=== PATIENT | female | born 1940 | race Caucasian/White ===

== ENCOUNTER → 2016-08-02 | Outpatient (CLI) | payer OTHER ==
[~2016-08-02] MED LIST: ASPI81TA28 PO; ATOR-22 PO; LISI-729 PO; METO-452 PO
--- NOTE | 2016-08-02 12:53 | DIAGNOSTIC IMAGING REPORT ---
CT OF THE CHEST WITHOUT IV CONTRAST CLINICAL HISTORY: Pulmonary nodule. COMPARISON STUDY: Chest CT December 24, 2014 and July 28, 2015. CT DOSE: 270.72 mGy.cm TECHNIQUE: Axial images of the chest were obtained without IV contrast. Images were reviewed in the axial, sagittal, and coronal planes. IV contrast was not administered for this examination. FINDINGS: No enlarged axillary, mediastinal or hilar lymph nodes are present. There are median sternotomy wires and findings consistent with bypass grafting. There is moderate cardiomegaly. Central airways are patent. There is no consolidation to suggest pneumonia. Lungs are suboptimally assessed due to respiratory motion. A 4 mm right upper lobe nodule shown image 58 of 296 is unchanged. A 5 mm right lower lobe nodule shown image 115 is unchanged. These are stable since exam December 24, 2014. The 6 mm right middle lobe nodule shown on exam of May 05, 2015 is no longer visualized. There are new new no new nodules. The bony thorax and upper abdomen are unremarkable with exception of small gallstones within the gallbladder. IMPRESSION: 1. No change in several small pulmonary nodules since initial exam of December 24, 2014. These are likely benign. A follow-up chest CT in one year to ensure stability is recommended. 2. No acute intrathoracic findings. 3. Moderate cardiomegaly. Electronically signed by: Juan Rubio M.D. 08/02/2016 12:51 PM Dictated Date/Time: 08/02/2016 12:43 PM
== END | disposition home or self-care (01) ==
LOC: C.CTS 12:14
PROVIDERS: ATTEND Internal Medicine
DX: R91.1 Solitary pulmonary nodule (principal); I51.7 Cardiomegaly

== ENCOUNTER → 2017-06-06 | Outpatient (CLI) | payer OTHER ==
[2017-06-06 17:48] LABS: HEMATOCRIT 39.1 % (37-47); HEMOGLOBIN 12.8 g/dL (12.0-16.0); MEAN CELL VOLUME 88.7 fL (80-100); MEAN CORPUSCULAR HGB CONC 32.7 g/dl (32-36); MEAN PLATELET VOLUME 10.3 fL (7.4-10.4); PLATELET COUNT 206 K/uL (130-400); RED CELL DISTRIBUTION WIDTH CV 13.6 % (11.5-14.5); WHITE BLOOD COUNT 6.76 K/uL (4.8-10.8)
[2017-06-06 18:03] LABS: ALBUMIN 3.7 gm/dl (3.4-5.0); ALT/SGPT 15 U/L (12-78); AST/SGOT 14 U/L (15-37); BLOOD UREA NITROGEN 23 mg/dl (7-18); CALCIUM 9.5 mg/dl (8.5-10.1); CARBON DIOXIDE 29 mmol/L (21-32); CHOLESTEROL 248 mg/dl (0-200); CREATININE 1.14 mg/dl (0.60-1.20); GLUCOSE 91 mg/dl (70-99); POTASSIUM 4.6 mmol/L (3.5-5.1); SODIUM 140 mmol/L (136-145)
[2017-06-06 18:06] LABS: ALKALINE PHOSPHATASE 89 U/L (45-117); LDL CHOLESTEROL CALCULATED 188 mg/dl; TOTAL PROTEIN 7.3 gm/dl (6.4-8.2)
== END | disposition home or self-care (01) ==
LOC: C.LABBFT 13:44
PROVIDERS: ATTEND Nurse Practitioner
DX: E78.5 Hyperlipidemia, unspecified (principal)

== ENCOUNTER → 2017-08-07 | Outpatient (CLI) | payer OTHER ==
--- NOTE | 2017-08-07 10:16 | DIAGNOSTIC IMAGING REPORT ---
(CHEST) THORAX WITHOUT CLINICAL HISTORY: R91.1 Pulmonary nodule, COMPARISON STUDY: August 02, 2016 , December [address] CT DOSE: 225.70 mGy.cm TECHNIQUE: CT of the thorax was performed from the thoracic inlet to the lung bases. Images are reviewed in the axial, sagittal, and coronal planes. IV contrast was not administered for this examination. A dose lowering technique was utilized adhering to the principles of ALARA. FINDINGS: Thyroid: Imaged portions of the thyroid gland are normal in appearance. Thoracic aorta: The thoracic aorta is normal in course and caliber, noting standard 3 vessel arch anatomy. Heart: The heart is is mildly enlarged with coronary artery calcifications. Lungs and pleural spaces: There is mild to moderate respiratory motion artifact. There are no pleural effusions. There is a stable 4 mm right apical pulmonary nodule. There is a stable 5 mm pulmonary nodule within the superior segment of the right lower lobe. There is a new/enlarging 4 mm solid right lower lobe pulmonary nodule as visualized in image #127/276. 6-12 month follow-up is recommended. Mediastinum: R paratracheal lymph nodes at the upper limits of normal in size. Joycelyn: There is no evidence of pathologic hilar adenopathy given the limitations of a noncontrast study Axilla: There is no evidence of pathologic axillary lymphadenopathy Upper abdomen: Cholelithiasis Skeletal structures: There are no lytic or blastic osseous lesions. IMPRESSION: 1. Examination compromised due to respiratory motion artifact 2. New/enlarging 4 mm solid right lower lobe pulmonary nodule. 6-12 month follow-up is recommended 3. The previously identified 4 mm right apical pulmonary nodule and 5 mm superior segment right lower lobe pulmonary nodule remains stable 4. Cholelithiasis Electronically signed by: Alex Stein M.D. 08/07/2017 10:15 AM Dictated Date/Time: 08/07/2017 10:05 AM
== END | disposition home or self-care (01) ==
LOC: C.CTS 09:44
PROVIDERS: ATTEND Nurse Practitioner
DX: R91.1 Solitary pulmonary nodule (principal); R91.8 Other nonspecific abnormal finding of lung field; K80.20 Calculus of gallbladder without cholecystitis without obstruction

== ENCOUNTER → 2017-12-05 | Outpatient (CLI) | payer OTHER | END | disposition home or self-care (01) | LOC: C.LABBFT 14:57 | PROVIDERS: ATTEND Internal Medicine | DX: E78.5 Hyperlipidemia, unspecified (principal) ==

== ENCOUNTER 2020-04-10 10:44 | Inpatient (IN) ==
--- NOTE | 2020-04-10 11:20 | Emergency Department Note ---
Impression & Plan COVID-19, Multifocal pneumonia ED Provider Note NAME: MICHELLE MARTIN AGE: 80 SEX: F : 1940 ARRIVES VIA: Walk-In INFORMANT: Patient, ED PROVIDER(S): Stewart Evans MD Chief Complaint: Weakness, fatigue, Cough HPI: Patient does present with weakness fatigue vomiting with associated fever and productive cough. Patient states that this been ongoing for just over the last week. Patient did try to take prednisone this morning but this did not improve her symptoms. The patient denies any fevers. The patient has had the increasing fatigue and has had poor p.o. intake. The patient denies any lower extremity swelling. The patient is a former smoker but no active smoking. The patient does not wear oxygen at baseline. Patient states that her symptoms of gotten progressively worse over this last 7 days or so. The patient denies loss of taste or smell and no known Covid contacts she denies any recent travel or recent surgeries or procedures. ROS: See HPI for pertinent positives and negatives. A total of 10 systems were reviewed and otherwise negative. Past medical history: See below Surgical history: See below Social history: See below Physical Exam: GENERAL: Tired in appearance, wearing a mask and glasses. EYE EXAM: Normal conjunctiva. PERRL, no anisocoria and EOM's grossly intact w/o pain. NECK: Supple, no nuchal rigidity, no adenopathy, non-tender. No signs of meningismus. LUNGS: Clear to auscultation. Normal chest wall mechanics. HEART: NSR, no MRG. ABDOMEN: Abdomen soft, non-tender, normo-active bowel sounds, no masses, no rebound or guarding. BACK: No CVA TTP. SKIN: No rashes and no bruising. UPPER EXTREMITIES: Upper extremities are grossly normal. LOWER EXTREMITIES: Grossly normal, no edema. Negative Homans' sign bilaterally. NEURO EXAM: A&O x3, cranial nerves II-XII grossly intact, normal speech, moves all 4 extremities on command w/o issue. Differential diagnoses: Infection, dehydration, metabolic abnormality, hypo/hyperglycemia, electrolyte disturbance, anemia, hypoxia, cardiac sources, intracerebral event, toxicologic, neurologic, as well as other pathologies. Course: Patient was seen and evaluated the bedside. Full history physical exam was performed. EKG: Indication: Weakness Normal sinus rhythm, rate 91, normal intervals, left axis deviation, no acute inversions inferiorly. No significant change from comparison EKG February 03, 2018. Imaging Studies: Radiology results as stated below per my review in the radiologist's interpretation: XR chest 1V portable CLINICAL HISTORY: weakness COMPARISON STUDY: Chest CT February 09, 2018. Chest radiograph February 02, 2015. FINDINGS: Note is made of median sternotomy wires and mediastinal surgical clips. There is no pneumothorax. There is slight blunting of the left costophrenic angle. This is likely chronic. No definite pleural effusion. Note is made of moderate cardiomegaly. There is no evidence for pulmonary edema. Mild to moderate multifocal bilateral airspace opacities are noted. IMPRESSION: Mild to moderate multifocal bilateral airspace opacities suggestive of an infectious process. Radiographic follow-up is recommended. ACT 112: Negative or not required by law. Electronically signed by: Juan Rubio M.D. 04/10/2020 12:59 PM Dictated: 04/10/20 1257Transcribed: 04/10/20 1257 Cardiac monitoring: An order was placed for continuous cardiac monitoring. The monitor shows a rate of 74 with sinus rhythm. MDM: Patient was seen due to concern for increasing weakness fatigue vomiting cough. Blood was obtained along with an EKG troponin chest x-ray. Patient's chest x- ray did show concern for multifocal pneumonia. The patient did have a brief episode of hypoxia. The patient is Covid positive. Patient did have improvement in her symptoms but given the patient has had increasing weakness fatigue poor p.o. intake is Covid positive and intermittent hypoxia believe the patient would benefit from inpatient treatment. I did speak with the hospitalist Dr. Ruby, and the patient was admitted to the medicine service. 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, saphenous growing graft to OM2, saphenous vein graft to RCA-January 2015, [facility] Family History Brother Aortic aneurysm Hypertension Father Coronary heart disease Sister Hypertension Mother Diabetes Denies family history of Breast cancer Colorectal cancer Social History Smoking Status: Never smoker Tobacco Type: Cigarettes Cigarettes Per Day: 20; Number of Years Since Quit: 45; Second Hand Exposure: No; Hx Alcohol Use: No Hx Substance Use: No Preferred Language: Japanese Communication Ability: Effective Visual Impairment: No Limitations Hearing Ability: Normal Beliefs That Will Affect Care: None marital status: Current Living Situation: Spouse current occupational status: retired current occupation: Housework/cleaning How many Children do You have: 6 Feels Safe at Home: Yes Childhood Exposure to Second-Hand Smoke: No caffeine: No during the past year weight has: remained stable Dental Care, Regularly: No Physical Activity Frequency: Does not Exercise Seatbelt Use: always Sunscreen Use: No Allergies Allergies Allergy/AdvReac Type Severity Reaction Status Date / Time No Known Allergies Allergy Verified 11/12/19 14:09 Home Meds Home Medications Medication Instructions Recorded Confirmed aspirin 81 mg chewable tablet 81 mg PO DAILY tab 10/22/18 04/10/20 labetalol 200 mg PO DAILY 04/10/20 04/10/20 Previous Rx's Medication Instructions Recorded albuterol sulfate 90 mcg/actuation 2 puffs INH Q6H PRN #8.5 gm 06/12/19 aerosol inhaler rosuvastatin 10 mg tablet 10 mg PO DAILY #90 tab 08/16/19 clopidogrel 75 mg tablet 75 mg PO DAILY #90 tab 04/10/20 Results & Data (ED) Vital Signs Vital Signs - 24 hr 04/10/20 10:54 04/10/20 11:09 04/10/20 11:49 Temperature 37.5 C Temperature Source Oral Pulse Rate 96 H Pulse Rate [Finger] Pulse Rate from SpO2 Sensor Respiratory Rate 20 Respiratory Effort / Characteristics Short of Breath Respiratory Depth Normal Respiratory Pattern Regular Blood Pressure 169/73 H Blood Pressure [Right Arm] Blood Pressure Mean 105 Blood Pressure Mean [Right Arm] Blood Pressure Position Sitting Pulse Oximetry 89 L 92 92 Oxygen Delivery Method Room Air Room Air Room Air Sepsis Recent Fever Within 48 Hours No Sepsis New/Unexplained Change in Mental Status N/A Sepsis Action Taken by Nursing No Action Required 04/10/20 12:30 04/10/20 12:58 04/10/20 13:00 Temperature Temperature Source Pulse Rate 91 H 85 82 Pulse Rate [Finger] Pulse Rate from SpO2 Sensor 56 L 71 81 Respiratory Rate 25 H 25 H 18 Respiratory Effort / Characteristics Respiratory Depth Respiratory Pattern Blood Pressure 143/70 H 145/87 H Blood Pressure [Right Arm] Blood Pressure Mean 94 99 Blood Pressure Mean [Right Arm] Blood Pressure Position Pulse Oximetry 93 93 94 Oxygen Delivery Method Sepsis Recent Fever Within 48 Hours Sepsis New/Unexplained Change in Mental Status Sepsis Action Taken by Nursing 04/10/20 13:01 04/10/20 13:30 04/10/20 13:32 Temperature Temperature Source Pulse Rate 89 96 H Pulse Rate [Finger] 80 Pulse Rate from SpO2 Sensor 73 73 Respiratory Rate 23 24 25 H Respiratory Effort / Characteristics Respiratory Depth Respiratory Pattern Blood Pressure 136/73 Blood Pressure [Right Arm] 136/73 Blood Pressure Mean 78 Blood Pressure Mean [Right Arm] 94 Blood Pressure Position Pulse Oximetry 94 94 93 Oxygen Delivery Method Room Air Sepsis Recent Fever Within 48 Hours Sepsis New/Unexplained Change in Mental Status Sepsis Action Taken by Nursing 04/10/20 14:00 04/10/20 14:01 04/10/20 14:30 Temperature Temperature Source Pulse Rate 83 79 75 Pulse Rate [Finger] Pulse Rate from SpO2 Sensor 73 78 75 Respiratory Rate 7 L 10 L 31 H Respiratory Effort / Characteristics Respiratory Depth Respiratory Pattern Blood Pressure 130/74 156/89 H Blood Pressure [Right Arm] Blood Pressure Mean 96 104 Blood Pressure Mean [Right Arm] Blood Pressure Position Pulse Oximetry 92 92 92 Oxygen Delivery Method Sepsis Recent Fever Within 48 Hours Sepsis New/Unexplained Change in Mental Status Sepsis Action Taken by Nursing 04/10/20 14:31 04/10/20 15:00 04/10/20 15:01 Temperature Temperature Source Pulse Rate 75 75 74 Pulse Rate [Finger] Pulse Rate from SpO2 Sensor 75 75 73 Respiratory Rate 29 H 5 L 25 H Respiratory Effort / Characteristics Respiratory Depth Respiratory Pattern Blood Pressure 136/82 Blood Pressure [Right Arm] Blood Pressure Mean 104 Blood Pressure Mean [Right Arm] Blood Pressure Position Pulse Oximetry 93 92 93 Oxygen Delivery Method Sepsis Recent Fever Within 48 Hours Sepsis New/Unexplained Change in Mental Status Sepsis Action Taken by [facility] Medications Current Medication List: was personally reviewed by me Laboratory Data Attestation: I reviewed the patient's lab results. Result diagrams: 04/10/20 11:13 04/10/20 11:13 Lab Results 12/04/10/20 04/10/20 Range/Units 11:13 11:13 11:13 WBC 5.80 (4.8-10.8) K/uL RBC 5.11 (4.2-5.4) M/uL Hgb 15.0 (12.0-16.0) g/dL Hct 44.3 (37-47) % MCV 86.7 (80-100) fL MCH 29.4 (25-34) pg MCHC 33.9 (32-36) g/dL RDW Std Deviation 44.2 (36.4-46.3) fL RDW Coeff of Lea 13.9 (11.5-14.5) % Plt Count 164 (130-400) K/uL MPV 10.7 H (7.4-10.4) fL Immature Gran % (Auto) 0.5 % Neut % (Auto) 62.7 % Lymph % (Auto) 22.6 % Richardson % (Auto) 14.0 % Eos % (Auto) 0.0 % Baso % (Auto) 0.2 % Neut # (Auto) 3.64 (1.4-6.5) K/uL Lymph # (Auto) 1.31 (1.2-3.4) K/uL Richardson # (Auto) 0.81 H (0.11-0.59) K/uL Eos # (Auto) 0.00 (0-0.5) K/uL Baso # (Auto) 0.01 (0-0.2) K/uL Immature Gran # (Auto) 0.03 H (0.00-0.02) K/uL PT 11.4 (9.0-12.0) Seconds INR 1.1 (0.9-1.1) D-Dimer (0-500) ug/L FEU Sodium 138 (136-145) mmol/L Potassium 3.9 (3.5-5.1) mmol/L Chloride 104 (98-107) mmol/L Carbon Dioxide 27 (21-32) mmol/L Anion Gap 7.0 (3-11) BUN 34 H (7-18) mg/dl Creatinine 1.58 H (0.6-1.2) mg/dl Est Cr Clr Drug Dosing 27.9 ml/min Est GFR ( Amer) 35.7 Est GFR (Non-Af Amer) 30.8 BUN/Creatinine Ratio 21.3 H (10-20) Glucose 108 H (70-99) mg/dl Calcium 8.7 (8.5-10.1) mg/dl Magnesium 2.3 (1.8-2.4) mg/dl Ferritin (8-388) ng/ml Total Bilirubin 1.2 H (0.2-1) mg/dl AST 21 (15-37) U/L ALT 19 (12-78) U/L Alkaline Phosphatase 64 (45-117) U/L Total Creatine Kinase (26-192) U/L Troponin I 0.024 (0-0.045) ng/ml C-Reactive Protein (0-0.29) mg/dl Total Protein 7.4 (6.4-8.2) gm/dl Albumin 3.5 (3.4-5.0) gm/dl Globulin 3.9 (2.5-4.0) gm/dl Albumin/Globulin Ratio 0.9 (0.9-2) Procalcitonin (0-0.5) ng/ml TSH 1.770 (0.300-4.500) uIu/ml COVID-19 Eval Order SARS-CoV-2, RNA, NAAT (NEGATIVE) 04/10/20 04/10/20 04/10/20 Range/Units 11:13 11:13 11:13 WBC (4.8-10.8) K/uL RBC (4.2-5.4) M/uL Hgb (12.0-16.0) g/dL Hct (37-47) % MCV (80-100) fL MCH (25-34) pg MCHC (32-36) g/dL RDW Std Deviation (36.4-46.3) fL RDW Coeff of Lea (11.5-14.5) % Plt Count (130-400) K/uL MPV (7.4-10.4) fL Immature Gran % (Auto) % Neut % (Auto) % Lymph % (Auto) % Richardson % (Auto) % Eos % (Auto) % Baso % (Auto) % Neut # (Auto) (1.4-6.5) K/uL Lymph # (Auto) (1.2-3.4) K/uL Richardson # (Auto) (0.11-0.59) K/uL Eos # (Auto) (0-0.5) K/uL Baso # (Auto) (0-0.2) K/uL Immature Gran # (Auto) (0.00-0.02) K/uL PT (9.0-12.0) Seconds INR (0.9-1.1) D-Dimer 5150 H* (0-500) ug/L FEU Sodium (136-145) mmol/L Potassium (3.5-5.1) mmol/L Chloride (98-107) mmol/L Carbon Dioxide (21-32) mmol/L Anion Gap (3-11) BUN (7-18) mg/dl Creatinine (0.6-1.2) mg/dl Est Cr Clr Drug Dosing ml/min Est GFR ( Amer) Est GFR (Non-Af Amer) BUN/Creatinine Ratio (10-20) Glucose (70-99) mg/dl Calcium (8.5-10.1) mg/dl Magnesium (1.8-2.4) mg/dl Ferritin 510.2 H (8-388) ng/ml Total Bilirubin (0.2-1) mg/dl AST (15-37) U/L ALT (12-78) U/L Alkaline Phosphatase (45-117) U/L Total Creatine Kinase 58 (26-192) U/L Troponin I (0-0.045) ng/ml C-Reactive Protein 3.59 H (0-0.29) mg/dl Total Protein (6.4-8.2) gm/dl Albumin (3.4-5.0) gm/dl Globulin (2.5-4.0) gm/dl Albumin/Globulin Ratio (0.9-2) Procalcitonin 0.08 (0-0.5) ng/ml TSH (0.300-4.500) uIu/ml COVID-19 Eval Order SARS-CoV-2, RNA, NAAT (NEGATIVE) 04/10/20 04/10/20 Range/Units 12:15 12:15 WBC (4.8-10.8) K/uL RBC (4.2-5.4) M/uL Hgb (12.0-16.0) g/dL Hct (37-47) % MCV (80-100) fL MCH (25-34) pg MCHC (32-36) g/dL RDW Std Deviation (36.4-46.3) fL RDW Coeff of Lea (11.5-14.5) % Plt Count (130-400) K/uL MPV (7.4-10.4) fL Immature Gran % (Auto) % Neut % (Auto) % Lymph % (Auto) % Richardson % (Auto) % Eos % (Auto) % Baso % (Auto) % Neut # (Auto) (1.4-6.5) K/uL Lymph # (Auto) (1.2-3.4) K/uL Richardson # (Auto) (0.11-0.59) K/uL Eos # (Auto) (0-0.5) K/uL Baso # (Auto) (0-0.2) K/uL Immature Gran # (Auto) (0.00-0.02) K/uL PT (9.0-12.0) Seconds INR (0.9-1.1) D-Dimer (0-500) ug/L FEU Sodium (136-145) mmol/L Potassium (3.5-5.1) mmol/L Chloride (98-107) mmol/L Carbon Dioxide (21-32) mmol/L Anion Gap (3-11) BUN (7-18) mg/dl Creatinine (0.6-1.2) mg/dl Est Cr Clr Drug Dosing ml/min Est GFR ( Amer) Est GFR (Non-Af Amer) BUN/Creatinine Ratio (10-20) Glucose (70-99) mg/dl Calcium (8.5-10.1) mg/dl Magnesium (1.8-2.4) mg/dl Ferritin (8-388) ng/ml Total Bilirubin (0.2-1) mg/dl AST (15-37) U/L ALT (12-78) U/L Alkaline Phosphatase (45-117) U/L Total Creatine Kinase (26-192) U/L Troponin I (0-0.045) ng/ml C-Reactive Protein (0-0.29) mg/dl Total Protein (6.4-8.2) gm/dl Albumin (3.4-5.0) gm/dl Globulin (2.5-4.0) gm/dl Albumin/Globulin Ratio (0.9-2) Procalcitonin (0-0.5) ng/ml TSH (0.300-4.500) uIu/ml COVID-19 Eval Order Covid19 [facility] SARS-CoV-2, RNA, NAAT POSITIVE A* (NEGATIVE) Administered Medications Discontinued Medications Acetaminophen (Acetaminophen 325 Mg Tab) 650 mg PO NOW STA Stop: 04/10/20 11:47 Last Admin: 04/10/20 11:54 Dose: 650 mg Documented by: [id number] Benzonatate (Benzonatate 100 Mg Capsule) 100 mg PO NOW ONE Stop: 04/10/20 11:47 Last Admin: 04/10/20 11:54 Dose: 100 mg Documented by: [id number] Dexamethasone (Dexamethasone Sod Inj 10 Mg/Ml Vial) 10 mg IV NOW ONE Stop: 04/10/20 13:04 Last Admin: 04/10/20 13:32 Dose: 10 mg Documented by: [id number] Sodium Chloride (Nss 1000ml) 1,000 mls @ 999 mls/hr IV .[id number] [id number] Stop: 04/10/20 13:00 Last Infusion: 04/10/20 13:30 Dose: 0 mls/hr Documented by: [id number] Admin: 04/10/20 11:54 Dose: 999 mls/hr Documented by: [id number] Ondansetron HCl (Ondansetron Inj 2 Mg/Ml 2 Ml Vial) 4 mg IV NOW STA Stop: 04/10/20 11:47 Last Admin: 04/10/20 11:54 Dose: 4 mg Documented by: [id number] Discharge Plan Visit Data Chief Complaint: Weakness Stated Complaint: fatigue, dehydrated, weakness ED Provider: Stewart Evans Discharge Problem: COVID-19, Multifocal pneumonia Forms Stand Alone Forms: My [facility] [place] Prescriptions Prescriptions: No Action rosuvastatin 10 mg tablet 10 mg PO DAILY Qty: 90 RF: 2 clopidogrel 75 mg tablet 75 mg PO DAILY Qty: 90 RF: 1 albuterol sulfate [Ventolin HFA] 90 mcg/actuation HFA aerosol inhaler 2 puffs INH Q6H PRN (Reason: shortness of breath or wheezing) Qty: 8.5 RF: 1 aspirin 81 mg tablet,chewable 81 mg PO DAILY RF: 0 labetalol 200 mg tablet 200 mg PO DAILY RF: 0
[2020-04-10] MEDS ORDERED: ONDANSETRON INJ 2 MG/ML 2 ML VIAL IV STA (11:46)
[2020-04-10] MEDS ORDERED: ACETAMINOPHEN 325 MG TAB PO STA (11:46)
[2020-04-10] MEDS ORDERED: BENZONATATE 100 MG CAPSULE PO ONE (11:46)
[2020-04-10 11:55] LABS: Basophils # (auto) 0.01 K/uL (0-0.2); Basophils % (auto) 0.2 %; Hematocrit (blood only) 44.3 % (37-47); Immature Granulocytes # (auto) 0.03 K/uL (0.00-0.02); Immature Granulocytes % (auto) 0.5 %; Lymphocytes # (auto) 1.31 K/uL (1.2-3.4); Lymphocytes % (auto) 22.6 %; Mean Corpuscular Hemoglobin 29.4 pg (25-34); Mean Corpuscular Hgb Conc 33.9 g/dL (32-36); Mean Corpuscular Volume 86.7 fL (80-100); Mean Platelet Volume 10.7 fL (7.4-10.4); Monocytes # (auto) 0.81 K/uL (0.11-0.59); Neutrophils # (auto) 3.64 K/uL (1.4-6.5); Neutrophils % (auto) 62.7 %; Platelet Count 164 K/uL (130-400); RDW Coefficient of Variation 13.9 % (11.5-14.5); RDW Standard Deviation 44.2 fL (36.4-46.3); Red Blood Count 5.11 M/uL (4.2-5.4)
[2020-04-10] MEDS ORDERED: SODIUM CHLORIDE 0.9% 1000ML 1,000 ML IV SCH ×2 (12:00→19:45)
[2020-04-10 12:02] LABS: Albumin Level 3.5 gm/dl (3.4-5.0); BUN Creatinine Ratio 21.3 (10-20); Calcium 8.7 mg/dl (8.5-10.1); Creatinine Clr Calc Pharmacy 27.9 ml/min; Est GFR (African American) 35.7; Est GFR (Non-African American) 30.8; Magnesium 2.3 mg/dl (1.8-2.4); Potassium 3.9 mmol/L (3.5-5.1)
[2020-04-10 12:03] LABS: INR 1.1 (0.9-1.1); Prothrombin Time 11.4 Seconds (9.0-12.0)
[2020-04-10 12:13] LABS: Albumin Globulin Ratio 0.9 (0.9-2); Bilirubin,Total 1.2 mg/dl (0.2-1); Globulin 3.9 gm/dl (2.5-4.0); Thyroid Stimulating Hormone 1.77 uIu/ml (0.300-4.500); Total Protein 7.4 gm/dl (6.4-8.2); Troponin I 0.024 ng/ml (0-0.045)
--- NOTE | 2020-04-10 13:00 | XRay Report ---
XR chest 1V portable CLINICAL HISTORY: weakness COMPARISON STUDY: Chest CT February 09, 2018. Chest radiograph February 02, 2015. FINDINGS: Note is made of median sternotomy wires and mediastinal surgical clips. There is no pneumot horax. There is slight blunting of the left costophrenic angle. This is likely chronic. No definite p leural effusion. Note is made of moderate cardiomegaly. There is no evidence for pulmonary edema. Mil d to moderate multifocal bilateral airspace opacities are noted. IMPRESSION: Mild to moderate multifocal bilateral airspace opacities suggestive of an infectious pro cess. Radiographic follow-up is recommended. ACT 112: Negative or not required by law. Electronically signed by: Juan Rubio M.D. 04/10/2020 12:59 PM
[2020-04-10] MEDS ORDERED: DEXAMETHASONE SOD INJ 10 MG/ML VIAL IV ONE (13:03)
--- NOTE | 2020-04-10 14:16 | History & Physical Report ---
Date of Service April 10, 2020 Assessment & Plan (1) COVID-19: 1-2 weeks of symptoms, unclear exact starting date. Start dexamethasone 10 day course. Isolation precautions: Airborne and droplet (2) Hypoxia: Without respiratory failure. No tachycardia despite not taking her labetalol to suggest pulmonary embolism. Aim O2 sats > 90%. (3) Elevated serum creatinine: Rise not significant enough to diagnose acute renal failure however suspect a degree of dehydration. Encourage p.o. intake NSS 1L @ 80ml/hr overnight with repeat BMP in AM (4) Pulmonary emphysema: Unclear diagnosis of this. No recent PFTs in [facility]. Patient reports not using inhaler prescribed in May. No wheezing on exam to suggest COPD exacerbation. (5) Prediabetes: HbA1c 6.1 in May. Repeat with a.m. labs. BSG ACHS with novolog for correction only while on steroids. (6) Arteriosclerosis of coronary artery: Continue aspirin, clopidogrel, labetalol (pending BP stability), rosuvastatin. (7) Hyperlipidemia: Continue rosuvastatin 10 mg p.o. daily (8) Hypertension: We will restart her usual labetalol as long as blood pressures remained stable. She is any taking this once a day at home however last prescribed 3 times a day. We will start with twice daily dosing here. (9) DVT prophylaxis: As patient takes both aspirin and plavix will treat with heparin 5000 units SQ twice daily. Elevated d-dimer - consider short term outpatient anticoagulation if discharged. Admission and Anticipated Discharge Date Admission Date: 04/10/2020 Anticipated date of discharge: 04/11/20 History of Present Illness Chief Complaint: Fatigue, cough, poor appetite. Primary Care Provider: Alexander Salguero MD Ely Redd is a 80 year old female who presents to the ER with 1-2 weeks of symptoms, poor appetite, nausea, productive cough (thick, tasted terrible), short of breath. Main reason she came in to the ER today was being unable to take her p.o. medication and complete lack of appetite with associated poor oral intake. Lives with her who is doing well. Last took her medications a week ago. No loss of taste or smell, diarrhea, headache, myalgias, abdominal or chest pain. In the ER chest x-ray was concerning for mild to moderate multifocal bilateral airspace opacities. Subsequent SARS-CoV-2 PCR positive. Procalcitonin negative. She was referred to medicine for admission and ongoing management of COVID-19 and hypoxia. Allergies Allergy/AdvReac Type Severity Reaction Status Date / Time No Known Allergies Allergy Verified 11/12/19 14:09 Home Medications Medication Instructions Recorded Confirmed Type aspirin 81 mg chewable tablet 81 mg PO DAILY tab 10/22/18 04/10/20 History albuterol sulfate 90 mcg/actuation 2 puffs INH Q6H PRN #8.5 gm 06/12/19 04/10/20 Rx aerosol inhaler rosuvastatin 10 mg tablet 10 mg PO DAILY #90 tab 08/16/19 04/10/20 Rx clopidogrel 75 mg tablet 75 mg PO DAILY #90 tab 04/10/20 04/10/20 Rx labetalol 200 mg PO DAILY 04/10/20 04/10/20 History 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, saphenous growing graft to OM2, saphenous vein graft to RCA-January 2015, [facility] Family History Brother Aortic aneurysm Hypertension Father Coronary heart disease Sister Hypertension Mother Diabetes Denies family history of Breast cancer Colorectal cancer Social History Smoking Status: Never smoker Tobacco Type: Cigarettes Cigarettes Per Day: 20; Number of Years Since Quit: 45; Second Hand Exposure: No; Do You Dip or Chew Tobacco: No; Hx Alcohol Use: Yes Hx Substance Use: No Preferred Language: Luxembourgish Communication Ability: Effective Visual Impairment: No Limitations Hearing Ability: Normal Warehouse Hand Required: No Beliefs That Will Affect Care: None marital status: Current Living Situation: Spouse current occupational status: retired current occupation: Housework/cleaning How many Children do You have: 6 Other Information That Helps Us Care for You: No Feels Safe at Home: Yes Safety Concerns: Feels Safe At This Time Childhood Exposure to Second-Hand Smoke: No caffeine: No during the past year weight has: remained stable Dental Care, Regularly: No Physical Activity Frequency: Does not Exercise Seatbelt Use: always Sunscreen Use: No Assistive Devices: Walker Review of Systems Review of Systems: All systems reviewed & are unremarkable except as noted in HPI & below Physical Exam Constitutional: well developed and + frail appearing; + not well nourished and no acute distress Eyes: + anicteric sclerae; normal pupil size ENMT: external ear and nose normal, oropharynx normal Respiratory: normal respiratory effort, lungs clear to auscultation Auscultation: no wheezes Cardiovascular: RRR, no murmur, no edema Gastrointestinal (Abdomen): normal bowel sounds, soft, nontender, no hepatosplenomegaly Musculoskeletal: no cyanosis or clubbing, extremities motor strength 5/5 Skin: no rashes, warm and dry Neurologic: moves all extremities and awake; no focal motor deficits and not confused Psychiatric: A+Ox3, euthymic affect Results & Data Results & Data ([facility]) Vital Signs (Past 12 Hours) Vital Signs Temp Pulse Pulse Resp BP BP Pulse Ox 04/10/20 13:32 80 25 H 136/73 93 04/10/20 11:49 92 04/10/20 11:09 92 04/10/20 10:54 37.5 C 96 H 20 169/73 H 89 L Diagnostic Findings XR chest 1V portable IMPRESSION: Mild to moderate multifocal bilateral airspace opacities suggestive of an infectious process. Radiographic follow-up is recommended. Medications Administered ER medications given: Dexamethasone 10 mg IV Tessalon Perles 100 mg p.o. Acetaminophen 650 mg p.o. Ondansetron 4 mg IV Acetaminophen 650 mg p.o. NSS 1 L bolus ECG Indication: SOB/dyspnea Rate (beats per minute): 91 Rhythm: normal sinus Findings: + T-wave inversion (Inferior) Comparison ECG Date: from (February 03, 2015) Change: no significant change Code Status & VTE Plan Code Status DNR/DNI as per patient wishes VTE Prophylaxis Plan VTE Prophylaxis will be ordered: Yes PG Care Time/CCT Total # of Minutes Spent Total Time Spent with Patient: Total time spent is greater than 50% in coordination of care (as documented) at patient's floor/unit and/or counseling patient: Coding Level of Care Code 02792 OBS Care - Level 3 Diagnoses COVID-19 U07.1 Hypoxia R09.02 Elevated serum creatinine R79.89 Pulmonary emphysema J43.9 Prediabetes R73.03 Arteriosclerosis of coronary artery I25.10 Hyperlipidemia E78.5 Hypertension I10 DVT prophylaxis Z29.9
[2020-04-10 14:59] LABS: C Reactive Protein 3.59 mg/dl (0-0.29); Ferritin 510.2 ng/ml (8-388)
[2020-04-10 15:16] LABS: D Dimer 5150 ug/L FEU (0-500)
[2020-04-10] MEDS ORDERED: ONDANSETRON INJ 2 MG/ML 2 ML VIAL IV PRN (18:57)
[2020-04-10] MEDS ORDERED: CARBOHYDRATES FOR HYPOGLYCEMIA PO PRN (18:57)
[2020-04-10] MEDS ORDERED: POLYETHYLENE (MIRALAX) 17 GM PACK PO PRN (18:57)
[2020-04-10] MEDS ORDERED: DEXTROSE 50% 50 ML SYRINGE IV PRN (18:57)
[2020-04-10] MEDS ORDERED: GLUCAGON FOR INJ 1 MG VIAL SQ PRN (18:57)
[2020-04-10] MEDS ORDERED: GLUCOSE 40% GEL 15 GM TUBE PO PRN (18:57)
[2020-04-10] MEDS ORDERED: ACETAMINOPHEN 325 MG TAB PO PRN (18:57)
[2020-04-10] MEDS ORDERED: GLUCOSE 10 TABS/TUBE PO PRN (18:57)
[2020-04-10] MEDS ORDERED: ALUMINUM/MAGNESIUM SUSP 30 ML UDC PO PRN (18:57)
[2020-04-10] MEDS: LABETALOL HCL 200 MG TAB PO SCH (21:47)
[2020-04-10] MEDS: ROSUVASTATIN CALCIUM 10 MG TAB PO SCH (21:47)
[2020-04-10] MEDS: CLOPIDOGREL BISULFATE 75 MG TAB PO SCH (21:47)
[2020-04-10] MEDS: HEPARIN SOD 5,000 UNIT/0.5 ML VIAL SQ SCH (21:47)
[2020-04-10] MEDS: ASPIRIN 81 MG ECTAB PO SCH (21:48)
[2020-04-10] MEDS: INSULIN ASPART 100 UNITS/ML 3 ML PEN SC SCH (21:53)
[2020-04-10 22:37] LABS: Appearance Urine Cloudy (Clear); Bacteria Urine Automated Negative (Negative); Bilirubin Urine Negative (Negative); Blood Urine Negative (Negative); Color Urine Dark Yellow; Epithelial Cell Urine Auto >30 /lpf (0-5); Glucose Urine UA Negative (Negative); Ketones Urine 1+ (Negative); Leukocyte Esterase Urine Trace (Negative); Nitrite Urine Negative (Negative); Protein Urine 1+ (Negative); RBC Urine Automated 0-4 /hpf (0-4); Urobilinogen Urine Negative (Negative)
[2020-04-10 23:04] LABS: Mucus Urine Present (None Prsent)
--- NOTE | 2020-04-11 06:18 | Electrocardiogram Report ---
Test Reason : Blood Pressure : / mmHG Vent. Rate : 091 BPM Atrial Rate : 091 BPM P-R Int : 126 ms QRS Dur : 106 ms QT Int : 362 ms P-R-T Axes : -19 -22 -34 degrees QTc Int : 445 ms Normal sinus rhythm Moderate voltage criteria for LVH, may be normal variant Inferior infarct (cited on or before 02-FEB-2015) Abnormal ECG When compared with ECG of 03-FEB-2015 06:59, No significant change was found Confirmed by Ramiro Funes ([id number]) on 04/11/2020 6:17:59 AM Referred By: Confirmed By:Ramiro Funes
[2020-04-11 06:55] LABS: Hematocrit (blood only) 40.9 % (37-47); Hemoglobin 13.3 g/dL (12.0-16.0); Immature Granulocytes # (auto) 0.03 K/uL (0.00-0.02); Immature Granulocytes % (auto) 0.7 %; Lymphocytes # (auto) 0.66 K/uL (1.2-3.4); Lymphocytes % (auto) 14.6 %; Mean Corpuscular Hemoglobin 28.4 pg (25-34); Mean Corpuscular Hgb Conc 32.5 g/dL (32-36); Mean Corpuscular Volume 87.4 fL (80-100); Mean Platelet Volume 10.5 fL (7.4-10.4); Monocytes # (auto) 0.48 K/uL (0.11-0.59); Monocytes % (auto) 10.6 %; Neutrophils # (auto) 3.35 K/uL (1.4-6.5); Neutrophils % (auto) 74.1 %; Platelet Count 154 K/uL (130-400); RDW Coefficient of Variation 13.7 % (11.5-14.5); RDW Standard Deviation 43.7 fL (36.4-46.3); Red Blood Count 4.68 M/uL (4.2-5.4); White Blood Count 4.52 K/uL (4.8-10.8)
[2020-04-11 07:24] LABS: Albumin Level 2.8 gm/dl (3.4-5.0); BUN Creatinine Ratio 27.3 (10-20); Calcium 8.5 mg/dl (8.5-10.1); Creatinine Clr Calc Pharmacy 35.5 ml/min; Est GFR (African American) 47.8; Est GFR (Non-African American) 41.3; Potassium 4.3 mmol/L (3.5-5.1)
[2020-04-11 07:27] LABS: Albumin Globulin Ratio 0.8 (0.9-2); Bilirubin,Total 1.3 mg/dl (0.2-1); Globulin 3.7 gm/dl (2.5-4.0); Total Protein 6.5 gm/dl (6.4-8.2)
[2020-04-11 07:34] LABS: Estimated Average Glucose 128 mg/dl; Hemoglobin A1C 6.1 % (4.5-5.6)
[2020-04-11] MEDS: HEPARIN SOD 5,000 UNIT/0.5 ML VIAL SQ SCH ×2 (08:33→21:51)
[2020-04-11] MEDS: ASPIRIN 81 MG ECTAB PO SCH (08:34)
[2020-04-11] MEDS: CLOPIDOGREL BISULFATE 75 MG TAB PO SCH (08:34)
[2020-04-11] MEDS: dexAMETHasone 6 MG in SYRINGE 0 ML IV SCH (08:34)
[2020-04-11] MEDS: LABETALOL HCL 200 MG TAB PO SCH ×2 (08:34→21:50)
[2020-04-11] MEDS ORDERED: DEXAMETHASONE SOD INJ 4 MG/ML VIAL IV SCH (09:00)
[2020-04-11] MEDS: INSULIN ASPART 100 UNITS/ML 3 ML PEN SC SCH ×4 (09:17→21:11)
--- NOTE | 2020-04-11 16:33 | Hospitalist Progress Note ---
Date of Service April 11, 2020 Assessment & Plan (1) COVID-19: 1-2 weeks of symptoms, unclear exact starting date. Start dexamethasone 10 day course, day 2 borderline requirement for oxygen, will monitor closely for any deterioration Isolation precautions: Airborne and droplet (2) Hypoxia: Without respiratory failure. No tachycardia despite not taking her labetalol to suggest pulmonary embolism. Aim O2 sats > 90%. stable on room air today, even when ambulating, monitor for any deterioration (3) Elevated serum creatinine: Rise not significant enough to diagnose acute renal failure however suspec t a degree of dehydration. Encourage p.o. intake NSS 1L @ 80ml/hr overnight Cr improved from 1.5 to 1.2, making adequate urine eating and drinking better, stop fluids (4) Pulmonary emphysema: Unclear diagnosis of this. No recent PFTs in [facility]. Patient reports not using inhaler prescribed in May. No wheezing on exam to suggest COPD exacerbation. (5) Prediabetes: HbA1c 6.1 in May. Repeat with a.m. labs. BSG ACHS with novolog for correction only while on steroids monitor for hyper and hypoglycemia (6) Arteriosclerosis of coronary artery: Continue aspirin, clopidogrel, labetalol (pending BP stability), rosuvastatin. (7) Hyperlipidemia: Continue rosuvastatin 10 mg p.o. daily (8) Hypertension: We will restart her usual labetalol as long as blood pressures remained stable. She is any taking this once a day at home however last prescribed 3 times a day. We will start with twice daily dosing here. (9) DVT prophylaxis: As patient takes both aspirin and plavix will treat with heparin 5000 units SQ twice daily. Elevated d-dimer - consider short term outpatient anticoagulation if discharged. Admission and Anticipated Discharge Date Admission Date: April 10, 2020 Subjective patient doing well, ambulating from the bathroom to her bed independently with a walker she is eating fairly well not requiring oxygen in the afternoon, discussed with her that if she remains on room air could consider discharge on 04/12 reviewed chart reviewed labs and imaging personally Review of Systems Review of Systems: All systems reviewed & are unremarkable except as noted in Subjective Respiratory: + dyspnea on exertion; no cough and no dyspnea Cardiovascular: no chest pain and no edema Gastrointestinal: no abdominal pain, no nausea, no vomiting, no constipation and no diarrhea/loose stools Physical Exam Constitutional: well developed, + thin and + frail appearing; no acute distress Neck: trachea midline, no thyromegaly Respiratory: normal respiratory effort, lungs clear to auscultation Cardiovascular: RRR, no murmur, no edema Gastrointestinal (Abdomen): normal bowel sounds, soft, nontender, no hepatosplenomegaly Musculoskeletal: no cyanosis or clubbing, extremities motor strength 5/5 Skin: no rashes, warm and dry Neurologic: patellar DTR's 2+ bilat, sensation intact and PERRL, EOMI, accommodation nl, no face palsy, no dysarthria Psychiatric: A+Ox3, euthymic affect Lymphatic: no cervical or axillary lymphadenopathy Results & Data Results & Data ([facility]) Vital Signs (Past 12 Hours) Vital Signs Temp Pulse Resp BP Pulse Ox 04/11/20 15:12 36.5 C 61 18 153/76 H 92 04/11/20 10:32 145/79 H 04/11/20 07:37 36.5 C 61 18 177/82 H 95 Laboratory Results Laboratory Results - last 24 hr 04/10/20 04/10/20 04/11/20 21:52 22:11 06:21 WBC 4.52 L RBC 4.68 Hgb 13.3 Hct 40.9 MCV 87.4 MCH 28.4 MCHC 32.5 RDW Std Deviation 43.7 RDW Coeff of Lea 13.7 Plt Count 154 MPV 10.5 H Immature Gran % (Auto) 0.7 Neut % (Auto) 74.1 Lymph % (Auto) 14.6 Edgar % (Auto) 10.6 Eos % (Auto) 0.0 Baso % (Auto) 0.0 Neut # (Auto) 3.35 Lymph # (Auto) 0.66 L Edgar # (Auto) 0.48 Eos # (Auto) 0.00 Baso # (Auto) 0.00 Immature Gran # (Auto) 0.03 H Sodium Potassium Chloride Carbon Dioxide Anion Gap BUN Creatinine Est Cr Clr Drug Dosing Est GFR ( Amer) Est GFR (Non-Af Amer) BUN/Creatinine Ratio Glucose POC Glucose 169 H Estimat Average Glucose Hemoglobin A1c Calcium Total Bilirubin AST ALT Alkaline Phosphatase Total Protein Albumin Globulin Albumin/Globulin Ratio Urine Color Dark Yellow Urine Appearance Cloudy A Urine pH 5.0 Ur Specific [place] 1.020 Urine Protein 1+ H Urine Glucose (UA) Negative Urine Ketones 1+ H Urine Blood Negative Urine Nitrite Negative Urine Bilirubin Negative Urine Urobilinogen Negative Ur Leukocyte Esterase Trace H Urine WBC (Auto) 1-5 Urine RBC (Auto) 0-4 U Hyaline Cast (Auto) 5-10 H U Epithel Cells (Auto) >30 H Urine Bacteria (Auto) Negative Granular Casts 1-5 H Urine Mucus Present A 04/11/20 04/11/20 04/11/20 06:21 06:21 08:25 WBC RBC Hgb Hct MCV MCH MCHC RDW Std Deviation RDW Coeff of Lea Plt Count MPV Immature Gran % (Auto) Neut % (Auto) Lymph % (Auto) Edgar % (Auto) Eos % (Auto) Baso % (Auto) Neut # (Auto) Lymph # (Auto) Edgar # (Auto) Eos # (Auto) Baso # (Auto) Immature Gran # (Auto) Sodium 143 Potassium 4.3 Chloride 111 H Carbon Dioxide 25 Anion Gap 8.0 BUN 34 H Creatinine 1.24 H D Est Cr Clr Drug Dosing 35.5 Est GFR ( Amer) 47.8 Est GFR (Non-Af Amer) 41.3 BUN/Creatinine Ratio 27.3 H Glucose 133 H POC Glucose 120 H Estimat Average Glucose 128 Hemoglobin A1c 6.1 H Calcium 8.5 Total Bilirubin 1.3 H AST 19 ALT 15 Alkaline Phosphatase 57 Total Protein 6.5 Albumin 2.8 L Globulin 3.7 Albumin/Globulin Ratio 0.8 L Urine Color Urine Appearance Urine pH Ur Specific [place] Urine Protein Urine Glucose (UA) Urine Ketones Urine Blood Urine Nitrite Urine Bilirubin Urine Urobilinogen Ur Leukocyte Esterase Urine WBC (Auto) Urine RBC (Auto) U Hyaline Cast (Auto) U Epithel Cells (Auto) Urine Bacteria (Auto) Granular Casts Urine Mucus 04/11/20 12:04 WBC RBC Hgb Hct MCV MCH MCHC RDW Std Deviation RDW Coeff of Lea Plt Count MPV Immature Gran % (Auto) Neut % (Auto) Lymph % (Auto) Edgar % (Auto) Eos % (Auto) Baso % (Auto) Neut # (Auto) Lymph # (Auto) Edgar # (Auto) Eos # (Auto) Baso # (Auto) Immature Gran # (Auto) Sodium Potassium Chloride Carbon Dioxide Anion Gap BUN Creatinine Est Cr Clr Drug Dosing Est GFR ( Amer) Est GFR (Non-Af Amer) BUN/Creatinine Ratio Glucose POC Glucose 114 H Estimat Average Glucose Hemoglobin A1c Calcium Total Bilirubin AST ALT Alkaline Phosphatase Total Protein Albumin Globulin Albumin/Globulin Ratio Urine Color Urine Appearance Urine pH Ur Specific [place] Urine Protein Urine Glucose (UA) Urine Ketones Urine Blood Urine Nitrite Urine Bilirubin Urine Urobilinogen Ur Leukocyte Esterase Urine WBC (Auto) Urine RBC (Auto) U Hyaline Cast (Auto) U Epithel Cells (Auto) Urine Bacteria (Auto) Granular Casts Urine Mucus Medications Administered Current Inpatient Medications Acetaminophen (Acetaminophen 325 Mg Tab) 650 mg PO Q4H PRN PRN Reason: pain/fever Stop: 05/10/20 18:56 Al Hydrox/Mg Hydrox/Simethicone (Aluminum/Magnesium Susp 30 Ml Udc) 30 ml PO Q6H PRN PRN Reason: Dyspepsia Stop: 05/10/20 18:56 Aspirin (Aspirin 81 Mg Ectab) 81 mg PO DAILY [facility] Stop: 05/10/20 19:44 Last Admin: 04/11/20 08:34 Dose: 81 mg Documented by: Clopidogrel Bisulfate (Clopidogrel Bisulfate 75 Mg Tab) 75 mg PO DAILY [facility] Stop: 05/10/20 19:44 Last Admin: 04/11/20 08:34 Dose: 75 mg Documented by: Dextrose (Dextrose 50% 50 Ml Syringe) 25 - 50 ml IV UD PRN; Protocol PRN Reason: Hypoglycemia Protocol Stop: 05/10/20 18:56 Glucagon (Glucagon For Inj 1 Mg Vial) 1 mg SQ UD PRN; Protocol PRN Reason: Hypoglycemia Protocol Stop: 05/10/20 18:56 Glucose (Glucose 10 Tabs/Tube) 4 - 8 tabs PO UD PRN; Protocol PRN Reason: Hypoglycemia Protocol Stop: 05/10/20 18:56 Glucose (Glucose 40% Gel 15 Gm Tube) 15 - 30 gm PO UD PRN; Protocol PRN Reason: Hypoglycemia Protocol Stop: 05/10/20 18:56 Heparin Sodium (Porcine) (Heparin Sod 5,000 Unit/0.5 Ml Vial) 5,000 units SQ BID [facility] Stop: 05/10/20 20:59 Last Admin: 04/11/20 08:33 Dose: 5,000 units Documented by: Dexamethasone Sodium Phosphate (6 mg/ Syringe) 1.5 mls @ 1 mls/min IV QAM [facility] Stop: 04/20/20 08:59 Last Admin: 04/11/20 08:34 Dose: 1 mls/min Documented by: Insulin Aspart (Insulin Aspart 100 Units/Ml 3 Ml Pen) 0 units SC ACHS [facility] Stop: 05/10/20 20:59 Last Admin: 04/11/20 13:07 Dose: Not Given Documented by: Labetalol HCl (Labetalol Hcl 200 Mg Tab) 200 mg PO BID [facility] Stop: 05/10/20 20:59 Last Admin: 04/11/20 08:34 Dose: 200 mg Documented by: Miscellaneous (Carbohydrates For Hypoglycemia ) 15 - 30 gm PO UD PRN PRN Reason: Hypoglycemia Protocol Stop: 05/10/20 18:56 Ondansetron HCl (Ondansetron Inj 2 Mg/Ml 2 Ml Vial) 4 mg IV Q6H PRN PRN Reason: Nausea Stop: 05/10/20 18:56 Polyethylene Glycol (Polyethylene (Miralax) 17 Gm Pack) 17 gm PO DAILY PRN PRN Reason: Constipation Stop: 05/10/20 18:56 Rosuvastatin Calcium (Rosuvastatin Calcium 10 Mg Tab) 10 mg PO HS [facility] Stop: 05/10/20 20:59 Last Admin: 04/10/20 21:47 Dose: 10 mg Documented by: PG Care Time/CCT Total # of Minutes Spent Total Time Spent with Patient: Total time spent is greater than 50% in coordination of care (as documented) at patient's floor/unit and/or counseling patient: Coding Level of Care Code 35249 Subseq Hosp Care Lvl 2 Diagnoses COVID-19 U07.1 Hypoxia R09.02 Elevated serum creatinine R79.89 Pulmonary emphysema J43.9 Prediabetes R73.03 Arteriosclerosis of coronary artery I25.10 Hyperlipidemia E78.5 Hypertension I10 DVT prophylaxis Z29.9
[2020-04-11] MEDS: ROSUVASTATIN CALCIUM 10 MG TAB PO SCH (21:51)
[2020-04-12] MEDS: HEPARIN SOD 5,000 UNIT/0.5 ML VIAL SQ SCH ×2 (08:20→22:01)
[2020-04-12] MEDS: LABETALOL HCL 200 MG TAB PO SCH ×2 (08:20→22:02)
[2020-04-12] MEDS: ASPIRIN 81 MG ECTAB PO SCH (08:20)
[2020-04-12] MEDS: CLOPIDOGREL BISULFATE 75 MG TAB PO SCH (08:20)
[2020-04-12] MEDS: dexAMETHasone 6 MG in SYRINGE 0 ML IV SCH (08:21)
[2020-04-12] MEDS: INSULIN ASPART 100 UNITS/ML 3 ML PEN SC SCH ×4 (09:15→20:44)
[2020-04-12 09:52] LABS: Basophils # (auto) 0.01 K/uL (0-0.2); Basophils % (auto) 0.1 %; Eosinophils # (auto) 0.01 K/uL (0-0.5); Eosinophils % (auto) 0.1 %; Hematocrit (blood only) 38.9 % (37-47); Immature Granulocytes # (auto) 0.04 K/uL (0.00-0.02); Immature Granulocytes % (auto) 0.6 %; Lymphocytes # (auto) 1.04 K/uL (1.2-3.4); Lymphocytes % (auto) 15.3 %; Mean Corpuscular Hgb Conc 33.4 g/dL (32-36); Mean Corpuscular Volume 86.8 fL (80-100); Mean Platelet Volume 10.3 fL (7.4-10.4); Monocytes # (auto) 0.61 K/uL (0.11-0.59); Neutrophils # (auto) 5.09 K/uL (1.4-6.5); Neutrophils % (auto) 74.9 %; Platelet Count 201 K/uL (130-400); RDW Coefficient of Variation 13.9 % (11.5-14.5); RDW Standard Deviation 44.3 fL (36.4-46.3); Red Blood Count 4.48 M/uL (4.2-5.4)
[2020-04-12 10:29] LABS: Albumin Level 2.8 gm/dl (3.4-5.0); BUN Creatinine Ratio 23.8 (10-20); Calcium 8.6 mg/dl (8.5-10.1); Creatinine Clr Calc Pharmacy 32.6 ml/min; Est GFR (African American) 43.2; Est GFR (Non-African American) 37.2; Potassium 3.9 mmol/L (3.5-5.1)
[2020-04-12 10:32] LABS: Albumin Globulin Ratio 0.8 (0.9-2); Bilirubin,Total 0.9 mg/dl (0.2-1); Globulin 3.3 gm/dl (2.5-4.0); Total Protein 6.1 gm/dl (6.4-8.2)
--- NOTE | 2020-04-12 16:20 | Hospitalist Progress Note ---
Date of Service April 12, 2020 Assessment & Plan (1) COVID-19: 1-2 weeks of symptoms, unclear exact starting date, COVID positive here on 04/10. Continue dexamethasone for a 10 day course. 2 step with O2 required, will order overnight pulse ox for tonight Isolation precautions: Airborne and droplet (2) Hypoxia: Without respiratory failure. No tachycardia despite not taking her labetalol to suggest pulmonary embolism. Aim O2 sats > 90%. (3) Elevated serum creatinine: Rise not significant enough to diagnose acute renal failure however suspect a degree of dehydration. Creat is 1.35 which does not appear to be far from her baseline Encourage p.o. intake (4) Pulmonary emphysema: Unclear diagnosis of this. No recent PFTs in [facility]. Patient reports not using inhaler prescribed in May. No wheezing on exam to suggest COPD exacerbation. (5) Prediabetes: HbA1c 6.1 BSG ACHS with novolog for correction only while on steroids. (6) Arteriosclerosis of coronary artery: Continue aspirin, clopidogrel, labetalol, rosuvastatin. (7) Hyperlipidemia: Continue rosuvastatin 10 mg p.o. daily (8) Hypertension: Continue labetolol - She is only taking this once a day at home however last prescribed 3 times a day. We will start with twice daily dosing here. (9) DVT prophylaxis: As patient takes both aspirin and plavix will treat with heparin 5000 units SQ twice daily. Elevated d-dimer - consider short term outpatient anticoagulation if discharged. Admission and Anticipated Discharge Date Admission Date: April 10, 2020 Subjective Ms. Redd is feeling pretty good today, ok on her feet. She does not feel sob, does have a mild cough. Eating and drinking well. Review of Systems Constitutional: no fever, no chills and no body aches Respiratory: as per Subjective / HPI Cardiovascular: no chest pain, no dyspnea and no palpitations Gastrointestinal: no abdominal pain, no nausea and no vomiting Genitourinary: no dysuria and no urinary hesitancy Musculoskeletal: no back pain and no joint pain Integumentary: no rash Physical Exam Physical Exam: General: no distress Eyes: normal inspection, PERLL Respiratory: chest non tender, clear to auscultation, normal breath sounds, no respiratory distress, no accessory muscle use Cardiac: regular rate and rhythm, no rub or gallop, no murmur, no edema, no jvd GI/: active bowel sounds, no abd pain or tenderness, soft, non distended Extremities: normal range of motion, normal strength, non tender Neuro/Psych: alert and oriented x 3, normal mood and affect Skin: normal color, dry Results & Data Results & Data ([facility]) Vital Signs (Past 12 Hours) Vital Signs Temp Pulse Pulse Pulse Pulse Pulse Pulse 04/12/20 15:08 36.4 C L 55 L 04/12/20 10:20 58 L 63 61 65 54 L 04/12/20 07:35 37.0 C 63 Pulse Resp Resp Resp Resp Resp Resp 04/12/20 15:08 18 04/12/20 10:20 61 18 18 18 18 18 04/12/20 07:35 16 Resp BP Pulse Ox Pulse Ox Pulse Ox Pulse Ox Pulse Ox 04/12/20 15:08 142/74 H 92 04/12/20 10:20 18 90 88 L 92 86 L 04/12/20 07:35 129/72 94 Pulse Ox Pulse Ox 04/12/20 15:08 04/12/20 10:20 93 87 L 04/12/20 07:35 PG Care Time/CCT Total # of Minutes Spent Total Time Spent with Patient: Total time spent is greater than 50% in coordination of care (as documented) at patient's floor/unit and/or counseling patient: Coding Level of Care Code 44973 Subseq Hosp Care Lvl 2 Diagnoses COVID-19 U07.1 Hypoxia R09.02 Elevated serum creatinine R79.89 Pulmonary emphysema J43.9 Prediabetes R73.03 Arteriosclerosis of coronary artery I25.10 Hyperlipidemia E78.5 Hypertension I10 DVT prophylaxis Z29.9
[2020-04-12] MEDS: ROSUVASTATIN CALCIUM 10 MG TAB PO SCH (22:02)
[2020-04-13] MEDS: HEPARIN SOD 5,000 UNIT/0.5 ML VIAL SQ SCH (08:19)
[2020-04-13] MEDS: CLOPIDOGREL BISULFATE 75 MG TAB PO SCH (08:19)
[2020-04-13] MEDS: ASPIRIN 81 MG ECTAB PO SCH (08:19)
[2020-04-13] MEDS: dexAMETHasone 6 MG in SYRINGE 0 ML IV SCH (08:19)
[2020-04-13] MEDS: LABETALOL HCL 200 MG TAB PO SCH (08:19)
[2020-04-13 08:31] LABS: Basophils # (auto) 0.01 K/uL (0-0.2); Basophils % (auto) 0.2 %; Eosinophils # (auto) 0.01 K/uL (0-0.5); Eosinophils % (auto) 0.2 %; Hematocrit (blood only) 41.4 % (37-47); Hemoglobin 13.4 g/dL (12.0-16.0); Immature Granulocytes # (auto) 0.06 K/uL (0.00-0.02); Immature Granulocytes % (auto) 1.1 %; Lymphocytes % (auto) 26.7 %; Mean Corpuscular Hemoglobin 28.3 pg (25-34); Mean Corpuscular Hgb Conc 32.4 g/dL (32-36); Mean Corpuscular Volume 87.5 fL (80-100); Mean Platelet Volume 10.5 fL (7.4-10.4); Monocytes # (auto) 0.69 K/uL (0.11-0.59); Monocytes % (auto) 12.3 %; Neutrophils # (auto) 3.34 K/uL (1.4-6.5); Neutrophils % (auto) 59.5 %; Platelet Count 227 K/uL (130-400); RDW Coefficient of Variation 13.8 % (11.5-14.5); RDW Standard Deviation 44.1 fL (36.4-46.3); Red Blood Count 4.73 M/uL (4.2-5.4); White Blood Count 5.61 K/uL (4.8-10.8)
[2020-04-13 09:05] LABS: Calcium 9.2 mg/dl (8.5-10.1); Creatinine Clr Calc Pharmacy 34.1 ml/min; Est GFR (African American) 45.6; Est GFR (Non-African American) 39.4
[2020-04-13 09:07] LABS: Albumin Globulin Ratio 0.8 (0.9-2); Bilirubin,Total 0.8 mg/dl (0.2-1); Globulin 3.6 gm/dl (2.5-4.0); Total Protein 6.6 gm/dl (6.4-8.2)
[2020-04-13] MEDS: INSULIN ASPART 100 UNITS/ML 3 ML PEN SC SCH ×2 (09:11→12:51)
--- NOTE | 2020-04-13 11:22 | Discharge Summary ---
Date of Service April 13, 2020 Admission HPI Per Admitting Provider Ely Redd is a 80 year old female who presents to the ER with 1-2 weeks of symptoms, poor appetite, nausea, productive cough (thick, tasted terrible), short of breath. Main reason she came in to the ER today was being unable to take her p.o. medication and complete lack of appetite with associated poor oral intake. Lives with her who is doing well. Last took her medications a week ago. No loss of taste or smell, diarrhea, headache, myalgias, abdominal or chest pain. In the ER chest x-ray was concerning for mild to moderate multifocal bilateral airspace opacities. Subsequent SARS-CoV-2 PCR positive. Procalcitonin negative. She was referred to medicine for admission and ongoing management of COVID-19 and hypoxia. Principal Diagnosis COVID infection Discharge Exam Constitutional WD/WN, vitals as above Respiratory normal respiratory effort, lungs clear to auscultation Cardiovascular RRR, no murmur, no edema Gastrointestinal (Abdomen) normal bowel sounds, soft, nontender, no hepatosplenomegaly Musculoskeletal no cyanosis or clubbing, extremities motor strength 5/5 Skin no rashes, warm and dry Neurologic moves all extremities and awake Psychiatric A+Ox3, euthymic affect Discharge Data Allergies Allergy/AdvReac Type Severity Reaction Status Date / Time No Known Allergies Allergy Verified 11/12/19 14:09 Consultations 04/10/20 13:22 ED Decision to Admit Stat Hospital Course (1) COVID-19: 1-2 weeks of symptoms, unclear exact starting date, diagnosed 04/10. Started dexamethasone 10 day course, will need 6 more days. Per 2 step and overnight pulse ox studies - patient prescribed O2 for home 2L with rest and 3L with activity Isolation precautions: Airborne and droplet - continue quarantine for at least 14 days (2) Hypoxia: Without respiratory failure, no chest pain. No tachycardia despite not taking her labetalol to suggest pulmonary embolism. Aim O2 sats > 90%. Will need oxygen for home as above (3) Elevated serum creatinine: Rise not significant enough to diagnose acute renal failure however suspect a degree of dehydration, now at baseline Encourage p.o. intake eating and drinking better at this point (4) Pulmonary emphysema: Unclear diagnosis of this. No recent PFTs in [facility]. Patient reports not using inhaler prescribed in May. No wheezing on exam to suggest COPD exacerbation. Follow with pcp (5) Prediabetes: HbA1c 6.1 BSG ACHS with novolog for correction only while on steroids Sugars stable with steroids Will avoid covering for home as she has rarely needed any insulin this stay and tolerate higher sugars over the next 6 days (6) Arteriosclerosis of coronary artery: Continue aspirin, clopidogrel, labetalol, rosuvastatin. (7) Hyperlipidemia: Continue rosuvastatin 10 mg p.o. daily (8) Hypertension: Continue labetolol - She is only taking this once a day at home however last prescribed 3 times a day. Continue twice daily dosing here and at discharge - continue to titrate with pcp (9) DVT prophylaxis: As patient takes both aspirin and plavix will treat with heparin 5000 units SQ twice daily. Will dc heparin at discharge and continue with home ASA, plavix Total Time Total Time Spent Total Time Spent (In Minutes): greater than 30 minutes Discharge Plan Discharge Items Patient Disposition: Home - Self-Care Reason For Visit: COVID-19 PNEUMONIA, HYPOXIA Discharge Diagnosis: COVID - 19 Activity: Resume your previous activity Activity Comment: gradually as tolerated Non-emergency contact: Primary Care Provider Call non-emergency contact if: you have any medication questions and your symptoms worsen Follow-up/Referrals: Naseem Salguero MD [Primary Care Provider] - 04/21/20 11:00 am (YOUR APPOINTMENT WILL BE TELEHEALTH WITH PAT.) Diet: Heart Healthy Addtl Attending Provider Instructions: (1) COVID-19: COVID positive here on 04/10. Continue dexamethasone for a 10 day course total. You will have 6 more days to complete your Decadron course You will go home with Oxygen 2L at rest and and night and 3L with activity CDC recommendations are to discontinue COVID isolation after 10 days for less severe COVID cases or up to 20 days for more severe. You should quarantine for at least 14 days given your more severe case. (2) Hypertension: Continue labetolol - you were increased to twice daily dosing here. Continue working with your primary care provider on titrating your dose. You should take your blood pressure daily after sitting quietly with legs uncrossed for five minutes and keep a log to take with you to your next appointment Home Isolation COVID-19 Instructions The following information about Home Isolation is from the CDC Website: https://www.cdc.gov/coronavirus/2019-ncov/hcp/mtifczzs-weqbgil-pvhzmj.html Stay home except to get medical care People who are mildly ill with COVID-19 are able to isolate at home during their illness. You should restrict activities outside your home, except for getting medical care. Do not go to work, school, or public areas. Avoid using public transportation, ride-sharing, or taxis. Separate yourself from other people and animals in your home People: As much as possible, you should stay in a specific room and away from other people in your home. Also, you should use a separate bathroom, if available. Animals: You should restrict contact with pets and other animals while you are sick with COVID-19, just like you would around other people. Although there have not been reports of pets or other animals becoming sick with COVID-19, it is still recommended that people sick with COVID-19 limit contact with animals until more information is known about the virus. When possible, have another member of your household care for your animals while you are sick. If you are sick with COVID-19, avoid contact with your pet, including petting, snuggling, being kissed or licked, and sharing food. If you must care for your pet or be around animals while you are sick, wash your hands before and after you interact with pets and wear a face mask. Call ahead before visiting your doctor If you have a medical appointment, call the healthcare provider and tell them that you have or may have COVID-19. This will help the healthcare providers office take steps to keep other people from getting infected or exposed. Wear a face mask You should wear a face mask when you are around other people (e.g., sharing a room or vehicle) or pets and before you enter a healthcare providers office. If you are not able to wear a face mask (for example, because it causes trouble breathing), then people who live with you should not stay in the same room with you, or they should wear a face mask if they enter your room. Cover your coughs and sneezes Cover your mouth and nose with a tissue when you cough or sneeze. Throw used tissues in a lined trash can. Immediately wash your hands with soap and water for at least 20 seconds or, if soap and water are not available, clean your hands with an alcohol-based hand camera repair technician that contains at least 60% alcohol. Clean your hands often Wash your hands often with soap and water for at least 20 seconds, especially after blowing your nose, coughing, or sneezing; going to the bathroom; and before eating or preparing food. If soap and water are not readily available, use an alcohol-based hand camera repair technician with at least 60% alcohol, covering all surfaces of your hands and rubbing them together until they feel dry. Soap and water are the best option if hands are visibly dirty. Avoid touching your eyes, nose, and mouth with unwashed hands. Avoid sharing personal household items You should not share dishes, drinking glasses, cups, eating utensils, towels, or bedding with other people or pets in your home. After using these items, they should be washed thoroughly with soap and water. Clean all high-touch surfaces everyday High touch surfaces include counters, tabletops, doorknobs, bathroom fixtures, toilets, phones, keyboards, tablets, and bedside tables. Also, clean any surfaces that may have blood, stool, or body fluids on them. Use a household cleaning spray or wipe, according to the label instructions. Labels contain instructions for safe and effective use of the cleaning product including precautions you should take when applying the product, such as wearing gloves and making sure you have good ventilation during use of the product. Monitor your symptoms Seek prompt medical attention if your illness is worsening (e.g., difficulty breathing).Beforeseeking care, call your healthcare provider and tell them that you have, or are being evaluated for, COVID-19. Put on a face mask before you enter the facility. These steps will help the healthcare providers office to keep other people in the office or waiting room from getting infected or exposed. Ask your healthcare provider to call the local or state health department. Persons who are placed under active monitoring or facilitated self- monitoring should follow instructions provided by their local health department or occupational health professionals, as appropriate. When working with your local health department check their available hours. If you have a medical emergency and need to call 911, notify the dispatch personnel that you have, or are being evaluated for COVID-19. If possible, put on a face mask before emergency medical services arrive. Discontinuing home isolation Patients with confirmed COVID-19 should remain under home isolation precautions until the risk of secondary transmission to others is thought to be low. The decision to discontinue home isolation precautions should be made on a [id number] basis, in consultation with healthcare providers and state and local health departments. Coronavirus disease 2019 (COVID-19) is a virus that causes a respiratory illness. It is caused by a coronavirus called 2019 novel coronavirus (2019- nCoV). There are many types of coronavirus. Coronaviruses are a very common cause of bronchitis. They may sometimes cause lung infection(pneumonia). Symptoms can range from mild to severe respiratory illness. These viruses are also foundin some animals. COVID-19 was first found in people in [facility], in late 2018. In 2019, several cases of COVID-19 have been confirmed in the [place] Public health officials are working to find the source. How the virus spreads is not yet fully known. It may be spread through droplets of fluid that a person coughs or sneezes into the air. It may be spread if you touch a surface with virus on it, such as a handle or object, and then touch your mouth. What are the symptoms of COVID-19? Some people have no symptoms or mild symptoms. Symptoms may appear 2 to 14 days after contact with the virus. Symptoms can include: Fever Coughing Trouble breathing What are possible complications from COVID-19? In many cases, this virus can cause infection (pneumonia) in both lungs. In some cases, this can cause . How is COVID-19 diagnosed? Your healthcare provider will ask about your symptoms. He or she will also ask about your recent travel and contact with sick people. Testing for the virus is only done through the CDC. If yourhealthcare provider thinks you may have COVID- 19, he or she will work with your local health department and the CDC on testing. Follow all instructions from your healthcare provider. COVID-19 is diagnosed by: Nasal and throat swab. A cotton-tipped swab is wiped inside your nose or throat. This is done to check for viruses in your nasal mucus. Sputum culture. A small sample of mucus coughed from your lungs (sputum) is collected if you have a cough. It is checked for the virus. How is COVID-19 treated? There is currently no medicine to treat the virus. Treatment is done to help your body while it fights the virus. This is known as supportive care. Supportive care may include: Pain medicine. These include acetaminophen and ibuprofen. They are used to help ease pain and reduce fever. Bed rest. This helps your body fight the illness. For severe illness, you may need to stay in the hospital. Care during severe illness may include: IV (intravenous) fluids.These are given through a vein to help keep your body hydrated. Oxygen. Supplemental oxygen or ventilation with a breathing machine (ventilator) may be given. This is done to keep enough oxygen in your body. Are you at risk for COVID-19? If youve been to a place where people have been sick with this virus, you are at risk for infection. You are at risk if you: Recently traveled to an affected area Had contact with a sick person who recently traveled to this area Had contact with a person who was diagnosed with COVID-19 How can COVID-19 be prevented? There is no vaccine yet. The best prevention is to not have contact with the virus. The CDC advises that people should not travel to areas where there are COVID-19 outbreaks right now for any reason that is not urgent. To help prevent spreading the infection, wash your hands often, or use an alcohol-basedhand camera repair technician. If you are in an area with COVID-19: Wash your hands often. Or use an alcohol-based hand camera repair technician often. Only touch your eyes, nose, or mouth with clean hands. Dont have contact with people who are sick. Follow local instructions about being in public. For example, you may be told to not use public transport for a period of time. Stay away from markets that have live or animals. Wash your hands after touching any animals. Don't touch animals that may be sick. Dont share eating or drinking tools with sick people. Dont kiss someone who is sick. Clean surfaces often with disinfectant. If you were in an area with COVID-19 in the last 14 days: Call your healthcare provider. He or she can talk with local health staff to see what action may be needed. Follow all instructions from your provider. Take your temperature every morning and evening for at least 14 days. This is to check for fever. Keep a record of the readings. Keep watch for symptoms of the virus. Tell your provider right away if you have symptoms. If you were in an area with COVID-19 and have a fever or other symptoms: Dont panic. Keep in mind that other illnesses can cause similar symptoms. Stay away from work, school, and public places. Limit physical contact with family members. Don't kiss anyone or share eating or drinking utensils. Clean surfaces you touch with disinfectant. This is to help prevent the virus from spreading. Call your healthcare provider. Explain that you have been exposed to COVID-19 and have symptoms. Do this before going to any hospital. Wait for instructions. Keep in mind that healthcare staff may wear protective equipment such as masks, gowns, gloves, and eye protection. You may be put in a separate room. This is to prevent the possible virus from spreading. Tell the healthcare staff about recent travel. This includes local travel on public transport. Staff may need to find other people you have been in contact with. Follow all instructions the healthcare staff give you. If you have been diagnosed with COVID-19 Follow all instructions from your healthcare provider. Dont leave your home, except to get medical care. Call your healthcare providers office before going. They can prepare and give you instructions. This will help prevent the virus from spreading. Dont go to work, school, or public areas. Dont use public transport or taxis. Stay away from other people in your home. Have them wear face masks around you. Dont share household items or food. Wear a face mask if you can. This includes at home or in a medical facility. Cover your face with a tissue when you cough or sneeze. Throw the tissue away. Wash your hands. Wash your hands often. Caregivers should: Follow all instructions from healthcare staff. Wear a face mask and protective clothing as advised. Wash hands often. Keep track of the sick persons symptoms. Clean surfaces, fabrics, and laundry thoroughly. Keep other people away from the sick person. When to call your healthcare provider Call your healthcare provider: If youve recently traveled and have symptoms If you have been diagnosed with COVID-19 and your symptoms are worse To learn more To find out more about COVID-19, visit the CDC website at www.cdc.gov/coronavirus/2019-ncov/index.html. [employer]. [address] [place] [address], [place] [address]. All rights reserved. This information is not intended as a substitute for professional medical care. Always follow your healthcare professional's instructions. This information has been adapted from [employer] Pending Studies at Discharge: No Stand-Alone Forms: My [facility], Smoking Cessation Medications and DC Order Prescriptions: New dexamethasone 6 mg tablet 6 mg PO DAILY Qty: 6 RF: 0 Continued rosuvastatin 10 mg tablet 10 mg PO DAILY Qty: 90 RF: 2 clopidogrel 75 mg tablet 75 mg PO DAILY Qty: 90 RF: 1 albuterol sulfate [Ventolin HFA] 90 mcg/actuation HFA aerosol inhaler 2 puffs INH Q6H PRN (Reason: shortness of breath or wheezing) Qty: 8.5 RF: 1 aspirin 81 mg tablet,chewable 81 mg PO DAILY RF: 0 Changed labetalol 200 mg tablet 200 mg PO BID Qty: 0 RF: 0 Discharge Orders: Discharge Order (Routine); Ordered 04/13/20 Ordered By: Cherry Cotton/Other Patient Handouts: 5 Steps for Eating Healthier, A1C Admission Data Admit Date/Time: 04/13/20 09:08 Attending Provider: Tony Mcmillan Admit Provider: Cordell Ruby Primary Care Provider: Naseem Salguero Other Providers: Cordell Ruby Other Interventions: Discharge Summary Assessment (RN) Last Done: 04/13/20 11:53 Supervising Physician Co-Signing Physician Notes Patient seen and examined on the day of discharge. I agree with the discharge summary by Cherry CARIAS. I have reviewed the chart including labs, imaging and plans for discharge. patient feeling great, no dyspnea at rest and hardly any dyspnea on exertion no fever/chills, eating well at baseline functional status, clear to go home - COVID 19 pneumonia: will complete a course of dexamethasone at home two step showed 1L at rest and 3L on exertion, home oxygen arranged should be able to titrate off in 1-2 weeks stay well nourished, well hydrated isolate for 14 days from initial symptoms Coding Level of Care Code D/C Day Management >30 mins Diagnoses COVID-19 U07.1 Hypoxia R09.02 Elevated serum creatinine R79.89 Pulmonary emphysema J43.9 Prediabetes R73.03 Arteriosclerosis of coronary artery I25.10 Hyperlipidemia E78.5 Hypertension I10 DVT prophylaxis Z29.9
== END 2020-04-13 15:31 | disposition home or self-care (01) | DRG 177 ==
LOC: EDINP 10:44 → ED 10:44 → SUATTDRO 14:42 → 3E 21:38

== ENCOUNTER 2024-10-29 10:39 | Inpatient (IN) ==
--- NOTE | 2024-10-24 14:23 | Anesthesiology Consultation ---
Date of Service October 24, 2024 Assessment & Plan (1) Encounter for pre-operative examination: Chart Review Chart Review: Acceptable Risk for Surgery (pending surgeon ordered cardio clearance ) and Patient NOT seen in Pre Admission Testing - Awaiting cardio clearance ([facility] Cardio) 10/28/24 - Check CBC with diff stat DOS (to recheck anemia) -Infectious Disease screening: Per PAT nursing assessment on 10/24/24. No known infectious disease contacts in past 10 days or current infectious disease symptoms. No recent travel outside the country. Seen by PCP 10/23/24= seen for hospital follow up. Feeling better and doing well. Gallbladder stent surgically placed. Stent and drain in place, stable/intact/draining. Antibiotic completed. General surgery follow up 10/28/24. Non surgical candidate for cholecystectomy until AAA is repaired. AAA- has appt with [facility] vascular tomorrow. Sepsis- symptoms resolved/stable Skin Lesion of Back Excision 01/13/22= Done under GA with Grade 1 view with MAC #3. ETT #7.5. Atraumatic x 1 History Surgery Operation Date: 10/29/24 12:00 Proposed Procedures p Endovascular Repair of Abdominal Aortic Aneurysm - Christoph Faye MD Height/Weight Height: 5 ft 2 in Weight: 62.868 kg Allergies Allergy/AdvReac Type Severity Reaction Status Date / Time donepezil AdvReac Mild Nausea Verified 10/24/24 13:25 Medications Home Medications Medication Instructions Recorded Confirmed Last Taken aspirin 81 mg chewable tablet 81 mg PO HS 10/22/18 10/24/24 07/05/22 09:00 labetalol 200 mg tablet 200 mg PO HS 02/29/24 10/24/24 Unknown Walking Cane #1 ea 04/16/24 10/23/24 Unknown mirtazapine 15 mg tablet (Remeron) 15 mg PO UD PRN sleep 10/12/24 10/24/24 Unknown clopidogrel 75 mg tablet 75 mg PO HS 10/24/24 10/24/24 Unknown rosuvastatin 10 mg tablet 10 mg PO HS 10/24/24 10/24/24 Unknown Past Medical History Medical History (Updated 10/24/24 @ 15:12 by Melanie Ingram PA-C) AAA (abdominal aortic aneurysm) Incidental finding during 10/12/24 [facility] admission - 7.7cm per 09/2024 A/P CT Acute cholecystitis Admitted to [facility] 10/12/24-10/23/24; s/p cholecystostomy tube placed 10/14/24 Not a surgical candidate for cholecystectomy until AAA repaired CAD (coronary artery disease) 4 vessel CABG 2014 Carotid artery plaque hx, <50% carotid stenosis per 2021 carotid doppler Chronic kidney disease, stage 3 Family history of reaction to anesthesia dtr-N/V and shaking after recent hysterectomy History of COVID-19 03/2020. inpatient stay at [facility] for a couple days. did have covid pneumonia but limited details given by patient. denies any chronic problems since. History of hypertension Hx of hyperlipidemia Hx of sepsis d/c [facility] 10/16/24 "infection coming from gallbladder, finished abx tx 10/23/24" Mild cognitive impairment "forgetful, and in the early stages of dementia" per dtr Myocardial Infarction per dtr "her mom didn't have a heart attack, abnormal stress test in 2014" Pulmonary emphysema dtr denies "mother has no breathing problems" Pulmonary nodule, right monitoring? SDAT (senile dementia of Alzheimer's type) hx, per PCP report Seasonal allergies Past Family History Family History Brother Aortic aneurysm Hypertension Father Coronary heart disease Sister Hypertension Mother Diabetes Other No family history of adverse response to anesthesia Denies family history of Ovarian cancer Prostate cancer Breast cancer Colorectal cancer Past Surgical History Surgical History H/O insertion of cholecystostomy tube (10/14/24) [facility], pt d/c 10/16/[address] History of cardiac cath 2014 at [facility] --> transferred to [facility] History of cataract surgery bilateral History of dilatation and curettage ~1989 History of surgical removal of skin lesion (01/13/22) Excision of Skin Lesion on Back- Tae Lopez, , FACS 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, 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, saphenous growing graft to OM2, saphenous vein graft to RCA-January 2015, [facility] Social History Smoking Status: Former smoker tobacco type: cigarettes Smoking cigarettes per day: 20 Do You Dip or Chew Tobacco: No Smoking End Date: 50 years ago (smoked for 10 years) Hx Alcohol Use: No alcohol intake frequency: holidays/special occasions only Hx Substance Use: No substance use type: does not use Lab Results Anesthesia Preop Results Results Anesthesia Widget: WBC 5.73 K/ul (4.8-10.8) 10/16/24 Hgb 10.1 g/dl (12.0-16.0) L 10/16/24 Hct 31.2 % (37.0-47.0) L 10/16/24 Plt 250 K/uL (130-400) 10/16/24 Na 147 mmol/L (136-145) H 10/16/24 K 3.3 mmol/L (3.5-5.1) L 10/16/24 Cl 113 mmol/L (98-107) H 10/16/24 CO2 27 mmol/L (21-32) 10/16/24 BUN 7 mg/dl (6-23) 10/16/24 Creat 0.94 mg/dl (0.6-1.2) 10/16/24 Glucose Level 103 mg/dl (70-99(Fasting)) H 10/16/24 Urine Color Dark Yellow 10/12/24 Urine Appearance Cloudy (Clear) A 10/12/24 Urine pH 5.0 (4.5-7.5) 10/12/24 Urine Specific [place] > 1.045 (1.000-1.030) H 10/12/24 Urine Protein 2+ (Negative) H 10/12/24 Urine Glucose (UA) Negative (Negative) 10/12/24 Urine Ketones Trace (Negative) H 10/12/24 Urine Blood 1+ (Negative) H 10/12/24 Urine Nitrite Positive (Negative) A 10/12/24 Urine Bilirubin 2+ (Negative) H 10/12/24 Urine Urobilinogen Positive (Negative) H 10/12/24 Urine Leukocyte Esterase 1+ (Negative) H 10/12/24 Urine WBC (Auto) >50 /hpf (0-5) H 10/12/24 Urine RBC (Auto) 11-20 /hpf (0-2) H 10/12/24 Urine Hyaline Casts (Auto) 0-2 /lpf (0-2) 10/12/24 Urine Epithelial Cells (Auto) 11-20 /hpf (0-2) H 10/12/24 Urine Bacteria (Auto) 4+ (None Seen) H 10/12/24 Testing Laboratory Results Anemia- recheck CBC with diff stat DOS 10/12/24= URINE CULTURE: E coli >100,000 CFU/ml plus low counts of other mixed keisha. E coli #2 >100,000 CFU/ml (urine culture done during [facility] admission for sepsis due to acute cholecystitis- treated with abxs) Electrocardiogram Date: 10/12/24 SR with PACs and PVCs at 81bpm. Moderate voltage criteria for LVH, may be normal variant. Septal infarct, age undetermined. Inferior infarct (cited on or before Feb 02, 2015). When compared with EKG from July 05, 2022- PVCs are now present per cardio Chest X-Ray Date: 10/12/24 FINDINGS: Stable CABG. Stable cardiomegaly without pulmonary vascular congestion. There is mild aortic ectasia. There is no consolidation or pleural effusion. No pneumothorax. IMPRESSION: No acute findings Other Testing Abdomen/Pelvis CT 10/12/24= Findings consistent with early acute cholecystitis. Infrarenal abdominal aortic aneurysm (measuring 7.7 cm greatest AP dimension). There is mural thrombus within the aneurysm without significant aortic luminal narrowing. No other acute findings seen. Carotid doppler 05/26/21= <50% stenosis in the internal carotid arteries bilaterally. Antegrade flow to both vertebral arteries. No significant change compared with previous exam performed 12/13/2017.
[~2024-10-29 10:39] MED LIST changes: -ASPI81TA28 PO; -ATOR-22 PO; +DEXAMETHASONE SOD INJ 4 MG/ML VIAL ONE; +GLYCOPYRROLATE 0.2 MG/ML VIAL ONE; +HEPARIN SOD (PORCINE) 1000 UNIT/ML ONE; +LIDOCAINE 2% 2 ML VIAL/AMP(20MG/ML) INFIL ONE; -LISI-729 PO; -METO-452 PO; +MIDAZOLAM HCL 1 MG/ML 2ML VIAL ONE; +ONDANSETRON INJ 2 MG/ML 2 ML VIAL ONE; +PROPOFOL IV EMULSION 10 MG/ML 20 ML VIAL IV ONE; +PROTAMINE SULFATE 10 MG/ML 5 ML VIAL IV ONE; +ROCURONIUM BROMIDE 10 MG/ML 5 ML VIAL IV ONE; +SUGAMMADEX SODIUM 200 MG/2 ML VIAL IV ONE
[2024-10-29 10:57] LABS: Hematocrit (blood only) 36.9 % (37.0-47.0); Hemoglobin 11.7 g/dl (12.0-16.0); Immature Granulocytes # (auto) 0.02 K/uL (0.01-0.20); Immature Granulocytes % (auto) 0.2 %; Mean Corpuscular Hemoglobin 27.3 pg (25.0-34.0); Mean Corpuscular Volume 86.2 fL (80.0-100.0); Platelet Count 417 K/uL (130-400); RDW Standard Deviation 43.2 fL (36.4-46.3); Red Blood Count 4.28 M/uL (4.20-5.40); White Blood Count 8.08 K/ul (4.8-10.8)
[2024-10-29] MEDS: LACTATED RINGER'S 1,000 ML IV SCH (11:04)
--- NOTE | 2024-10-29 11:53 | History & Physical Report ---
Date of Service October 29, 2024 History of Present Illness Primary Care Provider: Alexander Salguero MD Reason for Consultation Abdominal aortic aneurysm History of Present Illness I had the pleasure of seeing Ely today for evaluation of her abdominal aortic aneurysm. As you know she is an 84-year-old female who was admitted with cholecystitis. She was found at that time to have a 7.9 cm infrarenal abdominal aortic aneurysm. She underwent to drainage of her gallbladder that point and has an indwelling catheter at this point of her gallbladder. She is totally asymptomatic from her aneurysm. She does have a history of hypertension. She did have a history of coronary artery bypass grafting and coronary artery disease. She denies any shortness of breath on exertion or chest pain. She denies any claudication. She denies any symptoms cerebrovascular insufficiency. Review of Systems 10 systems were reviewed. Positive findings included nausea loss of appetite and occasional nosebleeds. Rest of her positive findings and for her HPI. Physical Exam Vitals & Measurements HR: 77 (Monitored) BP: 114/66 SpO2: 95% Input and Output - Last 24 hours (Last 8 hours) No I/O Data Found: On exam she is awake alert and oriented x 3. She is in no apparent distress. Her blood pressure is 116/68 on the left and 114/68 on the right. Her radials and carotids are +2 bilaterally. No carotid bruits. Heart had a regular rate and rhythm. Lungs are clear. Abdominal exam shows no pulsatile mass midepigastrium. Femorals and pedal pulses are +1 bilaterally. Neurologic exam is grossly intact to motor and sensory function. She has good capillary refill in both feet. Diagnostic Results CT scan showed a 7.9 cm infrarenal abdominal aortic aneurysm and moderately stenotic common iliac artery origins. Assessment/Plan 1. AAA (abdominal aortic aneurysm) At this point went over the risks and benefits of aortic surgery versus endograft repair. Due to her cholecystostomy tube open repair as a relative contraindication. She is a candidate to undergo an endovascular repair. Her and her daughter understood the risks options and benefits and agreed to go ahead with endovascular repair of abdominal aortic aneurysm. Due to her heart history she will be seen by a meat counter worker prior to repair. Thank you very much for letting us participate in the care of this patient. Sincerely, Henok Faye MD Attestation I have personally spent __50___ minutes performing [id number] and [id number] activities on this date of service. Activities Include: __x review of the medical record __x obtaining a history __x physical exam/evaluation __ review labs __ xreview radiology reports _x_ counseling/educating patient/family/caregiver __ discussion/referral to other healthcare professional _x_ documenting care in the medical record __x independent interpretation of results ctat [facility] __ communication of results to patient/family/caregiver __ coordination of care Problem List/Past Medical History Ongoing AAA (abdominal aortic aneurysm) Medications Home aspirin(aspirin 81 mg oral delayed release tablet), 81 mg= 1 tab, PO, Daily clopidogrel(clopidogrel 75 mg oral tablet) labetalol(labetalol 200 mg oral tablet), 200 mg= 1 tab, PO, Daily rosuvastatin(rosuvastatin 10 mg oral tablet) Allergies NKA Signature Line Electronic Signature on File Christoph Faye MD Author Signature Dt/Tm: 10/24/2024 10:35 AM Critical Care Unit Nurse Zach Reyes [facility] [place], [address] [place] [address] EJS Result Type: .Outpt Ltr Date of Service: October 24, 2024 08:46 EDT Authorization Status: Final Subject: Consult Note Author or Import Date: MD Faye Eugene J on October 24, 2024 10:35 EDT Verified By: MD Faye Eugene J on October 24, 2024 10:35 EDT Encounter info: [id number], [place] [id number], Clinic, 10/24/2024 - 10/24/2024 Allergies Allergy/AdvReac Type Severity Reaction Status Date / Time donepezil AdvReac Mild Nausea Verified 10/29/24 10:44 Home Medications Medication Instructions Recorded Confirmed Type aspirin 81 mg chewable tablet 81 mg PO HS 10/22/18 10/29/24 History labetalol 200 mg tablet 200 mg PO HS 02/29/24 10/29/24 History Walking Cane #1 ea 04/16/24 10/23/24 Rx mirtazapine 15 mg tablet (Remeron) 15 mg PO UD PRN sleep 10/12/24 10/29/24 History clopidogrel 75 mg tablet 75 mg PO HS 10/24/24 10/29/24 History rosuvastatin 10 mg tablet 10 mg PO HS 10/24/24 10/29/24 History Past Med/Surg History Problem List Encounter for pre-operative examination Abdominal aortic aneurysm (AAA) Nausea & vomiting (Acute) Elevated lactic acid level (Acute) Osteoarthritis of right knee Pulmonary nodules SDAT (senile dementia of Alzheimer's type) Chronic kidney disease, stage 3a B12 deficiency SCC (squamous cell carcinoma) Pigmented skin lesion of uncertain nature Mild cognitive impairment alert and oriented x3 - "forgetful" Prediabetes Carotid artery plaque Pulmonary emphysema (Acute) pt unaware Hyperlipidemia (Acute) Arteriosclerosis of coronary artery (Acute) Hypertension (Chronic) Medical History CAD (coronary artery disease) 4 vessel CABG 2014 SDAT (senile dementia of Alzheimer's type) hx, per PCP report Pulmonary emphysema dtr denies "mother has no breathing problems" Carotid artery plaque hx, <50% carotid stenosis per 2021 carotid doppler Acute cholecystitis Admitted to [facility] 10/12/24-10/23/24; s/p cholecystostomy tube placed 10/14/24 Not a surgical candidate for cholecystectomy until AAA repaired Family history of reaction to anesthesia dtr-N/V and shaking after recent hysterectomy Hx of sepsis d/c [facility] 10/16/24 "infection coming from gallbladder, finished abx tx 10/23/24" Mild cognitive impairment "forgetful, and in the early stages of dementia" per dtr History of hypertension Hx of hyperlipidemia AAA (abdominal aortic aneurysm) Incidental finding during 10/12/24 [facility] admission - 7.7cm per 09/2024 A/P CT Myocardial Infarction per dtr "her mom didn't have a heart attack, abnormal stress test in 2014" History of COVID-19 03/2020. inpatient stay at [facility] for a couple days. did have covid pneumonia but limited details given by patient. denies any chronic problems since. Seasonal allergies Chronic kidney disease, stage 3 Pulmonary nodule, right monitoring? Surgical History H/O insertion of cholecystostomy tube (10/14/24) [facility], pt d/c 10/16/[address] History of surgical removal of skin lesion (01/13/22) Excision of Skin Lesion on Back- Tae Lopez, DO, FACS History of dilatation and curettage ~1989 History of cardiac cath 2014 at [facility] --> transferred to [facility] History of cataract surgery bilateral 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, 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, saphenous growing graft to OM2, saphenous vein graft to RCA-January 2015, [facility] Family History Brother Aortic aneurysm Hypertension Father Coronary heart disease Sister Hypertension Mother Diabetes Other No family history of adverse response to anesthesia Denies family history of Ovarian cancer Prostate cancer Breast cancer Colorectal cancer Social History Smoking Status: Former smoker Tobacco Type: Cigarettes and Declines Age Started Using Tobacco: 0; packs per day: 0; Cigarettes Per Day: 20; Smoking End Date: 50 years ago (smoked for 10 years); Second Hand Exposure: No; Do You Dip or Chew Tobacco: No; Tobacco Cessation Education Requested by Patient: No Hx Alcohol Use: No Hx Substance Use: No Preferred Language: Polish Communication Ability: Effective Visual Impairment: No Limitations Hearing Ability: Normal Food Scientist Required: No Beliefs That Will Affect Care: None marital status: Current Living Situation: Family Current Living Situation Comment: lives with daughter current occupational status: retired current occupation: Housework/cleaning How many Children do You have: 6 Other Information That Helps Us Care for You: No Feels Safe at Home: Yes Safety Concerns: Feels Safe At This Time Childhood Exposure to Second-Hand Smoke: No Diet: regular caffeine: No during the past year weight has: remained stable Dental Care, Regularly: No Physical Activity Frequency: Does not Exercise Seatbelt Use: always Sunscreen Use: No Assistive Devices: Cane, Denture - Upper, Denture - Lower and Glasses Results & Data Vital Signs (Past 12 Hours) Vital Signs Temp Pulse Resp BP Pulse Ox O2 Del Method 10/29/24 10:31 36.7 C 96 H 16 162/94 H 95 Room Air
--- NOTE | 2024-10-29 11:53 | History & Physical Bridge Note ---
Date of Service October 29, 2024 History & Physical Bridge Note I have examined the patient, reviewed the History & Physical and in the interval since the performance of the History & Physical I have noted the following changes of clinical significance: no changes noted
[2024-10-29] MEDS ORDERED: PROPOFOL IV EMULSION 10 MG/ML 20 ML VIAL IV ONE (14:34)
[2024-10-29] MEDS ORDERED: HEPARIN SOD (PORCINE) 1000 UNIT/ML ONE (14:45)
[2024-10-29] MEDS ORDERED: ROCURONIUM BROMIDE 10 MG/ML 5 ML VIAL IV ONE (16:33)
[2024-10-29] MEDS: VISIPAQUE IV PRN (17:01)
[2024-10-29] MEDS ORDERED: ceFAZolin 330 MG/ML 1 GM VIAL ONE (17:02)
[2024-10-29] MEDS: GELATIN SPONGE SZ 100 ONE (17:04)
[2024-10-29] MEDS: THROMBIN FOR SOLN 20000 UNIT KIT ONE (17:04)
[2024-10-29] MEDS: ceFAZolin 330 MG/ML 1 GM VIAL ONE (17:33)
[2024-10-29] MEDS: PAPAVERINE HCL INJ 30 MG/ML 2 ML VIAL ONE (17:34)
--- NOTE | 2024-10-29 17:57 | Procedure Note ---
Angiogram Post Procedure Fluoroscopy Time (minutes): 75.5 Radiation (mGy): 1,192 Contrast: 169 Post Operative Report Pre & Post Diagnosis Operation Date: 10/29/24 12:00 Pre-Op Diagnosis: Abdominal Aortic Aneurysm Post-Op Diagnosis: Abdominal Aortic Aneurysm I identified the patient and participated in the time-out.: Yes Procedure Operation Date: 10/29/24 12:00 Actual Procedures p Unilimb Endovascular Aortic Aneurysm Repair using Two Bifurcated endografts, Femoral To Femoral bypass right to left(Not Applicable) - Christoph Faye MD Surgeon Christoph Faye MD Operation Shift Supervisor Champ,PAC Estimated Blood Loss 250 Findings Consistent with Post-Op Diagnosis Specimens none Anesthesia Type General Complications none Disposition Accompanied Patient To Recovery: No Disposition: Recovery Room Indications This is an 84 yo female with a large AAA. Endovascular repair was recommended. I have discussed the risks options and benefits of the procedure with the patient. The patient understands the risks options and benefits and agrees to the procedure. Description of Procedure The patient was brought to the OR and placed in supine position. Patient was intubated and general anesthesia was accomplished. A safety timeout was performed to identify patient's name, date of and the correct procedure. Abdomen and groins were prepped and draped in sterile fashion. Ultrasound guided percutaneous access of the right groin was performed. The right common femoral artery was patent. A percutaneous puncture was made in the right common femoral artery using ultrasound. The depth finder for the Manta device was used to measure the depth of the puncture. The depth finder was removed and the 8 Wallisian sheath inserted. We turned our attention to the right side and we similarly accessed the left common femoral artery. The left common femoral artery was patent. Using ultrasound left common femoral artery was punctured. The depth finder was used to measure the depth of the puncture of the left side . This was removed and 8 Wallisian sheath was inserted. Patient was heparinized with IV heparin. Through the right groin, we advanced a soft Glidewire followed by a Kumpe catheter. The wire then was exchanged for a stiff Lorenzo wire. We then cannulated the aorta from the left side using 035 Glidewire and a Kumpe catheter. Once this was placed in the super renal aorta the wire was exchanged to a Lorenzo wire.. We then upsized our access on the right side with a 14 Wallisian dilator and subsequently to 18 Wallisian dry seal sheath. The left groin sheath was then exchanged to a 12 Wallisian dry seal sheath. The sheaths were advanced all the way up in the aortic sac. A marker pig was inserted to the left groin. Aortography was performed. The level of the renal arteries were marked on the screen. This showed patency of both renal arteries and a acceptable neck for deployment of the graft. We advanced the device ([place] excluder conformable 36 mm x 14.5 mm x 14 cm) through the right sheath. The shaft of the graft was then deployed. An aortogram was performed. Both renal arteries were visualized just above the top of the deployed graft. Aortogram confirmed good location of the proximal end of the graft. The hooks were then deployed. Cannulation of the gate was then attempted using an 035 glidewire and a Kumpke catheter.We could not cannulate the gate. We tried multiple attempts with the Kumpe catheter as well as a Woodward 1 catheter. We then marked the try to cannulate the gate by securing the wire in the opposite side. We therefore deployed the ipsilateral limb. Using the Kumpe and the wire we then cannulated what appeared to be the the gate. Both wires appeared to be in both the contra and C limbs.. The Kumpe catheter did spin in the neck of the graft. The 035 Glidewire was removed and a Lorenzo wire was reinserted. A marker pigtail was then inserted over the Loredo wire. The 12 Wallisian sheath was then pulled down into the external iliac and an arteriogram was performed of the left iliac s ystem. This identified the origin of the hypogastric and the left side. We then removed the pigtail. We reinserted a 12 Wallisian sheath dilator and advanced the sheath into the gate of the graft. We then inserted an 16mm x 12 mm x 12 contralateral limb. The 12 Wallisian sheath was then pulled down to below the level of the contralateral limb. Contralateral limb was then deployed without difficulty. There was a overlap noted between the limbs at that time. The 18 Wallisian sheath on the right side was then pulled down into the pelvis. Hand- injection was then performed to christopher where the bifurcation of the common iliac artery was. We then chose a 16 X12 X10 contralateral limb to extend the right side limb. The graft was advanced to the 18 Wallisian sheath. It was deployed with the distal end falling just above the iliac bifurcation. Upon deploying the graft it was noted that the contralateral and ipsilateral limbs were overlapping. We readjusted the C arm. At that point we noted that the gate was still patent with all the limb within it. We had inadvertently had deployed the contralateral limb and the ipsilateral extension into the same limb of the main body due to the overlap. Hand-injection was done to confirm the limbs were both in the same main body limb. We then attempted to place a wire between the ipsilateral limb and the arterial wall. The wire was able to be passed up into the limb of the main body. It could not be passed into the main body proper. We therefore inserted a 5 x 4 balloon and expanded it in the ipsilateral limb of the main body compressing the contralateral limb. Once this was done we were able to pass an 035 wire into the suprarenal aorta through the previously placed graft. We then inserted a 35 X 14.5 X 14 C3 main body. We returned to 180 degrees and deployed it to make the graft to the Uni limb device. This deployed without difficulty. We then inserted a Q50 balloon and expanded the proximal attachment site so will be overlapped between the previously placed graft and the graft. Pigtail was then inserted and completion angiogram was performed. This showed a type I leak proximally. We then reinserted a Lorenzo wire and put a 35 x 4.5 comformable proximal aortic cuff. This was then expanded with a Q50 balloon. Another arteriogram was performed there is still a small endoleak seen. This was considered to be between the [address]. We therefore started another 36 x 4.5 proximal cuff and were overlapped and slightly lower than the previous cuff down to the level of the flow divider. Then reinserted the pigtail. At this point there was no evidence of any further endoleak. There is good flow through the graft. We then proceeded to go ahead with performing a femorofemoral bypass due to the placement of the graft. An incsion was then made in both groins exposing both common femoral, superficial femoral and profunda femoral arteries. The left femoral artery was clamped proximally and distally and the sheath removed. An 8mm ringed propatan graft was passed from the right to left groin. An arteriotomy was made in the common femoral artery was done. Mild plaque was noted. The gaft was then trimmed and belveled the appropriate fashion and an end to side anastomosis was accomplished using 5-0prolene suture in the usual vascular fashion. Prior to completion, backbleeding and forward bleeding was allowed to occur. The anastomosis was then flushed with heparinized saline and the anastomosis completed. A clamp was placed on the graft and the clamps on the femoral artery were released. The right femoral artery was clamped proximally and distally and the sheath removed. An arteriotomy was made in the common femoral artery was done. Mild plaque was noted. The gaft was then trimmed and belveled the appropriate fashion and an end to side anastomosis was accomplished using 5-0prolene suture in the usual vascular fashion. Prior to completion, backbleeding and forward bleeding was allowed to occur. The anastomosis was then flushed with heparinized saline and the anastomosis completed. Clamps were then removed. Good flow was seen in both femoral arteries. Adequate hemostasis was seen of the anastomoses. After adequate hemostasis was noted the wounds were closed in the usual fashion with 2-0 vicryl for the femoral sheath and 3-0 vicryl for the subcutaneous tissue in both groins. Perris were used on both skin incisions. Sterile dressing were applied to the wound. The patient left the operation room in satisfactory condition and tolerated the procedure well. All needle and sponge counts were correct at the end of the procedure. Vicky Bolanos Pac assisted due to lack of resident availability and was ang martinez for positioning, draping, retraction, wound closure deep layers, subcutaneous tissue, and skin closure and was necessary for assisting with the case. I attest to the content of the Intraoperative Record and any orders documented therein. Any exceptions are noted below.
[2024-10-29] MEDS ORDERED: ONDANSETRON INJ 2 MG/ML 2 ML VIAL IV PRN (18:32)
[2024-10-29] MEDS ORDERED: ATROPINE SULFATE 0.1 MG/ML 10ML SYR IV PRN (18:32)
[2024-10-29 19:06] LABS: Hematocrit (blood only) 30.5 % (37.0-47.0); Hemoglobin 9.6 g/dl (12.0-16.0)
--- NOTE | 2024-10-29 19:08 | Anesthesiology Progress Note ---
Date of Service October 29, 2024 Anesthesia Post Procedure Vital Signs Vital Signs: Temp Pulse Pulse Resp BP BP BP 10/29/24 19:05 76 16 150/65 H 165/52 H 10/29/24 18:55 70 12 160/71 H 177/87 H 10/29/24 18:45 73 20 162/72 H 171/58 H 10/29/24 18:35 76 24 148/69 H 173/57 H 10/29/24 18:25 36.6 C 77 20 142/64 H 164/54 H 10/29/24 18:15 73 14 163/70 H 177/56 H 10/29/24 18:05 72 14 167/67 H 174/56 H 10/29/24 17:57 36.6 C 72 14 162/71 H 10/29/24 10:31 36.7 C 96 H 16 162/94 H Pulse Ox O2 Del Method O2 Flow Rate 10/29/24 19:05 96 Nasal Cannula 2 10/29/24 18:55 96 Nasal Cannula 2 10/29/24 18:45 94 Room Air 10/29/24 18:35 96 Room Air 10/29/24 18:25 94 Room Air 10/29/24 18:15 97 Oxymask 3 10/29/24 18:05 97 Oxymask 3 10/29/24 17:57 96 Oxymask 6 10/29/24 10:31 95 Room Air Transfer of Care Handoff Completed per policy Notes Mental Status: alert / awake / arousable Patient Amnestic to Procedure: Yes Nausea / Vomiting: adequately controlled Pain: adequately controlled Airway Patency, RR, SpO2: stable & adequate BP & HR: stable & adequate Hydration State: stable & adequate Anesthetic Complications: no major complications apparent and Pt Satisfied with anesthetic care
--- NOTE | 2024-10-29 19:37 | Critical Care Consultation ---
Date of Consultation October 29, 2024 Assessment & Plan (1) Abdominal aortic aneurysm (AAA): (2) Prediabetes: (3) Hyperlipidemia: (4) Hypertension: Plan Reason Critically Ill: 84 YOF to ICU s/p AAA PVAR repair with fem/fem access and two bifurcated endografts. To ICU for postoperative hemodynamic and neurovascular monitoring. Neuro - Acute pain, Hx: Dementia CAM ICU: ISSA - Patient drowsy post anesthesia but awakens easily and follows commands. Improving - Pain control as ordered by primary surgical team Cardiac - PVAR for AAA, Hx HTN, HLD, CAD with 4v CBG(2014) - PVAR bilateral femoral access with bifurcated endografts for repair- wound vac dressing in place bilaterally with good seal and no drainage - follow peripheral vascular and neurovascular exam of lower extremities - she is without chest pain and/or abdominal pain - movment of lower extremities and sensation is intact - BP goal < 180 unless otherwise determined by vascular surgery - Antiplatelet medications per vascular surgery - Continue oral Labetalol at night - Postoperative HGB 9.6 GENERAL OPERATIONS MANAGER reported to surgeon Respiratory - No acute needs - Wean oxygen as able- ICS while awake GI - No acute needs - Advance diet as tolerated RENAL/LYTES - CKD - No acute needs at thist time- follow daily renal function - follow urine output for perfusion - No acute needs - Ambrosio to gravity draining yaakov colored urine ENDO - No acute needs - ICU hyperglycemic protocol goal <180mg/dl HEME - Blood loss anemia - follow HGB levels- transfusion as directed by surgery team, unless active hemorrhage ID - NO concern at this time for infective process - post op abx per surgery team LINES/IV ACCESS - PIV, Arterial line, ambrosio Continue use of these lines DVT PROPHYLAXIS - SCDS, ASA, Plavix, DISPO: ICU post opertive until hemodynamics and neurovascular exam proven stable I have personally spent 35 minutes of care time in the direct management of this patient. This is a life/limb threatening event. This includes time spent evaluating patient, direct bedside care, chart review, placing orders, interpretation of diagnostic studies, discussion with consultants, patient, and family members, as well as other required patient management activities. This time is exclusive of all separately billable procedures, and separate from and in addition to any other critical care service time. Thank you for allowing us to participate in the care of this patient. Please refer to my attending physician's documentation for any further recommendations. History of Present Illness Reason for Consultation: post operative monitoring s/p PVAR with two bifurcated endografts Requesting Physician: Christoph Faye Attending Physician: Christoph Faye MD History of Present Illness 84 YOF with medical history of: Cholecystitis s/p biliary drain in place, AAA, CAD (2014 4v cabg), CKD IIIa, HTN, Dementia, OA, HLD. Patient was admitted to hospital for repair of AAA with Dr. Borden on 10/29/24. She is now to the ICU postoperatively. She has undergone PVAR with bilateral fem/fem access and two bifurcated endografts for repair. Patient is drowsy but awakens to name, she is on NC with SPo2 92 RR 25 non labored, Arterial line in place with adequate wave form, monitor reveals 80s NSR no ectopy. Ambrosio to gravity draining yaakov urine. She is currently not on vasopressors. patient able to converse weakly. She has sensation in bilateral lower extremities with warm feet and dopplerable PT. patient will be followed in ICU for hemodynamics, neurovascular checks, following of organ perfusion and HGB levels. CODE: FULL Allergies Allergy/AdvReac Type Severity Reaction Status Date / Time donepezil AdvReac Mild Nausea Verified 10/29/24 10:44 Home Medications Medication Instructions Recorded Confirmed Type aspirin 81 mg chewable tablet 81 mg PO HS 10/22/18 10/29/24 History labetalol 200 mg tablet 200 mg PO HS 02/29/24 10/29/24 History Walking Cane #1 ea 04/16/24 10/23/24 Rx mirtazapine 15 mg tablet (Remeron) 15 mg PO UD PRN sleep 10/12/24 10/29/24 History clopidogrel 75 mg tablet 75 mg PO HS 10/24/24 10/29/24 History rosuvastatin 10 mg tablet 10 mg PO HS 10/24/24 10/29/24 History Patient History Medical History CAD (coronary artery disease) 4 vessel CABG 2014 SDAT (senile dementia of Alzheimer's type) hx, per PCP report Pulmonary emphysema dtr denies "mother has no breathing problems" Carotid artery plaque hx, <50% carotid stenosis per 2021 carotid doppler Acute cholecystitis Admitted to [facility] 10/12/24-10/23/24; s/p cholecystostomy tube placed 10/14/24 Not a surgical candidate for cholecystectomy until AAA repaired Family history of reaction to anesthesia dtr-N/V and shaking after recent hysterectomy Hx of sepsis d/c [facility] 10/16/24 "infection coming from gallbladder, finished abx tx 10/23/24" Mild cognitive impairment "forgetful, and in the early stages of dementia" per dtr History of hypertension Hx of hyperlipidemia AAA (abdominal aortic aneurysm) Incidental finding during 10/12/24 [facility] admission - 7.7cm per 09/2024 A/P CT Myocardial Infarction per dtr "her mom didn't have a heart attack, abnormal stress test in 2014" History of COVID-19 03/2020. inpatient stay at [facility] for a couple days. did have covid pneumonia but limited details given by patient. denies any chronic problems since. Seasonal allergies Chronic kidney disease, stage 3 Pulmonary nodule, right monitoring? Surgical History H/O insertion of cholecystostomy tube (10/14/24) [facility], pt d/c 10/16/[address] History of surgical removal of skin lesion (01/13/22) Excision of Skin Lesion on Back- Tae Lopez, , FACS History of dilatation and curettage ~1989 History of cardiac cath 2014 at [facility] --> transferred to [facility] History of cataract surgery bilateral 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, 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, saphenous growing graft to OM2, saphenous vein graft to RCA-January 2015, [facility] Family History Brother Aortic aneurysm Hypertension Father Coronary heart disease Sister Hypertension Mother Diabetes Other No family history of adverse response to anesthesia Denies family history of Ovarian cancer Prostate cancer Breast cancer Colorectal cancer Social History Smoking Status: Former smoker Tobacco Type: Cigarettes and Declines Age Started Using Tobacco: 0; packs per day: 0; Cigarettes Per Day: 20; Smoking End Date: 50 years ago; Second Hand Exposure: No; Do You Dip or Chew Tobacco: No; Tobacco Cessation Education Requested by Patient: No Hx Alcohol Use: No Hx Substance Use: No Preferred Language: Gibralt[place] Communication Ability: Effective Visual Impairment: No Limitations Hearing Ability: Normal Clay Miller Required: No Beliefs That Will Affect Care: None marital status: Current Living Situation: Family Current Living Situation Comment: lives with daughter current occupational status: retired current occupation: Housework/cleaning How many Children do You have: 6 Other Information That Helps Us Care for You: No Feels Safe at Home: Yes Safety Concerns: Feels Safe At This Time Childhood Exposure to Second-Hand Smoke: No Diet: regular caffeine: No during the past year weight has: remained stable Dental Care, Regularly: No Physical Activity Frequency: Does not Exercise Seatbelt Use: always Sunscreen Use: No Assistive Devices: Cane, Denture - Upper, Denture - Lower and Glasses Review of Systems Review of Systems: REVIEW OF SYSTEMS: unable to perform secondary to drowsiness post anesthesia. Physical Exam Physical Exam: PHYSICAL EXAM: General: awakens to voice, drowsily Head: Normocephalic, atraumatic Neuro: AAO x 2, speech clear, strength intact bilaterally 5/5, sensation intact and equal all extremities and dermatomes, no pronator drift Chest: equal rise and fall of the chest, no accessory muscle use, no heaves or thrills, Clear to auscultation, on 2LNC, Cardiac: Regular rate and rhythm, telemetry reviewed- NSR no ectopy, skin warm dry, cap refill <3 seconds, peripheral pulses DP dopplerable, 1+, bilateral femoral access sites small wound vac no drainage GI: NABS x 4 quadrants, soft, nontender to palpation, biliary perc drain in place draining bile : Ambrosio to gravity, Psych: Normal mood and affect Skin: no rash or erythema Results & Data Results & Data Vital Signs (Past 12 Hours) Vital Signs Temp Pulse Pulse Resp BP BP BP 10/29/24 19:05 76 16 150/65 H 165/52 H 10/29/24 18:55 70 12 160/71 H 177/87 H 10/29/24 18:45 73 20 162/72 H 171/58 H 10/29/24 18:35 76 24 148/69 H 173/57 H 10/29/24 18:25 36.6 C 77 20 142/64 H 164/54 H 10/29/24 18:15 73 14 163/70 H 177/56 H 10/29/24 18:05 72 14 167/67 H 174/56 H 10/29/24 17:57 36.6 C 72 14 162/71 H 10/29/24 10:31 36.7 C 96 H 16 162/94 H Pulse Ox O2 Del Method O2 Flow Rate 10/29/24 19:05 96 Nasal Cannula 2 10/29/24 18:55 96 Nasal Cannula 2 10/29/24 18:45 94 Room Air 10/29/24 18:35 96 Room Air 10/29/24 18:25 94 Room Air 10/29/24 18:15 97 Oxymask 3 10/29/24 18:05 97 Oxymask 3 10/29/24 17:57 96 Oxymask 6 10/29/24 10:31 95 Room Air Laboratory Results Abnormal lab results 10/29/24 10/29/24 Range/Units 10:33 18:18 Hgb 11.7 L 9.6 L (12.0-16.0) g/dl Hct 36.9 L 30.5 L (37.0-47.0) % MCHC 31.7 L (32.0-36.0) g/dL Plt Count 417 H (130-400) K/uL Bell # (Auto) 0.70 H (0.11-0.59) K/uL Crossmatch See Detail Medications Administered Discontinued Medications Cefazolin Sodium (Cefazolin 330 Mg/Ml 1 Gm Vial) Confirm Administered Dose 990 mg .ROUTE .STK-MED ONE Stop: 10/29/24 16:07 Last Admin: 10/29/24 17:33 Dose: 990 mg Documented By: DAYA Fentanyl Citrate (Fentanyl Citrate Pf 100 Mcg/2 Ml Vial) 25 mcg IV Q5M PRN PRN Reason: PACU Use Only-Pain Stop: 10/30/24 02:32 Last Admin: 10/29/24 18:50 Dose: 25 mcg Documented By: [facility] Admin: 10/29/24 18:45 Dose: 25 mcg Documented By: [facility] Admin: 10/29/24 18:40 Dose: 25 mcg Documented By: [facility] Admin: 10/29/24 18:35 Dose: 25 mcg Documented By: [facility] Fentanyl Citrate (Fentanyl Citrate Pf 100 Mcg/2 Ml Vial) Confirm Administered Dose 100 mcg .ROUTE .STK-MED ONE Stop: 10/29/24 18:34 Last Admin: 10/29/24 18:52 Dose: Not Given Documented By: RONIT Gelatin (Gelatin Sponge Sz 100) Confirm Administered Dose 2 each .ROUTE .STK-MED ONE Stop: 10/29/24 16:07 Last Admin: 10/29/24 17:04 Dose: 2 each Documented By: DAYA Heparin Sodium/Sodium Chloride (Heparin In Nss Infusion 1000 Unit/500 Ml (2 U/Ml) Bag) Confirm Administered Dose 2,000 units IV .STK-MED ONE Stop: 10/29/24 12:28 Last Admin: 10/29/24 17:05 Dose: 400 units Documented By: DAYA Heparin Sodium/Sodium Chloride (Heparin In Nss Infusion 1000 Unit/500 Ml (2 U/Ml) Bag) Confirm Administered Dose 1,000 units IV .STK-MED ONE Stop: 10/29/24 15:16 Last Admin: 10/29/24 17:06 Dose: Not Given Documented By: FAVIO Heparin Sodium/Sodium Chloride (Heparin In Nss Infusion 1000 Unit/500 Ml (2 U/Ml) Bag) Confirm Administered Dose 1,000 units IV .STK-MED ONE Stop: 10/29/24 16:20 Last Admin: 10/29/24 17:34 Dose: 40 units Documented By: DAYA Hydralazine HCl (Hydralazine Hcl 20 Mg/Ml Vial) Confirm Administered Dose 20 mg .ROUTE .STK-MED ONE Stop: 10/29/24 18:49 Last Admin: 10/29/24 18:53 Dose: Not Given Documented By: RONIT Hydralazine HCl (Hydralazine Hcl 20 Mg/Ml Vial) 10 mg IV NOW STA Stop: 10/29/24 18:48 Last Admin: 10/29/24 18:50 Dose: 10 mg Documented By: RONIT Lactated Ringer's (Lr) 1,000 mls @ 50 mls/hr IV .Q20H LEMUEL Stop: 10/30/24 01:59 Last Infusion: 10/29/24 12:42 Dose: Infused Documented By: Admin: 10/29/24 11:04 Dose: 50 mls/hr Documented By: JEFFREY Cefazolin Sodium (Ancef 2000mg) 2,000 mg in 15 mls @ 7.5 mls/min IV PREOP LEMUEL; Protocol Stop: 10/29/24 18:00 Last Admin: 10/29/24 12:45 Dose: 7.5 mls/min Documented By: [id number] Cefazolin Sodium (Ancef 2000mg) 2,000 mg in 15 mls @ 3.75 mls/min IV ONCE ONE Stop: 10/29/24 17:05 Last Admin: 10/29/24 17:00 Dose: 3.75 mls/min Documented By: [id number] Iodixanol (Visipaque) 100 ml IV UD PRN PRN Reason: Interaction Checking Stop: 11/02/24 12:49 Last Admin: 10/29/24 17:01 Dose: 169 ml Documented By: DAYA Papaverine HCl (Papaverine Hcl Inj 30 Mg/Ml 2 Ml Vial) Confirm Administered Dose 30 mg .ROUTE .STK-MED ONE Stop: 10/29/24 16:07 Last Admin: 10/29/24 17:34 Dose: Not Given Documented By: FAVIO Thrombin (Thrombin For Soln 30231 Unit Kit) Confirm Administered Dose 40,000 units .ROUTE .STK-MED ONE Stop: 10/29/24 16:07 Last Admin: 10/29/24 17:04 Dose: 40,000 units Documented By: DAYA Coding Level of Care Code 67305 IN/OBS CONSULT LVL 2,35M Diagnoses Abdominal aortic aneurysm (AAA) I71.40 Prediabetes R73.03 Pure hypercholesterolemia E78.00 Hyperlipidemia type: pure hypercholesterolemia Primary hypertension I10 Hypertension type: primary hypertension (3) Hyperlipidemia Hyperlipidemia type: pure hypercholesterolemia Qualified Code(s): E78.00 - Pure hypercholesterolemia, unspecified (4) Hypertension Hypertension type: primary hypertension Qualified Code(s): I10 - Essential (primary) hypertension
[2024-10-29] MEDS ORDERED: MIRTAZAPINE TAB 15 MG TAB PO PRN (19:43)
[2024-10-29] MEDS: ASPIRIN 81 MG CHEW PO SCH (20:09)
[2024-10-29] MEDS: D5W AND 1/2NSS 1,000 ML IV SCH (20:09)
[2024-10-29] MEDS: ROSUVASTATIN CALCIUM 10 MG TAB PO SCH (20:16)
[2024-10-29] MEDS: LABETALOL HCL 200 MG TAB PO SCH (20:16)
[2024-10-29] MEDS: MoRPHine SULFATE 4 MG/ML 1 ML CARP\\VIAL IV PRN (20:31)
[2024-10-29] MEDS: SODIUM CHLORIDE 0.9% 1,000 ML IV SCH (20:57)
[2024-10-29] MEDS ORDERED: CARBOHYDRATES FOR HYPOGLYCEMIA PO PRN (20:58)
[2024-10-29] MEDS ORDERED: GLUCOSE 40% GEL 15 GM TUBE PO PRN (20:58)
[2024-10-29] MEDS ORDERED: GLUCOSE 10 TAB/TUBE PO PRN (20:58)
[2024-10-29] MEDS ORDERED: DEXTROSE 50% 50 ML SYRINGE IV PRN (20:58)
[2024-10-29] MEDS ORDERED: GLUCAGON FOR INJ 1 MG VIAL SQ PRN (20:58)
[2024-10-29] MEDS: INSULIN ASPART PER UNIT CHARGE SC SCH (21:32)
[2024-10-30] MEDS: ONDANSETRON INJ 2 MG/ML 2 ML VIAL IV PRN (02:50)
[2024-10-30 04:31] LABS: Hematocrit (blood only) 27.5 % (37.0-47.0); Hemoglobin 8.6 g/dl (12.0-16.0); Immature Granulocytes # (auto) 0.04 K/uL (0.01-0.20); Immature Granulocytes % (auto) 0.4 %; Mean Corpuscular Hemoglobin 27.1 pg (25.0-34.0); Mean Corpuscular Volume 86.8 fL (80.0-100.0); Platelet Count 266 K/uL (130-400); RDW Standard Deviation 44.5 fL (36.4-46.3); Red Blood Count 3.17 M/uL (4.20-5.40); White Blood Count 10.63 K/ul (4.8-10.8)
[2024-10-30 04:48] LABS: Anion Gap 7.0 (3-11); Blood Urea Nitrogen 21.0 mg/dl (6-23); Calcium 7.8 mg/dl (8.6-10.3); Carbon Dioxide 23.0 mmol/L (21-32); Chloride 110.0 mmol/L (98-107); Creatinine Clr Calc Pharmacy 31.8 ml/min; Glucose 127.0 mg/dl (70-99(Fasting)); Potassium 4.6 mmol/L (3.5-5.1); Sodium 140.0 mmol/L (136-145)
[2024-10-30] MEDS ORDERED: SODIUM CHLORIDE 0.9% 100 ML IV PRN (06:10)
[2024-10-30] MEDS: METOCLOPRAMIDE HCL INJ 5 MG/ML 2 ML VIAL IV ONE (06:18)
--- NOTE | 2024-10-30 08:05 | Critical Care Progress Note ---
Date of Service October 30, 2024 Assessment & Plan (1) Abdominal aortic aneurysm (AAA): (2) Prediabetes: (3) Hyperlipidemia: (4) Hypertension: Plan Reason Critically Ill: 84 YOF to ICU s/p AAA PVAR repair with fem/fem access and two bifurcated endografts. To ICU for postoperative hemodynamic and neurovascular monitoring. Neuro - Acute pain, Hx: Dementia - Pain control as ordered by primary surgical team Cardiac - PVAR for AAA, Hx HTN, HLD, CAD with 4v CBG(2014) Continue frequent BP checks and neurovascular bundle checks. Labetalol per vascular surgery. Continue statin and aspirin. Patient on home Plavix which was not currently being given in the hospital will defer dual antiplatelets to the vascular surgery team. Respiratory - No acute needs - Wean oxygen as able- ICS while awake GI - No acute needs - Advance diet as tolerated RENAL/LYTES - CKD - No acute needs at this time- follow daily renal function - follow urine output for perfusion - No acute needs - Ambrosio to gravity draining yaakov colored urine ENDO - No acute needs - ICU hyperglycemic protocol goal <180mg/dl HEME - Blood loss anemia - follow HGB levels- transfusion as directed by surgery team, unless active hemorrhage ID - NO concern at this time for infective process - post op abx per surgery team LINES/IV ACCESS - PIV, Arterial line, ambrosio Continue use of these lines DVT PROPHYLAXIS - SCDS, DISPO: ICU post operative until hemodynamics and neurovascular exam proven st able Admission and Anticipated Discharge Date Admission Date: October 29, 2024 Subjective Patient has some bouts of emesis overnight. Hemodynamically otherwise she is stable. Denies any significant abdominal pain. Review of Systems Review of Systems: All systems reviewed & are unremarkable except as noted in HPI & below Physical Exam Physical Exam: PHYSICAL EXAM: General: awakens to voice, drowsily Head: Normocephalic, atraumatic Neuro: AAO x 2, speech clear, strength intact bilaterally 5/5, sensation intact and equal all extremities and dermatomes, no pronator drift Chest: equal rise and fall of the chest, no accessory muscle use, no heaves or thrills, Clear to auscultation, on 2LNC, Cardiac: Regular rate and rhythm, telemetry reviewed- NSR no ectopy, skin warm dry, cap refill <3 seconds, peripheral pulses DP dopplerable, 1+, bilateral femoral access sites small wound vac no drainage GI: NABS x 4 quadrants, soft, nontender to palpation, biliary perc drain in place draining bile : Ambrosio to gravity, Psych: Normal mood and affect Skin: no rash or erythema Results & Data Results & Data Vital Signs (Past 12 Hours) Vital Signs Temp Pulse Resp BP Pulse Ox O2 Flow Rate 10/30/24 07:07 36.6 C 64 14 120/57 L 99 2 10/30/24 06:52 36.5 C 67 15 127/46 L 99 2 10/30/24 06:35 36.5 C 66 12 144/53 H 99 10/30/24 06:00 67 14 10/30/24 05:48 74 14 98 10/30/24 05:45 143/67 H 10/30/24 05:45 143/67 H 10/30/24 05:45 143/67 H 10/30/24 05:45 143/67 H 10/30/24 05:33 67 14 99 10/30/24 05:30 118/47 L 10/30/24 05:30 65 14 98 10/30/24 05:00 110/51 L 10/30/24 05:00 110/51 L 10/30/24 04:48 67 12 99 10/30/24 04:45 116/50 L 10/30/24 04:45 116/50 L 10/30/24 04:39 66 12 97 10/30/24 04:36 66 13 99 10/30/24 04:00 67 15 97 10/30/24 04:00 36.7 C 10/30/24 03:45 67 12 98 10/30/24 03:45 106/46 L 10/30/24 03:30 68 12 10/30/24 03:18 67 12 98 10/30/24 03:15 107/51 L 10/30/24 03:15 107/51 L 10/30/24 03:15 107/51 L 10/30/24 03:12 65 12 98 10/30/24 03:03 67 12 98 10/30/24 03:00 118/54 L 10/30/24 03:00 118/54 L 10/30/24 02:48 71 18 98 10/30/24 02:45 155/77 H 10/30/24 02:39 66 15 99 10/30/24 02:36 69 16 99 10/30/24 02:30 119/55 L 10/30/24 02:27 67 12 99 10/30/24 02:21 69 12 98 10/30/24 02:15 117/54 L 10/30/24 02:03 68 12 99 10/30/24 02:00 69 18 10/30/24 02:00 115/53 L 10/30/24 02:00 115/53 L 10/30/24 02:00 115/53 L 10/30/24 01:51 69 18 99 10/30/24 01:45 111/52 L 10/30/24 01:45 111/52 L 10/30/24 01:27 69 15 98 10/30/24 01:24 69 13 98 10/30/24 01:03 69 12 98 10/30/24 01:00 108/53 L 10/30/24 01:00 108/53 L 10/30/24 00:45 115/51 L 10/30/24 00:45 115/51 L 10/30/24 00:42 67 12 98 10/30/24 00:39 66 12 99 10/30/24 00:30 115/52 L 10/30/24 00:30 115/52 L 10/30/24 00:27 69 21 98 10/30/24 00:24 71 21 98 10/30/24 00:15 108/55 L 10/30/24 00:12 71 17 98 10/30/24 00:00 114/55 L 10/30/24 00:00 114/55 L 10/30/24 00:00 68 19 98 10/30/24 00:00 69 10/30/24 00:00 36.8 C 10/29/24 23:57 69 14 99 10/29/24 23:30 69 12 98 10/29/24 23:30 124/60 10/29/24 23:15 71 20 98 10/29/24 23:00 127/58 L 10/29/24 23:00 127/58 L 10/29/24 22:45 126/60 10/29/24 22:45 126/60 10/29/24 22:43 36.8 C 10/29/24 22:39 74 23 99 10/29/24 22:30 135/63 10/29/24 22:27 75 14 98 10/29/24 22:24 74 19 98 10/29/24 22:00 140/62 10/29/24 22:00 140/62 10/29/24 22:00 74 13 98 10/29/24 21:43 36.8 C 10/29/24 21:30 143/63 H 10/29/24 21:30 143/63 H 10/29/24 21:30 143/63 H 10/29/24 21:30 72 14 98 10/29/24 21:15 151/70 H 10/29/24 21:15 151/70 H 10/29/24 21:09 74 14 98 10/29/24 21:03 78 24 98 10/29/24 21:00 131/67 10/29/24 21:00 131/67 10/29/24 20:54 78 24 98 10/29/24 20:45 139/66 10/29/24 20:43 36.7 C 10/29/24 20:30 131/65 10/29/24 20:30 131/65 10/29/24 20:15 121/57 L 10/29/24 20:15 79 29 H 98 10/29/24 20:09 82 31 H 98 Coding Level of Care Code 13308 SUB INP/OBS CARE MIN Diagnoses Abdominal aortic aneurysm (AAA) I71.40 Prediabetes R73.03 Pure hypercholesterolemia E78.00 Hyperlipidemia type: pure hypercholesterolemia Primary hypertension I10 Hypertension type: primary hypertension (3) Hyperlipidemia Hyperlipidemia type: pure hypercholesterolemia Qualified Code(s): E78.00 - Pure hypercholesterolemia, unspecified (4) Hypertension Hypertension type: primary hypertension Qualified Code(s): I10 - Essential (primary) hypertension
--- NOTE | 2024-10-30 13:32 | Surgery Progress Note ---
Date of Service October 30, 2024 Assessment & Plan (1) Status post endovascular aneurysm repair (EVAR): Plan: Pt POD #1 after evar with R Nitza fem fem BPG, doing well post op. VSS, having mild nausea and fatigue. Discussed with Dr Faye, will transfer to md/surg. (2) Acute blood loss as cause of postoperative anemia: Plan: Pt with hgb 8 today, transfused 1U PRBC. Remains stable. Will follow H&H Admission and Anticipated Discharge Date Admission Date: October 29, 2024 Subjective 84 yo f POD #1 after endovascular AAA repair with R to L fem fem BPG, seen in f/u today. Pt states feeling very tired and somewhat nauseated. Mild pain in BL groins. No CP, SOB, dizzness, other complaints. Review of Systems Review of Systems: All systems reviewed & are unremarkable except as noted in HPI & below Physical Exam Constitutional: WD/WN, vitals as above cooperative and comfortable; not in distress Respiratory: normal respiratory effort, lungs clear to auscultation Auscultation: + diminished lung sounds Cardiovascular: Rate/Rhythm: regular rate and regular rhythm Vessels: posterior tibial pulses present (RLE +1, LLE no doppler) and dorsalis pedis pulses present (RLE +1, LLE dopplerable); + abnormal peripheral pulses Extremities: normal capillary refill; no edema Gastrointestinal (Abdomen): Inspection/Auscultation: abdomen normal to inspection and normal bowel sounds Percussion/Palpation: abdomen soft; abdomen nontender Musculoskeletal: no cyanosis or clubbing, extremities motor strength 5/5 Skin: no rashes, warm and dry + incision (BL groins prevena vac intact, tissue soft) Neurologic: moves all extremities and awake; no focal motor deficits and not confused Psychiatric: A+Ox3, euthymic affect Results & Data Vital Signs (Past 12 Hours) Vital Signs Temp Pulse Resp BP Pulse Ox O2 Del Method O2 Flow Rate 10/30/24 12:45 147/50 H 10/30/24 12:45 147/50 H 10/30/24 12:45 64 15 99 Nasal Cannula 2 10/30/24 12:42 66 18 98 Nasal Cannula 2 10/30/24 12:30 125/53 L 10/30/24 12:18 75 21 100 Nasal Cannula 2 10/30/24 12:16 146/60 H 10/30/24 12:00 135/68 10/30/24 11:54 66 20 98 Nasal Cannula 2 10/30/24 11:45 137/55 L 10/30/24 11:45 67 24 10/30/24 11:36 70 18 98 Nasal Cannula 2 10/30/24 11:30 126/55 L 10/30/24 11:27 67 20 99 Nasal Cannula 2 10/30/24 11:15 67 13 98 Nasal Cannula 2 10/30/24 11:15 143/62 H 10/30/24 11:00 65 17 98 Nasal Cannula 2 10/30/24 11:00 126/54 L 10/30/24 10:45 134/53 L 10/30/24 10:42 65 14 99 Nasal Cannula 10/30/24 10:30 64 14 10/30/24 10:30 127/53 L 10/30/24 10:15 126/59 L 10/30/24 10:12 63 14 99 Nasal Cannula 2 10/30/24 10:06 65 15 99 Nasal Cannula 2 10/30/24 09:45 132/60 10/30/24 09:36 67 15 99 Nasal Cannula 2 10/30/24 09:30 66 15 96 Nasal Cannula 2 10/30/24 09:30 133/56 L 10/30/24 09:15 134/50 L 10/30/24 09:15 134/50 L 10/30/24 09:09 64 14 98 Nasal Cannula 2 10/30/24 09:00 66 18 97 Nasal Cannula 2 10/30/24 09:00 134/55 L 10/30/24 08:45 133/51 L 10/30/24 08:39 63 12 99 Nasal Cannula 2 10/30/24 08:36 64 99 Nasal Cannula 2 10/30/24 08:15 132/48 L 10/30/24 08:15 65 13 99 Nasal Cannula 2 10/30/24 08:03 68 18 99 Nasal Cannula 2 10/30/24 08:00 66 10/30/24 08:00 121/57 L 10/30/24 07:45 129/79 10/30/24 07:30 120/57 L 10/30/24 07:27 66 12 99 Nasal Cannula 2 10/30/24 07:15 108/49 L 10/30/24 07:12 65 99 Nasal Cannula 2 10/30/24 07:07 36.6 C 64 14 120/57 L 99 2 10/30/24 07:00 115/49 L 10/30/24 06:52 36.5 C 67 15 127/46 L 99 2 10/30/24 06:51 67 11 L 98 Nasal Cannula 2 10/30/24 06:45 113/51 L 10/30/24 06:45 67 13 10/30/24 06:35 36.5 C 66 12 144/53 H 99 10/30/24 06:30 119/47 L 10/30/24 06:30 67 12 10/30/24 06:15 118/49 L 10/30/24 06:09 70 21 94 Nasal Cannula 2 10/30/24 06:00 111/48 L 10/30/24 06:00 67 14 10/30/24 05:48 74 14 98 10/30/24 05:45 143/67 H 10/30/24 05:45 143/67 H 10/30/24 05:45 143/67 H 10/30/24 05:45 143/67 H 10/30/24 05:33 67 14 99 10/30/24 05:30 118/47 L 10/30/24 05:30 65 14 98 10/30/24 05:00 110/51 L 10/30/24 05:00 110/51 L 10/30/24 04:48 67 12 99 10/30/24 04:45 116/50 L 10/30/24 04:45 116/50 L 10/30/24 04:39 66 12 97 10/30/24 04:36 66 13 99 10/30/24 04:00 67 15 97 10/30/24 04:00 36.7 C 10/30/24 03:45 67 12 98 10/30/24 03:45 106/46 L 10/30/24 03:30 68 12 10/30/24 03:18 67 12 98 10/30/24 03:15 107/51 L 10/30/24 03:15 107/51 L 10/30/24 03:15 107/51 L 10/30/24 03:12 65 12 98 10/30/24 03:03 67 12 98 10/30/24 03:00 118/54 L 10/30/24 03:00 118/54 L 10/30/24 02:48 71 18 98 10/30/24 02:45 155/77 H 10/30/24 02:39 66 15 99 10/30/24 02:36 69 16 99 10/30/24 02:30 119/55 L 10/30/24 02:27 67 12 99 10/30/24 02:21 69 12 98 10/30/24 02:15 117/54 L 10/30/24 02:03 68 12 99 10/30/24 02:00 69 18 10/30/24 02:00 115/53 L 10/30/24 02:00 115/53 L 10/30/24 02:00 115/53 L 10/30/24 01:51 69 18 99 10/30/24 01:45 111/52 L 10/30/24 01:45 111/52 L 10/30/24 01:27 69 15 98
[2024-10-31 06:27] LABS: Hematocrit (blood only) 29.5 % (37.0-47.0); Hemoglobin 9.5 g/dl (12.0-16.0); Immature Granulocytes # (auto) 0.02 K/uL (0.01-0.20); Immature Granulocytes % (auto) 0.2 %; Mean Corpuscular Hemoglobin 27.9 pg (25.0-34.0); Mean Corpuscular Volume 86.8 fL (80.0-100.0); Platelet Count 213 K/uL (130-400); RDW Standard Deviation 45.1 fL (36.4-46.3); Red Blood Count 3.40 M/uL (4.20-5.40); White Blood Count 8.06 K/ul (4.8-10.8)
[2024-10-31 06:41] LABS: Anion Gap 6.0 (3-11); Blood Urea Nitrogen 20.0 mg/dl (6-23); Calcium 8.0 mg/dl (8.6-10.3); Carbon Dioxide 24.0 mmol/L (21-32); Chloride 110.0 mmol/L (98-107); Creatinine Clr Calc Pharmacy 38.8 ml/min; Glucose 106.0 mg/dl (70-99(Fasting)); Potassium 4.3 mmol/L (3.5-5.1); Sodium 140.0 mmol/L (136-145)
--- NOTE | 2024-10-31 14:20 | Surgery Progress Note ---
Date of Service October 31, 2024 Assessment & Plan (1) Status post endovascular aneurysm repair (EVAR): Plan: Pt POD #2 Doing well She does have family help at home May d/c tomorrow (2) Acute blood loss as cause of postoperative anemia: Plan: Pt with hgb 9.5 post transfusion. No post op bleeding Admission and Anticipated Discharge Date Admission Date: October 29, 2024 Subjective Patient with mild incisional pain. No foot pain Physical Exam Constitutional: WD/WN, vitals as above Respiratory: normal respiratory effort; no respiratory distress Cardiovascular: Extremities: normal capillary refill distal pulses to doppler Skin: + incision (prevena in place) Neurologic: CN's II-XI intact bilaterally and moves all extremities Psychiatric: A+Ox3, euthymic affect Results & Data Vital Signs (Past 12 Hours) Vital Signs Temp Pulse Resp BP Pulse Ox O2 Del Method 10/31/24 12:02 79 18 146/76 H 96 Room Air 10/31/24 07:49 Room Air 10/31/24 07:32 36.5 C 72 16 158/68 H 94 Room Air 10/31/24 04:28 130/57 L 95 Room Air
[2024-11-01 06:42] LABS: Hematocrit (blood only) 29.2 % (37.0-47.0); Hemoglobin 9.6 g/dl (12.0-16.0); Immature Granulocytes # (auto) 0.04 K/uL (0.01-0.20); Immature Granulocytes % (auto) 0.5 %; Mean Corpuscular Hemoglobin 28.8 pg (25.0-34.0); Mean Corpuscular Volume 87.7 fL (80.0-100.0); Platelet Count 177 K/uL (130-400); RDW Standard Deviation 45.9 fL (36.4-46.3); Red Blood Count 3.33 M/uL (4.20-5.40); White Blood Count 7.48 K/ul (4.8-10.8)
[2024-11-01 06:58] LABS: Anion Gap 3.0 (3-11); Blood Urea Nitrogen 14.0 mg/dl (6-23); Calcium 8.3 mg/dl (8.6-10.3); Carbon Dioxide 28.0 mmol/L (21-32); Chloride 111.0 mmol/L (98-107); Creatinine Clr Calc Pharmacy 44.6 ml/min; Glucose 102.0 mg/dl (70-99(Fasting)); Potassium 4.3 mmol/L (3.5-5.1); Sodium 142.0 mmol/L (136-145)
[2024-11-01 07:29] VITALS: BP 158/68; PULSE 72; RESP 18; TEMP 97.7; O2SAT 94
--- NOTE | 2024-11-01 11:41 | Surgery Progress Note ---
Date of Service November 01, 2024 Assessment & Plan (1) Status post endovascular aneurysm repair (EVAR): Plan: Pt POD #3 Doing well She does have family help at home to help her D\C today Admission and Anticipated Discharge Date Admission Date: October 29, 2024 Subjective Patient with mild incisional pain. No foot pain. She is ambulating Physical Exam Constitutional: WD/WN, vitals as above Respiratory: normal respiratory effort; no respiratory distress Cardiovascular: Extremities: normal capillary refill good pedal dopplers Skin: + incision (prevena in place) Neurologic: CN's II-XI intact bilaterally and moves all extremities Psychiatric: A+Ox3, euthymic affect Results & Data Vital Signs (Past 12 Hours) Vital Signs Temp Pulse Resp BP Pulse Ox O2 Del Method 11/01/24 07:28 36.5 C 72 18 158/68 H 94 Room Air
--- NOTE | 2024-11-01 11:47 | Discharge Summary ---
Date of Service November 01, 2024 Admission HPI Per Admitting Provider Reason for Consultation Abdominal aortic aneurysm History of Present Illness I had the pleasure of seeing Ely today for evaluation of her abdominal aortic aneurysm. As you know she is an 84-year-old female who was admitted with cholecystitis. She was found at that time to have a 7.9 cm infrarenal abdominal aortic aneurysm. She underwent to drainage of her gallbladder that point and has an indwelling catheter at this point of her gallbladder. She is totally asymptomatic from her aneurysm. She does have a history of hypertension. She did have a history of coronary artery bypass grafting and coronary artery disease. She denies any shortness of breath on exertion or chest pain. She denies any claudication. She denies any symptoms cerebrovascular insufficiency. Review of Systems 10 systems were reviewed. Positive findings included nausea loss of appetite and occasional nosebleeds. Rest of her positive findings and for her HPI. Physical Exam Vitals & Measurements HR: 77 (Monitored) BP: 114/66 SpO2: 95% Input and Output - Last 24 hours (Last 8 hours) No I/O Data Found: On exam she is awake alert and oriented x 3. She is in no apparent distress. Her blood pressure is 116/68 on the left and 114/68 on the right. Her radials and carotids are +2 bilaterally. No carotid bruits. Heart had a regular rate and rhythm. Lungs are clear. Abdominal exam shows no pulsatile mass midepigastrium. Femorals and pedal pulses are +1 bilaterally. Neurologic exam is grossly intact to motor and sensory function. She has good capillary refill in both feet. Diagnostic Results CT scan showed a 7.9 cm infrarenal abdominal aortic aneurysm and moderately stenotic common iliac artery origins. Assessment/Plan 1. AAA (abdominal aortic aneurysm) At this point went over the risks and benefits of aortic surgery versus endograft repair. Due to her cholecystostomy tube open repair as a relative contraindication. She is a candidate to undergo an endovascular repair. Her and her daughter understood the risks options and benefits and agreed to go ahead with endovascular repair of abdominal aortic aneurysm. Due to her heart history she will be seen by a shot polisher prior to repair. Thank you very much for letting us participate in the care of this patient. Sincerely, Henok Faye MD Attestation I have personally spent __50___ minutes performing [id number] and [id number] activities on this date of service. Activities Include: __x review of the medical record __x obtaining a history __x physical exam/evaluation __ review labs __ xreview radiology reports _x_ counseling/educating patient/family/caregiver __ discussion/referral to other healthcare professional _x_ documenting care in the medical record __x independent interpretation of results ctat [facility] __ communication of results to patient/family/caregiver __ coordination of care Problem List/Past Medical History Ongoing AAA (abdominal aortic aneurysm) Medications Home aspirin(aspirin 81 mg oral delayed release tablet), 81 mg= 1 tab, PO, Daily clopidogrel(clopidogrel 75 mg oral tablet) labetalol(labetalol 200 mg oral tablet), 200 mg= 1 tab, PO, Daily rosuvastatin(rosuvastatin 10 mg oral tablet) Allergies NKA Signature Line Electronic Signature on File Christoph Faye MD Author Signature Dt/Tm: 10/24/2024 10:35 AM International Project Manager Zach Reyes [facility] [place], [address] [place], [place] [id number] Result Type: .Outpt Ltr Date of Service: October 24, 2024 08:46 EDT Authorization Status: Final Subject: Consult Note Author or Import Date: MD Faye Eugene J on October 24, 2024 10:35 EDT Verified By: MD Faye Eugene J on October 24, 2024 10:35 EDT Encounter info: [id number], [place] [id number], [facility], 10/24/2024 - 10/24/2024 Admission Exam Per Admitting Provider On exam she is awake alert and oriented x 3. She is in no apparent distress. Her blood pressure is 116/68 on the left and 114/68 on the right. Her radials and carotids are +2 bilaterally. No carotid bruits. Heart had a regular rate and rhythm. Lungs are clear. Abdominal exam shows no pulsatile mass midepigastrium. Femorals and pedal pulses are +1 bilaterally. Neurologic exam is grossly intact to motor and sensory function. She has good capillary refill in both feet. Principal Diagnosis Abdominal aortic aneurysm Discharge Exam Constitutional WD/WN, vitals as above Respiratory normal respiratory effort; no respiratory distress Cardiovascular Extremities: normal capillary refill Skin + incision (prevena in place) Neurologic CN's II-XI intact bilaterally and moves all extremities Psychiatric A+Ox3, euthymic affect Discharge Data Allergies Allergy/AdvReac Type Severity Reaction Status Date / Time donepezil AdvReac Mild Nausea Verified 10/29/24 10:44 Procedures Performed Operation Date: 10/29/24 12:00 Actual Procedures p Endovascular Aortic Aneurysm Repair, Two Bifurcated endografts, Femoral To Femoral bypass(Not Applicable) - Christoph Faye MD Ordered Studies 10/29/24 07:12 EV aorto bi iliac repair Routine US EV guide vascular access Routine Hospital Course (1) Status post endovascular aneurysm repair (EVAR): Pt POD #3 Doing well She does have family help at home to help her D\C today Total Time Total Time Spent Total Time Spent (In Minutes): x Discharge Plan Discharge Items Patient Disposition: Home - Self-Care Reason For Visit: Abdominal Aortic Aneurysm Discharge Diagnosis: Abdominal aortic aneurysm Activity: Per Instructions section Non-emergency contact: Surgeon Call non-emergency contact if: your temperature is above 101.5, your wound has increased redness, your wound has increased drainage and your wound pain has increased Follow-up/Referrals: Alexander Salguero MD [Primary Care Provider] - Diet: Heart Healthy Add Attending Provider Instructions: SPECIAL CARE INSTRUCTIONS: Diet: * You may return to previous diet. Medications: * Continue to take your medications as directed. Incision/Puncture Site Care: * Once the prevana dressings puff up, you may remove the dressings and dispose of them and shower - allowing the warm soapy water to run over it. * Be sure to dry the sites well and keep them dry. * DO NOT SOAK IN A TUB/POOL/etc. UNTIL ALL SURGICAL SITES ARE HEALED. Restrictions: * Limit yourself to metalworking instructor activity for the first week. * You may walk and go up and down steps. * Avoid excessive bending or movement at the level of the incisions or punctures. Risks and Possible Complications: * Infection/Drainage/Bleeding - Drainage or bleeding from the incisions/puncture site should be minimal. If you have excessive bleeding or drainage, call our office ([phone]) right away. * Pain/Numbness - You may experience some mild pain or soreness at your incision sites. You may also have some numbness around the incisions or into the insides of your thighs. Bruising is normal and should resolve within 2 weeks. * Changes in Appetite or Bowel Habits - Mostly related to anesthesia and pain medication, some patients have reported decreased appetite and/or problems with constipation. These symptoms usually improve over a few weeks. Remembering to take an ifso-gxd-[id number] stool softener, as directed, will help you to avoid constipation. Call our office and seek emergent treatment if you develop: * Fever or chills * Have a temperature greater than 101 degrees F * Any redness or purulent drainage from your incisions or punctures * Severe abdominal, chest or back pain SKIN IRRITATION: * You may experience some redness and/or swelling in the area where radiation was administered. If any skin irritation occurs, please contact your family physician. You will be receiving a call from the Vascular Surgery Nurse after you are d ischarged. FOLLOW UP VISIT: It is important for you to keep your follow up appointments with your medical provider. Keep any scheduled doctor appointments. Call [phone] to schedule a follow up appointment if one not already scheduled. Stand-Alone Forms: My [facility] [employer], Smoking Cessation Medications and DC Order Prescriptions: New oxycodone-acetaminophen [Percocet] 5-325 mg Tablet 1 tab PO Q4H PRN (Reason: pain) Qty: 30 0RF Continued labetalol 200 mg tablet 200 mg PO HS Rx Instructions: original:200mg po daily 10/12-last filled 03/02/24 90 day supply #90 aspirin 81 mg tablet,chewable 81 mg PO HS Rx Instructions: 10/12-otc unable to verify (DME) Walking Cane Misc See Rx Instructions .MEDSUPPLY Qty: 1 0RF Rx Instructions: As directed mirtazapine [Remeron] 15 mg tablet 15 mg PO UD PRN (Reason: sleep) Rx Instructions: original:15mg po hs.1/2 tablet orally at bedtime PRN; 10/12-no fill history unable to verify clopidogrel 75 mg tablet 75 mg PO HS Patient Comments: pt states has not taken meds for 2 weeks Rx Instructions: Last filled 10/03/24 90 day supply rosuvastatin 10 mg tablet 10 mg PO HS Discharge Orders: Discharge Order (Routine); Ordered 11/01/24 Ordered By: Christoph Faye Admission Data Admit Date/Time: 10/29/24 11:53 Attending Provider: Christoph Faye Admit Provider: Christoph Faye Primary Care Provider: Alexander Salguero
== END 2024-11-01 13:23 | disposition home or self-care (01) | DRG 269 ==
LOC: ASU 10:39 → 1E 11:53 → 3N 10-30 18:58

== ENCOUNTER 2025-03-31 11:11 | Inpatient (IN) ==
[2025-03-31] MEDS: SODIUM CHLORIDE 0.9% 1,000 ML IV ONE ×2 (11:40→12:38)
[2025-03-31] MEDS: ONDANSETRON INJ 2 MG/ML 2 ML VIAL IV STA (11:40)
[2025-03-31 11:57] LABS: Hematocrit (blood only) 34.4 % (37.0-47.0); Hemoglobin 11.3 g/dL (12.0-16.0); Immature Granulocytes # (auto) 0.05 K/uL (0.01-0.20); Immature Granulocytes % (auto) 0.4 %; Mean Corpuscular Hemoglobin 28.8 pg (25.0-34.0); Mean Corpuscular Volume 87.8 fL (80.0-100.0); Platelet Count 225 K/uL (130-400); RDW Standard Deviation 47.4 fL (36.4-46.3); Red Blood Count 3.92 M/uL (4.20-5.40); White Blood Count 12.94 K/ul (4.8-10.8)
--- NOTE | 2025-03-31 12:08 | Emergency Department Note ---
Impression & Plan Nausea & vomiting, Elevated lactic acid level, Sepsis, Leukocytosis, Elevated troponin, JUNE (acute kidney injury), Elevated procalcitonin, Post op infection ED Provider Note HISTORY OF PRESENT ILLNESS: Patient is an 85-year-old female presenting with nausea and vomiting. Patient had a cholecystectomy performed 4 days ago. She was doing well up until last night when she started to feel generally unwell. She reports she had chills last night. Woke up this morning and took one of her pain medications but shortly after that started to profusely vomit. She has not had a bowel movement since surgery, but has been passing flatus. Denies any fevers. Denies any chest pain or shortness of breath. Reports poor oral intake today secondary to feeling so nauseous. ROS: as above PHYSICAL EXAM: Constitutional: Patient appears in no acute distress. HENT: Head: Normocephalic and atraumatic. Eyes: EOMI, PERRL Mouth/Throat: Mucous membranes dry. Neck: Trachea midline. Neck supple. Cardiovascular: Tachycardic with regular rhythm. No murmurs, rubs or gallops. Intact distal pulses. Pulmonary/Chest: No respiratory distress. Breath sounds clear and equal bilaterally. No wheezes or rales. Abdominal: Abdomen soft, no rebound or guarding. Diffusely tender to palpation Musculoskeletal: No edema, tenderness or deformity noted. Skin: Warm and dry. No rash, erythema, pallor or cyanosis Psychiatric: Appropriate mood and affect for situation. Neurological: Alert and keenly responsive. CN II-XII grossly intact, moving all extremities equally and fully. MDM: - Vitals signs showed hypotension and tachycardia. - History obtained via patient. History as above. - Chronic conditions affecting care: HTN; CAD (s/p CABG); HLD; dementia; CKD - Differential diagnoses include, but are not limited to: Postop abscess; ACS; dehydration; electrolyte abnormality; pneumonia - Order placed for continuous cardiac monitoring. At this time, monitor showed rate of 99 bpm with normal sinus rhythm, per my interpretation. - External medical records reviewed. Operative report dated 03/2025 was reviewed. Patient had a laparoscopic cholecystectomy secondary to chronic cholecystitis. - EKG image interpreted by myself showed normal sinus rhythm. Rate tachycardic at 106 bpm. QT 360. No acute ischemic changes. Noted to have some nonspecific ST changes in her lateral leads, notably V5 and V6. - Laboratory workup interpreted by myself showed leukocytosis (WBC 12.94) with neutrophil predominance; normal PT/INR; stable electrolytes; JUNE (Cr 1.89); elevated anion gap (13); elevated total bilirubin (1.3); elevated troponin (320.8); normal AST/ALT; elevated lactate (3.7); elevated procalcitonin (10.40) - Patient given a total of 2L NS in ER with improvement in tachycardia and hypotension. Patient sepsis fluid volume calculation based on actual body weight is 1923.00 mL. - Given 4 mg IV zofran for nausea on arrival. - Blood cultures obtained - IV zosyn administered - CT abdomen/pelvis with IV contrast showed moderate pneumoperitoneum likely postsurgical. Noted to have a small amount of pneumomediastinum adjacent to the distal esophagus. Did have several operative bed fluid collections with the lateral most collection likely being a small hematoma. - Discussed case with [facility]YSON with general surgery, Anamaria Matos PA-C, at 14:21. Requested patient to inpatient medicine service with IV antibiotics and general surgery will follow as a consult. - Discussion was had with senior case manager about patient's case and need for admission - Hospitalist consulted for admission - [facility] ASSESSMENT AND PLAN: Diagnosis: sepsis; leukocytosis; elevated troponin; JUNE; elevated procalcitonin; elevated lactic acid level; post op infection; nausea and vomiting Plan: admit Past Med/Surg History Problem List Post op infection (Acute) Elevated procalcitonin (Acute) JUNE (acute kidney injury) (Acute) Elevated troponin (Acute) Leukocytosis (Acute) Sepsis (Acute) Elevated lactic acid level (Acute) Nausea & vomiting (Acute) Encounter for pre-operative examination Chronic cholecystitis H/O insertion of cholecystostomy tube (10/14/24) [facility], pt d/c 10/16/[address] Nausea & vomiting (Acute) Elevated lactic acid level (Acute) Osteoarthritis of right knee Pulmonary nodules SDAT (senile dementia of Alzheimer's type) Chronic kidney disease, stage 3a B12 deficiency SCC (squamous cell carcinoma) Pigmented skin lesion of uncertain nature Mild cognitive impairment alert and oriented x3 - "forgetful" Carotid artery plaque Pulmonary emphysema (Acute) pt unaware Hyperlipidemia (Acute) Arteriosclerosis of coronary artery (Acute) Hypertension (Chronic) Medical History PAD (peripheral artery disease) Right to left femorofemoral bypass (done at same time as EVAR 10/29/24) Abdominal aortic aneurysm (AAA) 7.9 cm s/p EVAR with two bifurcated endograft and a right to left femorofemoral bypass 10/29/24 Prediabetes CAD (coronary artery disease) 4 vessel CABG 2014 SDAT (senile dementia of Alzheimer's type) per daughter "not really that bad" Pulmonary emphysema dtr denies "mother has no breathing problems" Carotid artery plaque hx, <50% carotid stenosis per 2021 carotid doppler Acute cholecystitis Admitted to [facility] 10/12/24-10/23/24; s/p cholecystostomy tube placed 10/14/24>still intact on 03/18/25 Not a surgical candidate for cholecystectomy until AAA repaired Hx of sepsis d/c [facility] 10/16/24 "infection coming from gallbladder, finished abx tx 10/23/24" Mild cognitive impairment "forgetful, and in the early stages of dementia" per dtr History of hypertension Hx of hyperlipidemia Myocardial Infarction per dtr "her mom didn't have a heart attack, abnormal stress test in 2014" Seasonal allergies Chronic kidney disease, stage 3 Pulmonary nodule, right monitoring? Surgical History Hx laparoscopic cholecystectomy (03/27/25) Laparoscopic Cholecystectomy with Removal of Her Percutaneous Cholecystectomy Tube - Kirk Fernandes DO History of tooth extraction History of cataract surgery right/left Status post endovascular aneurysm repair (EVAR) (10/29/24) Unilimb Endovascular Aortic Aneurysm Repair using Two Bifurcated endografts, Femoral To Femoral bypass right to left - Christoph Faye MD History of postoperative nausea and vomiting Family history of reaction to anesthesia dtr-N/V and shaking after hysterectomy History of surgical removal of skin lesion (01/13/22) Excision of Skin Lesion on Back- Tae Lopez DO, FACS History of dilatation and curettage ~1989 History of cardiac cath 2014 at [facility] --> transferred to [facility] History of cataract surgery right/left 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, 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, saphenous growing graft to OM2, saphenous vein graft to RCA-January 2015, [facility] Family History Brother Aortic aneurysm Hypertension Father Coronary heart disease Sister Hypertension Mother Diabetes Other No family history of adverse response to anesthesia Denies family history of Ovarian cancer Prostate cancer Breast cancer Colorectal cancer Social History Smoking Status: Former smoker Tobacco Type: Cigarettes Age Started Using Tobacco: 0; packs per day: 0; Cigarettes Per Day: 20; Second Hand Exposure: No; Do You Dip or Chew Tobacco: No; Hx Alcohol Use: No Hx Substance Use: No Preferred Language: Azeri Communication Ability: Impaired Communication Ability Comment: daughter>Natty is healthcare POA and will sign OR consent (dementia) Visual Impairment: No Limitations Hearing Ability: Normal Radiology Director Required: No Beliefs That Will Affect Care: None marital status: / Current Living Situation: Family Current Living Situation Comment: lives with daughter>Natty (cares for mother/other daughter assists) current occupational status: retired current occupation: Housework/cleaning How many Children do You have: 5 Feels Safe at Home: Yes Childhood Exposure to Second-Hand Smoke: No Diet: regular caffeine: No during the past year weight has: decreased > 10 lbs Dental Care, Regularly: No Physical Activity Frequency: Does not Exercise Seatbelt Use: always Sunscreen Use: No Assistive Devices: Cane, Denture - Upper, Denture - Lower and Glasses Allergies Allergies Allergy/AdvReac Type Severity Reaction Status Date / Time donepezil AdvReac Mild Nausea Verified 03/27/25 08:32 Home Meds Home Medications Medication Instructions Recorded Confirmed aspirin 81 mg chewable tablet 81 mg PO HS 10/22/18 03/31/25 clopidogrel 75 mg tablet 75 mg PO DAILY 03/18/25 03/31/25 losartan 25 mg tablet 25 mg PO DAILY 03/18/25 03/31/25 metoprolol succinate 25 mg 25 mg PO QAM 03/18/25 03/31/25 tablet,extended release 24 hr mirtazapine 15 mg tablet 15 mg PO HS PRN Sleep 03/27/25 03/31/25 Previous Rx's Medication Instructions Recorded Walking Cane #1 ea 04/16/24 rosuvastatin 10 mg tablet 10 mg PO HS #90 tabs 03/25/25 oxycodone 5 mg tablet 5 mg PO Q6H PRN pain #15 tabs 03/27/25 ondansetron 4 mg disintegrating 4 mg PO Q8H PRN nausea and 03/31/25 tablet vomiting 4 days #12 tabs Results & Data (ED) Vital Signs Vital Signs - 24 hr 03/31/25 11:18 03/31/25 12:00 03/31/25 12:08 Temperature 37 C Temperature Source Temporal Artery Scan Pulse Rate 128 H 94 H 99 H Pulse Rate [Apical] Respiratory Rate 20 31 H Respiratory Effort / Characteristics Non-Labored Spontaneous Respiratory Depth Normal Respiratory Pattern Regular Blood Pressure 98/62 L 121/66 Blood Pressure [Left Arm] Blood Pressure Mean 74 93 Blood Pressure Mean [Left Arm] Pulse Oximetry 95 95 Oxygen Delivery Method Room Air Room Air Sepsis Recent Fever Within 48 Hours No Sepsis New/Unexplained Change in Mental Status No Sepsis Action Taken by Nursing Physician Notified 03/31/25 12:30 03/31/25 13:00 03/31/25 13:30 Temperature Temperature Source Pulse Rate 97 H 113 H Pulse Rate [Apical] 96 H Respiratory Rate 19 19 18 Respiratory Effort / Characteristics Respiratory Depth Respiratory Pattern Blood Pressure 109/60 122/63 Blood Pressure [Left Arm] 129/68 Blood Pressure Mean 87 99 Blood Pressure Mean [Left Arm] 88 Pulse Oximetry 92 93 92 Oxygen Delivery Method Room Air Room Air Room Air Sepsis Recent Fever Within 48 Hours Sepsis New/Unexplained Change in Mental Status Sepsis Action Taken by Nursing 03/31/25 13:30 03/31/25 13:30 03/31/25 14:00 Temperature Temperature Source Pulse Rate 103 H 99 H Pulse Rate [Apical] Respiratory Rate 24 26 H Respiratory Effort / Characteristics Respiratory Depth Respiratory Pattern Blood Pressure 129/68 122/70 Blood Pressure [Left Arm] Blood Pressure Mean 106 89 Blood Pressure Mean [Left Arm] Pulse Oximetry 92 92 93 Oxygen Delivery Method Room Air Room Air Room Air Sepsis Recent Fever Within 48 Hours Sepsis New/Unexplained Change in Mental Status Sepsis Action Taken by Nursing 03/31/25 15:00 Temperature Temperature Source Pulse Rate 101 H Pulse Rate [Apical] Respiratory Rate 24 Respiratory Effort / Characteristics Respiratory Depth Respiratory Pattern Blood Pressure 115/61 Blood Pressure [Left Arm] Blood Pressure Mean 84 Blood Pressure Mean [Left Arm] Pulse Oximetry 92 Oxygen Delivery Method Sepsis Recent Fever Within 48 Hours Sepsis New/Unexplained Change in Mental Status Sepsis Action Taken by Nursing Laboratory Data 03/31/25 11:35 03/31/25 11:35 Lab Results 03/31/25 03/31/25 03/31/25 Range/Units 11:35 11:53 13:48 WBC 12.94 H (4.8-10.8) K/ul RBC 3.92 L (4.20-5.40) M/uL Hgb 11.3 L (12.0-16.0) g/dL Hct 34.4 L (37.0-47.0) % MCV 87.8 (80.0-100.0) fL MCH 28.8 (25.0-34.0) pg MCHC 32.8 (32.0-36.0) g/dL RDW Std Deviation 47.4 H (36.4-46.3) fL RDW Coeff of Lea 14.8 H (11.5-14.5) % Plt Count 225 (130-400) K/uL MPV 10.4 (9.4-12.4) fL Immature Gran % (Auto) 0.4 % Neut % (Auto) 85.2 % Lymph % (Auto) 5.2 % Chase % (Auto) 8.1 % Eos % (Auto) 0.9 % Baso % (Auto) 0.2 % Neut # (Auto) 11.02 H (1.40-6.50) K/uL Lymph # (Auto) 0.67 L (1.20-3.40) K/uL Chase # (Auto) 1.05 H (0.11-0.59) K/uL Eos # (Auto) 0.12 (0.00-0.50) K/uL Baso # (Auto) 0.03 (0.00-0.20) K/uL Immature Gran # (Auto) 0.05 (0.01-0.20) K/uL PT 12.0 (9.0-12.0) Seconds INR 1.1 (0.9-1.1) Sodium 141 (136-145) mmol/L Potassium 3.7 (3.5-5.1) mmol/L Chloride 105 (98-107) mmol/L Carbon Dioxide 23 (21-32) mmol/L Anion Gap 13 H (3-11) BUN 29 H (6-23) mg/dl Creatinine 1.89 H (0.6-1.2) mg/dl Est Cr Clr Drug Dosing Not Reportable eGFR 25.88 BUN/Creatinine Ratio 15.3 (10-20) Glucose 140 H (70-99(Fasting)) mg/dl Lactate 3.7 H* (0.4-2.0) mmol/L Calcium 9.3 (8.6-10.3) mg/dl Total Bilirubin 1.3 H (0.2-1.0) mg/dl AST 21 (13-39) U/L ALT 25 (7-52) U/L Alkaline Phosphatase 86 (34-104) U/L Troponin I High Sens 320.8 H* 867.4 H* D (0-14) pg/ml Total Protein 6.5 (6.0-8.3) gm/dl Albumin 3.7 (3.4-5.0) gm/dl Globulin 2.8 (2.5-4.0) gm/dl Albumin/Globulin Ratio 1.3 (0.9-2) Lipase 6 L (11-82) U/L Procalcitonin 10.40 H (0-0.5) ng/ml Administered Medications Discontinued Medications Sodium Chloride (Nss) 1,000 mls @ 999 mls/hr IV .Q1H1M ONE Stop: 03/31/25 12:30 Last Infusion: 03/31/25 12:39 Dose: Infused Documented By: Admin: 03/31/25 11:40 Dose: 999 mls/hr Documented By: CHELSEA Piperacillin Sod/Tazobactam Sod (Zosyn) 4.5 gm in 100 mls @ 200 mls/hr IV NOW ONE; Protocol Stop: 03/31/25 12:49 Last Infusion: 03/31/25 15:09 Dose: Infused Documented By: Admin: 03/31/25 13:48 Dose: 200 mls/hr Documented By: JERARDO Sodium Chloride (Nss) 1,000 mls @ 999 mls/hr IV .Q1H1M ONE Stop: 03/31/25 13:20 Last Infusion: 03/31/25 13:42 Dose: Infused Documented By: Admin: 03/31/25 12:38 Dose: 999 mls/hr Documented By: CHELSEA Ioversol (Optiray 320 100ml) 94 ml IV ONCE ONE Stop: 03/31/25 12:46 Last Admin: 03/31/25 12:46 Dose: 94 ml Documented By: ELIEZER Ondansetron HCl (Ondansetron Inj 2 Mg/Ml 2 Ml Vial) 4 mg IV NOW STA Stop: 03/31/25 11:31 Last Admin: 03/31/25 11:40 Dose: 4 mg Documented By: CHELSEA Imaging Data Radiologist's Impression: Abdomen/Pelvis CT 03/31/25 12:02 CT SCAN OF THE ABDOMEN AND PELVIS WITH IV CONTRAST CLINICAL HISTORY: Abdominal pain and vomiting. Recent surgery. COMPARISON STUDY: CTA of the abdomen and pelvis January 02, 2025. TECHNIQUE: Following the IV administration of 94 cc of Optiray 320, CT scan of the abdomen and pelvis is performed from the lung bases to the proximal femora. Images are reviewed in the axial, sagittal, and coronal planes. IV contrast was administered without complication. A dose lowering technique was utilized adhering to the principles of ALARA. CT DOSE: 496.51 mGy.cm FINDINGS: Subpleural opacities within the lower lungs represent atelectasis. A small amount of pneumomediastinum is noted. There is a small hiatal hernia. Gas adjacent to the distal esophagus is noted. This pneumomediastinum likely originates from the abdomen. There is moderate pneumoperitoneum. This is probably postsurgical. Mild biliary ductal dilatation is noted. Interval findings consistent with recent cholecystectomy are noted. There are several operative bed fluid collections, including a slightly dense 3.9 x 2.2 cm lateral operative bed fluid collection on image 103 of 349, a hypodense 3.5 x 3 cm central operative bed fluid collection on image 99 and a rim-enhancing gas and fluid containing collection along the lateral aspect of the distal stomach and proximal duodenum on image 113 and measures 3.1 x 1.3 cm. Moderate wall thickening of the distal stomach and proximal duodenum is noted as well as moderate wall thickening of the hepatic flexure of the colon. The findings are probably postsurgical. Spleen, adrenal glands, pancreas and right kidney are unremarkable. There is a left renal cyst. There is no hydronephrosis. Stable appearance of a large abdominal aortic aneurysm sac is noted with bifurcated aortoiliac stent graft. As before, the left iliac limb is occluded with a patent femoral to femoral bypass graft. There is severe stenosis of the proximal right superficial femoral artery, suboptimally assessed on this exam. A 4.1 x 2.6 cm right adnexal cystic lesion is unchanged. No evidence for a bowel obstruction. IMPRESSION: 1. Status post recent cholecystectomy. Moderate pneumoperitoneum. This is likely postsurgical. Although less likely, a perforated viscus would be difficult to completely exclude. Short-term follow-up CT in 48 to 72 hours could be obtained to ensure decrease in gas. Small amount of pneumomediastinum adjacent to the distal esophagus is likely related to pneumoperitoneum. 2. Several operative bed fluid collections, as described above, not unexpected in the early postoperative setting. The lateral most collection likely represents a small hematoma. No large hematoma. These collections could be assessed on the follow-up CT to ensure stability/improvement. 3. Mild intrahepatic biliary ductal dilatation. This could be correlated with liver function tests. 4. Wall thickening of the distal stomach, proximal duodenum and hepatic flexure of the colon. This is nonspecific but likely postsurgical and can be assessed on the follow-up CT. 5. Stable appearance of a large infrarenal abdominal aortic aneurysm status post placement of a bifurcated aortoiliac stent graft. ACT 112: Negative or not required by law. Electronically signed by: Juan Rubio M.D. 03/31/2025 1:40 PM Discharge Plan Visit Data Chief Complaint: Vomiting Stated Complaint: VOMITING, JUST HAD GALLBLADDER REMOVED, DOC REF ED Provider: Jenn Chavez Discharge Problem: Nausea & vomiting, Elevated lactic acid level, Sepsis, Leukocytosis, Elevated troponin, JUNE (acute kidney injury), Elevated procalcitonin, Post op infection Patient Disposition: Admitted As Inpatient Condition: Serious Forms Stand Alone Forms: [facility] Prescriptions Prescriptions: No Action rosuvastatin 10 mg tablet 10 mg PO HS Qty: 90 3RF ondansetron 4 mg tablet,disintegrating 4 mg PO Q8H PRN (Reason: nausea and vomiting) 4 Days Qty: 12 0RF aspirin 81 mg tablet,chewable 81 mg PO HS (DME) Walking Cane Misc See Rx Instructions .MEDSUPPLY Qty: 1 0RF Rx Instructions: As directed losartan 25 mg Tablet 25 mg PO DAILY metoprolol succinate 25 mg Tablet Extended Release 24 Hr 25 mg PO QAM clopidogrel 75 mg tablet 75 mg PO DAILY Patient Comments: aware to get holding instructions from surgeon mirtazapine 15 mg tablet 15 mg PO HS PRN (Reason: Sleep) oxycodone 5 mg tablet 5 mg PO Q6H PRN (Reason: pain) Qty: 15 0RF Rx Instructions: Initial therapy post surgery Referrals Referrals: Alexander Salguero MD [Primary Care Provider] -
[2025-03-31 12:17] LABS: Alanine Aminotransferase 25 U/L (7-52); Albumin Globulin Ratio 1.3 (0.9-2); Albumin Level 3.7 gm/dl (3.4-5.0); Alkaline Phosphatase 86 U/L (34-104); Anion Gap 13 (3-11); Bilirubin,Total 1.3 mg/dl (0.2-1.0); Blood Urea Nitrogen 29 mg/dl (6-23); Calcium 9.3 mg/dl (8.6-10.3); Carbon Dioxide 23 mmol/L (21-32); Chloride 105 mmol/L (98-107); Globulin 2.8 gm/dl (2.5-4.0); Glucose 140 mg/dl (70-99(Fasting)); Lipase 6 U/L (11-82); Potassium 3.7 mmol/L (3.5-5.1); Sodium 141 mmol/L (136-145); Total Protein 6.5 gm/dl (6.0-8.3)
[2025-03-31 12:18] LABS: INR 1.1 (0.9-1.1); Prothrombin Time 12.0 Seconds (9.0-12.0)
[2025-03-31] MEDS: OPTIRAY 320 100ml IV ONE (12:46)
--- NOTE | 2025-03-31 13:41 | CT Scan Report ---
CT SCAN OF THE ABDOMEN AND PELVIS WITH IV CONTRAST CLINICAL HISTORY: Abdominal pain and vomiting. Recent surgery. COMPARISON STUDY: CTA of the abdomen and pelvis January 02, 2025. TECHNIQUE: Following the IV administration of 94 cc of Optiray 320, CT scan of the abdomen and pelvis is performed from the lung bases to the proximal femora. Images are reviewed in the axial, sagittal, and coronal planes. IV contrast was administered without complication. A dose lowering technique was utilized adhering to the principles of ALARA. CT DOSE: 496.51 mGy.cm FINDINGS: Subpleural opacities within the lower lungs represent atelectasis. A small amount of pneumo mediastinum is noted. There is a small hiatal hernia. Gas adjacent to the distal esophagus is noted. This pneumomediastinum likely originates from the abdomen. There is moderate pneumoperitoneum. This i s probably postsurgical. Mild biliary ductal dilatation is noted. Interval findings consistent with r ecent cholecystectomy are noted. There are several operative bed fluid collections, including a sligh tly dense 3.9 x 2.2 cm lateral operative bed fluid collection on image 103 of 349, a hypodense 3.5 x 3 cm central operative bed fluid collection on image 99 and a rim-enhancing gas and fluid containing collection along the lateral aspect of the distal stomach and proximal duodenum on image 113 and tiffany ures 3.1 x 1.3 cm. Moderate wall thickening of the distal stomach and proximal duodenum is noted as w ell as moderate wall thickening of the hepatic flexure of the colon. The findings are probably postsu rgical. Spleen, adrenal glands, pancreas and right kidney are unremarkable. There is a left renal cys t. There is no hydronephrosis. Stable appearance of a large abdominal aortic aneurysm sac is noted wi th bifurcated aortoiliac stent graft. As before, the left iliac limb is occluded with a patent femora l to femoral bypass graft. There is severe stenosis of the proximal right superficial femoral artery, suboptimally assessed on this exam. A 4.1 x 2.6 cm right adnexal cystic lesion is unchanged. No evid ence for a bowel obstruction. IMPRESSION: 1. Status post recent cholecystectomy. Moderate pneumoperitoneum. This is likely postsurgical. Althou gh less likely, a perforated viscus would be difficult to completely exclude. Short-term follow-up CT in 48 to 72 hours could be obtained to ensure decrease in gas. Small amount of pneumomediastinum adj acent to the distal esophagus is likely related to pneumoperitoneum. 2. Several operative bed fluid collections, as described above, not unexpected in the early postopera tive setting. The lateral most collection likely represents a small hematoma. No large hematoma. Thes e collections could be assessed on the follow-up CT to ensure stability/improvement. 3. Mild intrahepatic biliary ductal dilatation. This could be correlated with liver function tests. 4. Wall thickening of the distal stomach, proximal duodenum and hepatic flexure of the colon. This is nonspecific but likely postsurgical and can be assessed on the follow-up CT. 5. Stable appearance of a large infrarenal abdominal aortic aneurysm status post placement of a bifur cated aortoiliac stent graft. ACT 112: Negative or not required by law. Electronically signed by: Juan Rubio M.D. 03/31/2025 1:40 PM
[2025-03-31] MEDS: PIPERACILLIN/TAZOBACTAM 4.5 GM/100 ML BAG IV ONE (13:48)
--- NOTE | 2025-03-31 14:36 | Surgery Consultation ---
Date of Consultation March 31, 2025 Assessment & Plan (1) Nausea & vomiting: This is an 85y F with a PMH of dementia, HLD, HTN, now recently s/p laparoscopic cholecystectomy and removal of percutaneous cholecystostomy tube on 03/27/[address] Fernandes who presents to the [facility] ED on 03/31/25 with complaints of vomiting. Some of history obtained from patient with assistance of her daughter at the bedside. Patient seems have been doing well [place] after surgery, but then apparently started having a rough weekend in terms of not eating much/feeling well and then had vomiting multiple times today with + pain. She called the office and due to symptoms was referred to the ER for further evaluation. In the ER the patient underwent a CT a/p that showed evidence of moderate pneumoperitoneum, likely postsurgical. In addition to several operative bed fluid collections, not unexpected in the early postoperative setting, likely hematoma. Patient reports chills. No BM since surgery, but passing some gas. She denies any fevers, chest pain, shortness of breath. Not much appetite. Labs in the ER show WBC 12.9, Hbg 11.3, Cr 1.8, Lactate 3.7, Tb 1.3, AST 21, ALT 25, Alkp 86, Lipase 6. Vitals show patient is afebrile with HRs 90-100s, Systolic BPs 99-126 over 60-70s. On examination patient is tender across the upper/mid abdominal regions with voluntary guarding. Abdomen does not appear distended or firm. Her incisions are c/d/i with dermabond, no signs of infection, + ecchymosis around abdomen noted. Would admit to the hospital for IVF resuscitation, IV abx, and supportive care. Labs reflect likely dehydration and would repeat lactate later today to ensure it is trending down. Would keep NPO with ice/sips for now, hold plavix if any future procedures needed. May consider repeat CT scan in couple of days as suggested by radiology for further evaluation to ensure findings are stable to improving. Will follow along closely. Supervising Physician Co-Signing Physician Notes This case was discussed with the surgical PA. I agree with this plan. History of Present Illness History of Present Illness This is an 85y F with a PMH of dementia, HLD, HTN, AAA, now recently s/p laparoscopic cholecystectomy and removal of percutaneous cholecystostomy tube on 03/27/[address] Fernandes who presents to the [facility] ED on 03/31/25 with complaints of vomiting. Some of history obtained from patient with assistance of her daughter at the bedside. Patient seems have been doing well [place] after surgery, but then apparently started having a rough weekend in terms of not eating much/feeling well and then had vomiting multiple times today with + pain. She called the office and due to symptoms was referred to the ER for further evaluation. In the ER the patient underwent a CT a/p that showed evidence of moderate pneumoperitoneum, likely postsurgical. In addition to several operative bed fluid collections, not unexpected in the early postoperative setting, likely hematoma. Patient reports chills. No BM since surgery, but passing some gas. She denies any fevers, chest pain, shortness of breath. Not much appetite. She denies any pain at rest, but endorses it with palpation of abdomen. Reports resuming her plavix on monday, the day after surgery. Allergies Allergy/AdvReac Type Severity Reaction Status Date / Time donepezil AdvReac Mild Nausea Verified 03/27/25 08:32 Home Medications Medication Instructions Recorded Confirmed Type aspirin 81 mg chewable tablet 81 mg PO HS 10/22/18 03/31/25 History Walking Cane #1 ea 04/16/24 02/12/25 Rx clopidogrel 75 mg tablet 75 mg PO DAILY 03/18/25 03/31/25 History losartan 25 mg tablet 25 mg PO DAILY 03/18/25 03/31/25 History metoprolol succinate 25 mg 25 mg PO QAM 03/18/25 03/31/25 History tablet,extended release 24 hr rosuvastatin 10 mg tablet 10 mg PO HS #90 tabs 03/25/25 03/31/25 Rx mirtazapine 15 mg tablet 15 mg PO HS PRN Sleep 03/27/25 03/31/25 History oxycodone 5 mg tablet 5 mg PO Q6H PRN pain #15 tabs 03/27/25 03/31/25 Rx ondansetron 4 mg disintegrating 4 mg PO Q8H PRN nausea and 03/31/25 03/31/25 Rx tablet vomiting 4 days #12 tabs Patient History Medical History PAD (peripheral artery disease) Right to left femorofemoral bypass (done at same time as EVAR 10/29/24) Abdominal aortic aneurysm (AAA) 7.9 cm s/p EVAR with two bifurcated endograft and a right to left femorofemoral bypass 10/29/24 Prediabetes CAD (coronary artery disease) 4 vessel CABG 2014 SDAT (senile dementia of Alzheimer's type) per daughter "not really that bad" Pulmonary emphysema dtr denies "mother has no breathing problems" Carotid artery plaque hx, <50% carotid stenosis per 2021 carotid doppler Acute cholecystitis Admitted to [facility] 10/12/24-10/23/24; s/p cholecystostomy tube placed 10/14/24>still intact on 03/18/25 Not a surgical candidate for cholecystectomy until AAA repaired Hx of sepsis d/c [facility] 10/16/24 "infection coming from gallbladder, finished abx tx 10/23/24" Mild cognitive impairment "forgetful, and in the early stages of dementia" per dtr History of hypertension Hx of hyperlipidemia Myocardial Infarction per dtr "her mom didn't have a heart attack, abnormal stress test in 2014" Seasonal allergies Chronic kidney disease, stage 3 Pulmonary nodule, right monitoring? Surgical History Hx laparoscopic cholecystectomy (03/27/25) Laparoscopic Cholecystectomy with Removal of Her Percutaneous Cholecystectomy Tube - Kirk Fernandes DO History of tooth extraction History of cataract surgery right/left Status post endovascular aneurysm repair (EVAR) (10/29/24) Unilimb Endovascular Aortic Aneurysm Repair using Two Bifurcated endografts, Femoral To Femoral bypass right to left - Christoph Faye MD History of postoperative nausea and vomiting Family history of reaction to anesthesia dtr-N/V and shaking after hysterectomy History of surgical removal of skin lesion (01/13/22) Excision of Skin Lesion on Back- Tae Lopez DO, FACS History of dilatation and curettage ~1989 History of cardiac cath 2014 at [facility] --> transferred to [facility] History of cataract surgery right/left 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, 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, saphenous growing graft to OM2, saphenous vein graft to RCA-January 2015, [facility] Family History Brother Aortic aneurysm Hypertension Father Coronary heart disease Sister Hypertension Mother Diabetes Other No family history of adverse response to anesthesia Denies family history of Ovarian cancer Prostate cancer Breast cancer Colorectal cancer Social History Smoking Status: Former smoker Tobacco Type: Cigarettes Age Started Using Tobacco: 0; packs per day: 0; Cigarettes Per Day: 20; Second Hand Exposure: No; Do You Dip or Chew Tobacco: No; Hx Alcohol Use: No Hx Substance Use: No Preferred Language: [place]ib[place]ian Communication Ability: Impaired Visual Impairment: No Limitations Hearing Ability: Normal Fabric Worker Leader Required: No Beliefs That Will Affect Care: None marital status: / Current Living Situation: Family Current Living Situation Comment: lives with daughter>Natty (cares for mother/other daughter assists) current occupational status: retired current occupation: Housework/cleaning How many Children do You have: 5 Other Information That Helps Us Care for You: No Feels Safe at Home: Yes Safety Concerns: Feels Safe At This Time Childhood Exposure to Second-Hand Smoke: No Diet: regular caffeine: No during the past year weight has: decreased > 10 lbs Dental Care, Regularly: No Physical Activity Frequency: Does not Exercise Seatbelt Use: always Sunscreen Use: No Assistive Devices: Cane, Denture - Upper, Denture - Lower and Glasses Review of Systems Constitutional: + chills and + anorexia; no fever Respiratory: no dyspnea Cardiovascular: no chest pain Gastrointestinal: + nausea, + vomiting and + constipation; no abdominal pain Physical Exam Physical Exam: awake, appears in no distress Respiratory: normal respiratory effort Gastrointestinal (Abdomen): Inspection/Auscultation: + abdominal surgical incision (c/d/i with dermabond, no infection); abdomen not distended Percussion/Palpation: + abdomen tender (tender to palpation across upper abdomen), + guarding (voluntary guarding ) and abdomen soft; abdomen not rigid + ecchymosis across upper/mid abdominal surrounding trocar sites Results & Data Vital Signs (Past 12 Hours) Vital Signs Temp Pulse Pulse Resp BP BP Pulse Ox 03/31/25 14:00 99 H 26 H 122/70 93 03/31/25 13:30 103 H 24 129/68 92 03/31/25 13:30 92 03/31/25 13:30 96 H 18 129/68 92 03/31/25 13:00 113 H 19 122/63 93 03/31/25 12:30 97 H 19 109/60 92 03/31/25 12:08 99 H 03/31/25 12:00 94 H 31 H 121/66 95 03/31/25 11:18 98.6 F 128 H 20 98/62 L 95 O2 Del Method 03/31/25 14:00 Room Air 03/31/25 13:30 Room Air 03/31/25 13:30 Room Air 03/31/25 13:30 Room Air 03/31/25 13:00 Room Air 03/31/25 12:30 Room Air 03/31/25 12:08 03/31/25 12:00 Room Air 03/31/25 11:18 Room Air Diagnostic Findings CT SCAN OF THE ABDOMEN AND PELVIS WITH IV CONTRAST CLINICAL HISTORY: Abdominal pain and vomiting. Recent surgery. COMPARISON STUDY: CTA of the abdomen and pelvis January 02, 2025. TECHNIQUE: Following the IV administration of 94 cc of Optiray 320, CT scan of the abdomen and pelvis is performed from the lung bases to the proximal femora. Images are reviewed in the axial, sagittal, and coronal planes. IV contrast was administered without complication. A dose lowering technique was utilized adhering to the principles of ALARA. CT DOSE: 496.51 mGy.cm FINDINGS: Subpleural opacities within the lower lungs represent atelectasis. A small amount of pneumomediastinum is noted. There is a small hiatal hernia. Gas adjacent to the distal esophagus is noted. This pneumomediastinum likely originates from the abdomen. There is moderate pneumoperitoneum. This is probably postsurgical. Mild biliary ductal dilatation is noted. Interval findings consistent with recent cholecystectomy are noted. There are several operative bed fluid collections, including a slightly dense 3.9 x 2.2 cm lateral operative bed fluid collection on image 103 of 349, a hypodense 3.5 x 3 cm central operative bed fluid collection on image 99 and a rim-enhancing gas and fluid containing collection along the lateral aspect of the distal stomach and proximal duodenum on image 113 and measures 3.1 x 1.3 cm. Moderate wall thickening of the distal stomach and proximal duodenum is noted as well as moderate wall thickening of the hepatic flexure of the colon. The findings are probably postsurgical. Spleen, adrenal glands, pancreas and right kidney are unremarkable. There is a left renal cyst. There is no hydronephrosis. Stable appearance of a large abdominal aortic aneurysm sac is noted with bifurcated aortoiliac stent graft. As before, the left iliac limb is occluded with a patent femoral to femoral bypass graft. There is severe stenosis of the proximal right superficial femoral artery, suboptimally assessed on this exam. A 4.1 x 2.6 cm right adnexal cystic lesion is unchanged. No evidence for a bowel obstruction. IMPRESSION: 1. Status post recent cholecystectomy. Moderate pneumoperitoneum. This is likely postsurgical. Although less likely, a perforated viscus would be difficult to completely exclude. Short-term follow-up CT in 48 to 72 hours could be obtained to ensure decrease in gas. Small amount of pneumomediastinum adjacent to the distal esophagus is likely related to pneumoperitoneum. 2. Several operative bed fluid collections, as described above, not unexpected in the early postoperative setting. The lateral most collection likely represents a small hematoma. No large hematoma. These collections could be assessed on the follow-up CT to ensure stability/improvement. 3. Mild intrahepatic biliary ductal dilatation. This could be correlated with liver function tests. 4. Wall thickening of the distal stomach, proximal duodenum and hepatic flexure of the colon. This is nonspecific but likely postsurgical and can be assessed on the follow-up CT. 5. Stable appearance of a large infrarenal abdominal aortic aneurysm status post placement of a bifurcated aortoiliac stent graft. ACT 112: Negative or not required by law. Electronically signed by: Juan Rubio M.D. 03/31/2025 1:40 PM PG Care Time/CCT Total # of Minutes Spent Total Time Spent with Patient: Total time spent is greater than 50% in coordination of care (as documented) at patient's floor/unit and/or counseling patient: Coding Level of Care Code None Diagnoses Nausea & vomiting R11.2
--- NOTE | 2025-03-31 14:53 | History & Physical Report ---
Date of Service March 31, 2025 Assessment & Plan (1) Post op infection: (2) JUNE (acute kidney injury): (3) Elevated troponin: (4) Nausea & vomiting: (5) H/O insertion of cholecystostomy tube: (6) SDAT (senile dementia of Alzheimer's type): (7) Carotid artery plaque: (8) Pulmonary emphysema: (9) PAD (peripheral artery disease): (10) Prediabetes: Plan #Vomiting #Postop day 2 laparoscopic cholecystectomy #Abdominal pain, abnormal CT findings -No jesus signs of abdominal peritonitis, surgical consultation completed -Admit to telemetry, serial exams, Zosyn, n.p.o., bowel rest, maintenance fluids and antiemetics/pain Rx - Hold anticoagulants #Lactic acidemia #Elevated procalcitonin - In the setting of the immediate postoperative phase, continue Zosyn as above, serial inflammatory markers, supportive cares per sepsis protocol #elevated troponin #Atherosclerotic disease #CAD -EKG largely unremarkable,quite significant increase from initial, however in the setting of acute stress phase reaction, critical illness -No chest pain or signs of ACS -Continue to trend troponins -Telemetry admission -Hold Plavix, consult cardiology, consider heparin if any signs of ACS or troponin trend continues upwards #JUNE - Baseline creatinine 0.9, currently 1.9, making good urine -Clinically consistent with hypovolemia, fluid resuscitation per emergency department and sepsis protocol - Serial monitoring #Pulmonary nodule - Noted on CT, outpatient follow-up #Senile Alzheimer's dementia - Mild to moderate,-high risk for cognitive decompensation/sundowning - Family at bedside, encouraged gentle redirection, minimize sedatives #Hypertension - Stable blood pressure at this time, continue antihypertensives #Hyperlipidemia -Statin #FEN -N.p.o., NS at 100 cc/h #CODE STATUS -DNR/DNI per her wishes, confirmed with the daughter over the telephone at the time of admission History of Present Illness Chief Complaint: Malaise/Vomiting Primary Care Provider: Alexander Salguero MD 85 Y/o F POD#4 Lap chol hx of MCI, Epmhysema, CAD, HTN, HLD, Stage 3 CKD, presents with 24 hour hxdecreaased appetite and vomiting. Some of history obtained from patient with assistance of her daughter and POA over the telephone at the bedside. Doing well [place] after surgery, then decreased appetite, not eating much/feeling unwell and then had vomiting multiple times today with + abdominal pain. In the ER the patient underwent a CT a/p that showed evidence of moderate pneumoperitoneum, likely postsurgical. In addition to several operative bed fluid collections, not unexpected in the early postoperative setting, likely hematoma. Patient reports chills. No BM since surgery, but passing some gas. She denies any fevers, chest pain, shortness of breath. Not much appetite. Surgical consult supportive of admission, NPO, bowel rest, IV abx, serial exams and repeat CT with any decompensation. Allergies Allergy/AdvReac Type Severity Reaction Status Date / Time donepezil AdvReac Mild Nausea Verified 03/27/25 08:32 Home Medications Medication Instructions Recorded Confirmed Type aspirin 81 mg chewable tablet 81 mg PO HS 10/22/18 03/31/25 History Walking Cane #1 ea 04/16/24 02/12/25 Rx clopidogrel 75 mg tablet 75 mg PO DAILY 03/18/25 03/31/25 History losartan 25 mg tablet 25 mg PO DAILY 03/18/25 03/31/25 History metoprolol succinate 25 mg 25 mg PO QAM 03/18/25 03/31/25 History tablet,extended release 24 hr rosuvastatin 10 mg tablet 10 mg PO HS #90 tabs 03/25/25 03/31/25 Rx mirtazapine 15 mg tablet 15 mg PO HS PRN Sleep 03/27/25 03/31/25 History oxycodone 5 mg tablet 5 mg PO Q6H PRN pain #15 tabs 03/27/25 03/31/25 Rx ondansetron 4 mg disintegrating 4 mg PO Q8H PRN nausea and 03/31/25 03/31/25 Rx tablet vomiting 4 days #12 tabs Past Med/Surg History Problem List Post op infection (Acute) Elevated procalcitonin (Acute) JUNE (acute kidney injury) (Acute) Elevated troponin (Acute) Leukocytosis (Acute) Sepsis (Acute) Elevated lactic acid level (Acute) Nausea & vomiting (Acute) Encounter for pre-operative examination Chronic cholecystitis H/O insertion of cholecystostomy tube (10/14/24) [facility], pt d/c 10/16/[address] Nausea & vomiting (Acute) Elevated lactic acid level (Acute) Osteoarthritis of right knee Pulmonary nodules SDAT (senile dementia of Alzheimer's type) Chronic kidney disease, stage 3a B12 deficiency SCC (squamous cell carcinoma) Pigmented skin lesion of uncertain nature Mild cognitive impairment alert and oriented x3 - "forgetful" Carotid artery plaque Pulmonary emphysema (Acute) pt unaware Hyperlipidemia (Acute) Arteriosclerosis of coronary artery (Acute) Hypertension (Chronic) Medical History PAD (peripheral artery disease) Right to left femorofemoral bypass (done at same time as EVAR 10/29/24) Abdominal aortic aneurysm (AAA) 7.9 cm s/p EVAR with two bifurcated endograft and a right to left femorofemoral bypass 10/29/24 Prediabetes CAD (coronary artery disease) 4 vessel CABG 2014 SDAT (senile dementia of Alzheimer's type) per daughter "not really that bad" Pulmonary emphysema dtr denies "mother has no breathing problems" Carotid artery plaque hx, <50% carotid stenosis per 2021 carotid doppler Acute cholecystitis Admitted to [facility] 10/12/24-10/23/24; s/p cholecystostomy tube placed 10/14/24>still intact on 03/18/25 Not a surgical candidate for cholecystectomy until AAA repaired Hx of sepsis d/c [facility] 10/16/24 "infection coming from gallbladder, finished abx tx 10/23/24" Mild cognitive impairment "forgetful, and in the early stages of dementia" per dtr History of hypertension Hx of hyperlipidemia Myocardial Infarction per dtr "her mom didn't have a heart attack, abnormal stress test in 2014" Seasonal allergies Chronic kidney disease, stage 3 Pulmonary nodule, right monitoring? Surgical History Hx laparoscopic cholecystectomy (03/27/25) Laparoscopic Cholecystectomy with Removal of Her Percutaneous Cholecystectomy Tube - Kirk Fernandes DO History of tooth extraction History of cataract surgery right/left Status post endovascular aneurysm repair (EVAR) (10/29/24) Unilimb Endovascular Aortic Aneurysm Repair using Two Bifurcated endografts, Femoral To Femoral bypass right to left - Christoph Faye MD History of postoperative nausea and vomiting Family history of reaction to anesthesia dtr-N/V and shaking after hysterectomy History of surgical removal of skin lesion (01/13/22) Excision of Skin Lesion on Back- Tae Lopez DO, [place] History of dilatation and curettage ~1989 History of cardiac cath 2014 at [facility] --> transferred to [facility] History of cataract surgery right/left 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, 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, saphenous growing graft to OM2, saphenous vein graft to RCA-January 2015, [facility] Family History Brother Aortic aneurysm Hypertension Father Coronary heart disease Sister Hypertension Mother Diabetes Other No family history of adverse response to anesthesia Denies family history of Ovarian cancer Prostate cancer Breast cancer Colorectal cancer Social History Smoking Status: Former smoker Tobacco Type: Cigarettes Age Started Using Tobacco: 0; packs per day: 0; Cigarettes Per Day: 20; Second Hand Exposure: No; Do You Dip or Chew Tobacco: No; Hx Alcohol Use: No Hx Substance Use: No Preferred Language: Luxembourgish Communication Ability: Impaired Communication Ability Comment: daughter>Natty is healthcare POA and will sign OR consent (dementia) Visual Impairment: No Limitations Hearing Ability: Normal Flatwork Assembler Required: No Beliefs That Will Affect Care: None marital status: / Current Living Situation: Family Current Living Situation Comment: lives with daughter>Natty (cares for mother/other daughter assists) current occupational status: retired current occupation: Housework/cleaning How many Children do You have: 5 Feels Safe at Home: Yes Childhood Exposure to Second-Hand Smoke: No Diet: regular caffeine: No during the past year weight has: decreased > 10 lbs Dental Care, Regularly: No Physical Activity Frequency: Does not Exercise Seatbelt Use: always Sunscreen Use: No Assistive Devices: Cane, Denture - Upper, Denture - Lower and Glasses Review of Systems Review of Systems: Aside from that noted in HPI unavailable per patient given underlying cognitive impairment Physical Exam Physical Exam: Cardiovascular: tachycardia with regular rhythm. No murmurs, rubs or gallops. Intact distal pulses. Pulmonary/Chest: No respiratory distress. Breath sounds clear and equal bilaterally. No wheezes or rales. Abdominal: Abdomen soft, no rebound or guarding. Diffusely tender to palpation, left side > right, nondistended Musculoskeletal: 1+ pitting edema bilaterally,no tenderness or deformity noted. Skin: Warm and dry. No rash, erythema, pallor or cyanosis Psychiatric: Appropriate mood and affect for situation. Neurological: Alert and keenly responsive. confused, responses often do not follow with questioning, CN II-XII grossly intact, moving all extremities equally and fully. Results & Data Results & Data Vital Signs (Past 12 Hours) Vital Signs Temp Pulse Pulse Resp BP BP Pulse Ox 03/31/25 14:00 99 H 26 H 122/70 93 03/31/25 13:30 103 H 24 129/68 92 03/31/25 13:30 92 03/31/25 13:30 96 H 18 129/68 92 03/31/25 13:00 113 H 19 122/63 93 03/31/25 12:30 97 H 19 109/60 92 03/31/25 12:08 99 H 03/31/25 12:00 94 H 31 H 121/66 95 03/31/25 11:18 37 C 128 H 20 98/62 L 95 O2 Del Method 03/31/25 14:00 Room Air 03/31/25 13:30 Room Air 03/31/25 13:30 Room Air 03/31/25 13:30 Room Air 03/31/25 13:00 Room Air 03/31/25 12:30 Room Air 03/31/25 12:08 03/31/25 12:00 Room Air 03/31/25 11:18 Room Air Laboratory Results 03/31/25 12:32 Aerobic Blood Culture - Pending Blood Anaerobic Blood Culture - Pending 03/31/25 12:30 Aerobic Blood Culture - Pending Blood Anaerobic Blood Culture - Pending 03/31/25 03/31/25 03/31/25 13:48 11:53 11:35 WBC 12.94 H RBC 3.92 L Hgb 11.3 L Hct 34.4 L MCV 87.8 MCH 28.8 MCHC 32.8 RDW Std Deviation 47.4 H RDW Coeff of Lea 14.8 H Plt Count 225 MPV 10.4 Immature Gran % (Auto) 0.4 Neut % (Auto) 85.2 Lymph % (Auto) 5.2 Christian % (Auto) 8.1 Eos % (Auto) 0.9 Baso % (Auto) 0.2 Neut # (Auto) 11.02 H Lymph # (Auto) 0.67 L Christian # (Auto) 1.05 H Eos # (Auto) 0.12 Baso # (Auto) 0.03 Immature Gran # (Auto) 0.05 PT 12.0 INR 1.1 Sodium 141 Potassium 3.7 Chloride 105 Carbon Dioxide 23 Anion Gap 13 H BUN 29 H Creatinine 1.89 H Est Cr Clr Drug Dosing Not Reportable eGFR 25.88 BUN/Creatinine Ratio 15.3 Glucose 140 H Lactate 3.7 H* Calcium 9.3 Total Bilirubin 1.3 H AST 21 ALT 25 Alkaline Phosphatase 86 Troponin I High Sens 867.4 H* D 320.8 H* Total Protein 6.5 Albumin 3.7 Globulin 2.8 Albumin/Globulin Ratio 1.3 Lipase 6 L Procalcitonin 10.40 H Diagnostic Findings Abdomen/Pelvis CT 03/31/25 12:02 CT SCAN OF THE ABDOMEN AND PELVIS WITH IV CONTRAST CLINICAL HISTORY: Abdominal pain and vomiting. Recent surgery. COMPARISON STUDY: CTA of the abdomen and pelvis January 02, 2025. TECHNIQUE: Following the IV administration of 94 cc of Optiray 320, CT scan of the abdomen and pelvis is performed from the lung bases to the proximal femora. Images are reviewed in the axial, sagittal, and coronal planes. IV contrast was administered without complication. A dose lowering technique was utilized adhering to the principles of ALARA. CT DOSE: 496.51 mGy.cm FINDINGS: Subpleural opacities within the lower lungs represent atelectasis. A small amount of pneumomediastinum is noted. There is a small hiatal hernia. Gas adjacent to the distal esophagus is noted. This pneumomediastinum likely originates from the abdomen. There is moderate pneumoperitoneum. This is probably postsurgical. Mild biliary ductal dilatation is noted. Interval findings consistent with recent cholecystectomy are noted. There are several operative bed fluid collections, including a slightly dense 3.9 x 2.2 cm lateral operative bed fluid collection on image 103 of 349, a hypodense 3.5 x 3 cm central operative bed fluid collection on image 99 and a rim-enhancing gas and fluid containing collection along the lateral aspect of the distal stomach and proximal duodenum on image 113 and measures 3.1 x 1.3 cm. Moderate wall thickening of the distal stomach and proximal duodenum is noted as well as moderate wall thickening of the hepatic flexure of the colon. The findings are probably postsurgical. Spleen, adrenal glands, pancreas and right kidney are unremarkable. There is a left renal cyst. There is no hydronephrosis. Stable appearance of a large abdominal aortic aneurysm sac is noted with bifurcated a ortoiliac stent graft. As before, the left iliac limb is occluded with a patent femoral to femoral bypass graft. There is severe stenosis of the proximal right superficial femoral artery, suboptimally assessed on this exam. A 4.1 x 2.6 cm right adnexal cystic lesion is unchanged. No evidence for a bowel obstruction. IMPRESSION: 1. Status post recent cholecystectomy. Moderate pneumoperitoneum. This is likely postsurgical. Although less likely, a perforated viscus would be difficult to completely exclude. Short-term follow-up CT in 48 to 72 hours could be obtained to ensure decrease in gas. Small amount of pneumomediastinum adjacent to the distal esophagus is likely related to pneumoperitoneum. 2. Several operative bed fluid collections, as described above, not unexpected in the early postoperative setting. The lateral most collection likely represents a small hematoma. No large hematoma. These collections could be assessed on the follow-up CT to ensure stability/improvement. 3. Mild intrahepatic biliary ductal dilatation. This could be correlated with liver function tests. 4. Wall thickening of the distal stomach, proximal duodenum and hepatic flexure of the colon. This is nonspecific but likely postsurgical and can be assessed on the follow-up CT. 5. Stable appearance of a large infrarenal abdominal aortic aneurysm status post placement of a bifurcated aortoiliac stent graft. ACT 112: Negative or not required by law. Electronically signed by: Juan Rubio M.D. 03/31/2025 1:40 PM PG Care Time/CCT Total # of Minutes Spent Total Time Spent with Patient: Total time spent is greater than 50% in coordination of care (as documented) at patient's floor/unit and/or counseling patient: Coding Level of Care Code 72242 INT INP/OBS CARE 2/55MIN Diagnoses Post op infection T81.40XA JUNE (acute kidney injury) N17.9 Elevated troponin R79.89 Nausea & vomiting R11.2 H/O insertion of cholecystostomy tube Z98.890 SDAT (senile dementia of Alzheimer's type) G30.1; F02.80 Atherosclerosis of both carotid arteries I65.23 Laterality: bilateral Pulmonary emphysema J43.9 PAD (peripheral artery disease) I73.9 Prediabetes R73.03 (7) Carotid artery plaque Laterality: bilateral Qualified Code(s): I65.23 - Occlusion and stenosis of bilateral carotid arteries
[2025-03-31] MEDS ORDERED: ONDANSETRON INJ 2 MG/ML 2 ML VIAL IV PRN (18:51)
[2025-03-31] MEDS ORDERED: ACETAMINOPHEN 325 MG TAB PO PRN (18:51)
[2025-03-31] MEDS ORDERED: MoRPHine SULFATE 2 MG/ML CARP IV PRN (18:51)
[2025-03-31] MEDS ORDERED: MIRTAZAPINE TAB 15 MG TAB PO PRN (18:51)
[2025-03-31] MEDS: SODIUM CHLORIDE 0.9% 1,000 ML IV SCH (20:26)
[2025-03-31] MEDS ORDERED: Heparin IV Adult Wt-Based Low-Dose *NO* INITIAL Bolus Protocol IV SCH (20:30)
[2025-03-31] MEDS ORDERED: HEPARIN 25000 UNIT/500 ML D5W 25,000 UNITS/500 ML BAG IV SCH (20:30)
[2025-03-31 20:48] LABS: Hematocrit (blood only) 27.7 % (37.0-47.0); Hemoglobin 9.2 g/dL (12.0-16.0); Immature Granulocytes # (auto) 0.04 K/uL (0.01-0.20); Immature Granulocytes % (auto) 0.4 %; Mean Corpuscular Hemoglobin 29.5 pg (25.0-34.0); Mean Corpuscular Volume 88.8 fL (80.0-100.0); Platelet Count 146 K/uL (130-400); RDW Standard Deviation 47.9 fL (36.4-46.3); Red Blood Count 3.12 M/uL (4.20-5.40); White Blood Count 10.93 K/ul (4.8-10.8)
--- NOTE | 2025-03-31 20:52 | Communication Note ---
Date of Service: March 31, 2025 This patient was signed out to me by our dayshift team. The patient underwent a laparoscopic cholecystectomy and removal of cholecystostomy tube by Dr. Norm Fernandes history of general surgery on 03/27/2025. Patient presented to the emergency department today as she has been having ongoing abdominal pain as well as nausea and vomiting for approximately the last 2 to 3 days. Patient's chart was reviewed and the patient does take Plavix which was resumed the day following her surgery on 03/28/2025. The patient had a CT scan of the abdomen pelvis today time of admission that showed patient had moderate pneumoperitoneum which the interpreting radiologist felt was likely post surgical although perforated viscus could not entirely be excluded. There were several operative bed fluid collections noted felt to likely represent hematoma. At time of admission/presentation the patient was noted to have elevated lactic acid level of 3.7. The patient has since been treated with n.p.o. status, antibiotics, and intravenous fluids and her lactic acid level subsequently normalized to 1.5. It is noteworthy mention the patient was tachycardic at time of presentation with a heart rate anywhere from the low 90s to approximately 128. Her tachycardia has also since resolved and she has remained normotensive. The patient did have some EKGs performed where there is concern for new T wave inversions in leads V4 through V6. The patient has had serial troponins followed since admission with initial troponin at approximate 11:30 AM this morning 320. Her most recent troponin was at approximately 4:15 PM and had increased to 1329. I visited with the patient at the bedside and other than abdominal pain she does not have any additional complaints specifically denying any chest pain or shortness of breath. Due to the findings on her EKG as well as elevated troponins I discussed the case with the hospitalist/medical service and we have elected to place the patient on low-dose heparin with no bolus. An echocardiogram and cardiology consultation are planned for the morning. I did discuss the case with my surgical attending, Dr. Calderon and she notes that due to the patient's increasing troponin heparin as described above is acceptable. As there is concern the patient may have a surgical hematoma we will follow serial hemoglobin and hematocrits with further recommendations to follow. Addendum 12:15 a.m. Patient has been reassessed multiple times this shift. Her cardiac enzymes have been trendedAnd continue to rise with her most recent troponin of 5749. The patient has also had her hemoglobin and hematocrit trended and her most recent hemoglobin has dropped to 9.2. I discussed with the hospital service due to the drop in hemoglobin initiating heparin was withheld and we opted to repeat a CT scan abdomen pelvis to assess for retroperitoneal bleed. This study was obtained and there is no comment of retroperitoneal bleed on this study. Given her most recent CT scan findings the hospitalist noted that they will initiate low-dose heparin with no bolus and continue to follow serial cardiac enzymes as well as serial hemoglobin and hematocrits. Of note, we did obtain a type and cross 2 units of packed red blood cells for this patientif the patient does have a significant drop in her hemoglobin and hematocrit we will likely transfuse and the patient has consented to this At the time of my revisit with the patient she was sleeping comfortably in bed and was easily awakened and notes that she feels comfortable at the present time. Nursing staff notes that she has remained hemodynamically stable without any episodes of tachycardia or hypotension. She has not had any episodes of emesis on this shift. Will continue to follow closely Addendum (6:00 AM) Patient was revisited at bedside multiple times and she has remained hemodynamically stable without hypotension or tachycardia. I discussed with [facility] staff and low-dose heparin with no bolus was started at approximately 1:30 AM. Patient's a.m. labs reviewed and hemoglobin and hematocrit are now 8.3 and 25.5. I discussed with hospitalist service and they felt it was best to continue heparin as patient has remained hemodynamically stable. Plans are for patient to have an echocardiogram this morning along with cardiology consultation. She also has additional troponins that are pending at this time.
[2025-03-31 21:05] LABS: Alanine Aminotransferase 21.0 U/L (7-52); Albumin Globulin Ratio 1.0 (0.9-2); Albumin Level 2.9 gm/dl (3.4-5.0); Alkaline Phosphatase 69.0 U/L (34-104); Anion Gap 7.0 (3-11); Bilirubin,Total 1.2 mg/dl (0.2-1.0); Blood Urea Nitrogen 30.0 mg/dl (6-23); Calcium 8.3 mg/dl (8.6-10.3); Carbon Dioxide 25.0 mmol/L (21-32); Chloride 108.0 mmol/L (98-107); Creatinine Clr Calc Pharmacy 19.6 ml/min; Globulin 2.8 gm/dl (2.5-4.0); Glucose 115.0 mg/dl (70-99(Fasting)); Potassium 3.8 mmol/L (3.5-5.1); Sodium 140.0 mmol/L (136-145); Total Protein 5.7 gm/dl (6.0-8.3)
[2025-03-31 21:15] LABS: Partial Thromboplastin Time 33 Seconds (21-31)
[2025-03-31 21:22] LABS: Influenza A virus by PCR Negative (Neg); Influenza B virus by PCR Negative (Neg); SARS CoV2 RNA(COVID-19) Ceph NEGATIVE (Negative)
[2025-03-31] MEDS ORDERED: Heparin IV Adult Wt-Based Low-Dose *NO* INITIAL Bolus Protocol IV STA (21:28)
[2025-03-31] MEDS ORDERED: SODIUM CHLORIDE 0.9% 100 ML IV PRN (22:09)
[2025-03-31] MEDS: PIPERACILLIN/TAZOBACTAM 4.5 GM/100 ML BAG IV SCH (22:21)
--- NOTE | 2025-03-31 23:38 | CT Scan Report ---
Exam(s): CT ABDOMEN + PELVIS Without Contrast EXAM: CT Abdomen and Pelvis Without Intravenous Contrast CLINICAL HISTORY: Reason for exam: eval for intra-abd/retorperitoneal bleed. TECHNIQUE: Axial computed tomography images of the abdomen and pelvis without intravenous contrast. CTDI is 16.17 mGy and DLP is 796.75 mGy-cm. Automated exposure control was utilized for the study. A dose lowering technique was utilized adhering to the principles of ALARA. COMPARISON: Exam performed earlier on the same date FINDINGS: Lung bases: Unremarkable. No mass. No consolidation. ABDOMEN: Liver: Unremarkable. Gallbladder and bile ducts: Postop changes prior cholecystectomy with comparatively speaking decrease fluid within the gallbladder fossa. No ductal dilation. Pancreas: Unremarkable. No ductal dilation. Spleen: Unremarkable. No splenomegaly. Adrenals: Unremarkable. No mass. Kidneys and ureters: Both kidneys opacify within excrete contrast in a normal symmetric fashion. No obstructing stones. No hydronephrosis. Stomach and bowel: Unremarkable. No obstruction. No mucosal thickening. PELVIS: Appendix: No findings to suggest acute appendicitis. Bladder: Large amount of contrast seen within the urinary bladder secondary to excretion from prior administration. No stones. Reproductive: Unremarkable as visualized. ABDOMEN and PELVIS: Intraperitoneal space: Massive amount of free air identified on this exam. No significant fluid collection. Bones/joints: No acute fracture. No dislocation. Soft tissues: Unremarkable. Vasculature: Postoperative changes endovascular aortic aneurysm repair. Aneurysmal sac measures 5.9 x 6.1 cm this is essentially unchanged from prior study. Postoperative changes [id number] fem-fem bypass graft. Lymph nodes: Unremarkable. No enlarged lymph nodes. IMPRESSION: No acute findings in the abdomen or pelvis. Massive amount of free air within the abdomen this is unchanged from prior exam Stable infrarenal abdominal aortic aneurysm status post endovascular aortic aneurysm repair Postoperative changes [id number] fem-fem bypass graft Postoperative changes prior cholecystectomy with small amount of fluid seen within the gallbladder fossa. Communications: Call Doctor Pneumoperitoneum, new or unexpected Electronically signed by: David Boyer MD 03/31/25 23:37 PM
[2025-04-01] MEDS ORDERED: Heparin IV Adult Wt-Based Low-Dose *NO* INITIAL Bolus Protocol IV STA (01:10)
[2025-04-01] MEDS: HEPARIN 25000 UNIT/500 ML D5W 25,000 UNITS/500 ML BAG IV SCH ×2 (01:23→01:48)
[2025-04-01 05:11] LABS: Hematocrit (blood only) 25.5 % (37.0-47.0); Hemoglobin 8.3 g/dL (12.0-16.0); Immature Granulocytes # (auto) 0.06 K/uL (0.01-0.20); Immature Granulocytes % (auto) 0.6 %; Mean Corpuscular Hemoglobin 29.3 pg (25.0-34.0); Mean Corpuscular Volume 90.1 fL (80.0-100.0); Platelet Count 160 K/uL (130-400); RDW Standard Deviation 49.0 fL (36.4-46.3); Red Blood Count 2.83 M/uL (4.20-5.40); White Blood Count 9.93 K/ul (4.8-10.8)
[2025-04-01 05:26] LABS: Alanine Aminotransferase 19.0 U/L (7-52); Albumin Globulin Ratio 1.3 (0.9-2); Albumin Level 2.8 gm/dl (3.4-5.0); Alkaline Phosphatase 60.0 U/L (34-104); Anion Gap 8.0 (3-11); Bilirubin,Total 1.0 mg/dl (0.2-1.0); Blood Urea Nitrogen 31.0 mg/dl (6-23); Calcium 7.8 mg/dl (8.6-10.3); Carbon Dioxide 24.0 mmol/L (21-32); Chloride 109.0 mmol/L (98-107); Creatinine Clr Calc Pharmacy 19.6 ml/min; Globulin 2.2 gm/dl (2.5-4.0); Glucose 86.0 mg/dl (70-99(Fasting)); Magnesium 1.8 mg/dl (1.7-2.4); Potassium 3.8 mmol/L (3.5-5.1); Sodium 141.0 mmol/L (136-145); Total Protein 5.0 gm/dl (6.0-8.3)
[2025-04-01 06:00] LABS: Appearance Urine Cloudy (Clear); Bacteria Urine Automated None Seen (None Seen); Glucose Urine UA Negative (Negative)
[2025-04-01 08:07] LABS: ANTI-Xa, UFH(UnfractionatedHep < 0.10 IU/ml (0.3-0.7)
[2025-04-01] MEDS: METOPROLOL SUCC 25MG EXT REL TAB PO SCH (08:08)
--- NOTE | 2025-04-01 08:28 | Surgery Progress Note ---
Date of Service April 01, 2025 Assessment & Plan (1) Nausea & vomiting: Plan: Patient is POD #5 s/p laparoscopic cholecystectomy and perc harry tube removal by Dr. Fernandes -Patient has no complaints of abdominal pain. Denies any N/V overnight or this morning. No signs of peritonitis on exam -Due to elevated troponin levels cardiology team has been consulted - pending their input and recommendations this morning. Continue to trend troponin levels, most recent 6721.8. -Hemoglobin slightly down trended this morning to 8.3, however she has remained hemodynamic stable and is not tachycardic or hypotensive. Ok to continue heparin at this time -Afebrile and WBC WNL, can continue IV abx for now -Appreciate medicine and cardiology input, surgery will continue to follow along closely Admission and Anticipated Discharge Date Admission Date: March 31, 2025 Supervising Physician Co-Signing Physician Notes I have seen and examined this patient this am. I agree with this assessment and plan Pt is asymptomatic, her vitals area stable There is some mild bruising scattered across her mid abdomen between incision sites. Her abdomen is soft, non-distended and pain is better controlled. Ok for Heparin drip if needs to continue per cardiology and if her H/H can be kept stable. Her abdominal exam this am is reassuring. Will f/u cardiology recommendations for time to return to a diet and recommend starting with clears to be sure nausea will remain resolved prior to advancing to solid food. We appreciate medical and cardiology input and care of this patient. The surgery team will continue to follow closely. Subjective Patient seen and evaluated early this morning at bedside. Patient was resting comfortably in bed and vital signs are stable. This morning patient has no complaints, denies any abdominal pain, nausea or vomiting. She has remained hemodynamically stable overnight, receiving heparin. Hemoglobin slightly down trended this morning to 8.3, however is not hypotensive or tachycardic at this time. Pending cardiology evaluation this morning, serial troponin have been trended since admission and most recent troponin level 6721.8. Patient denies any CP or SOB during my evaluation Physical Exam Constitutional: WD/WN, vitals as above Respiratory: normal respiratory effort; no respiratory distress and no labored breathing Cardiovascular: Rate/Rhythm: regular rate Gastrointestinal (Abdomen): Abdomen soft, nondistended, nontender to palpation Incisions are c/d/i with Dermabond in place. +Ecchymosis across upper/mid abdominal s urrounding trocar sites Results & Data Vital Signs (Past 12 Hours) Vital Signs Temp Pulse Pulse Resp BP Pulse Ox O2 Del Method 04/01/25 08:16 36.8 C 76 17 131/61 94 Room Air 04/01/25 07:22 72 04/01/25 02:14 36.4 C L 78 18 104/62 96 Room Air 03/31/25 23:21 37.1 C 88 18 108/58 L 94 Room Air 03/31/25 21:44 85 PG Care Time/CCT Total # of Minutes Spent Total Time Spent with Patient: Total time spent is greater than 50% in coordination of care (as documented) at patient's floor/unit and/or counseling patient: [place] [address] Post Operative Follow-Up Patient Type Established Medical Decision Making Straight Forward Diagnoses Nausea & vomiting R11.2
[2025-04-01] MEDS: HEPARIN SOD (PORCINE) 1000 UNIT/ML 1 ML VIAL IV ONE (08:32)
[2025-04-01] MEDS ORDERED: LOSARTAN POTASSIUM 25 MG TAB PO SCH (09:00)
--- NOTE | 2025-04-01 10:17 | Cardiology Consultation ---
Date of Consultation April 01, 2025 Assessment & Plan (1) Elevated troponin: (2) Abnormal ECG: (3) Sepsis: Plan Past cardiac history: 1.Echo 10/2024 - Akinesis of the basal inferoseptum, basal inferior and basal-mid inferolateral LV dawson, EF 50-55%, Moderate concentric left ventricular hypertrophy 2. 7.9 cm infrarenal abdominal aortic aneurysm s/p PEVAR 10/2024 3. HTN 4. CAD s/p coronary artery bypass grafting in 2014 [facility] [place] 5. HLD Ms. Redd does appear to have experienced a cardiac event but as her troponin is downtrending and her EKG has also improved, she appears to be on the other side of it. She is also not having any anginal symptoms. Her EKG on March 31 when she got to the emergency department did show ST segments in the lateral leads that were starting to elevate/become biphasic. Her EKG a few hours later showed resolution of the T wave elevations, now with T wave inversions. The Q waves with T wave inversions in the inferior leads are chronic and can be seen in earlier EKGs and correlate with the known prior wall motion abnormalities in her basal inferoseptum, basal inferior and basal mid inferior lateral LV dawson. Repeat echocardiogram today does not show new wall motion abnormalities and EF remains 50-55%. Given her drop in hgb of 3g with possible hematoma on imaging, her heparin should be discontinued. The anemia itself along with sepsis is contributing to the ischemic demand of her heart. She should be placed on aspirin. Plavix can be held for now. The drop in hgb, the infection, as well as stable echo and resolving troponin make the risk of cardiac catheterization outweigh the benefit. She is not in a position at present to tolerate DAPT should she need a stent. I have increased her metoprolol to 50 mg from 25. Her case was discussed with the hospitalist as well as Dr. Carlos and Dr. Mendez. History of Present Illness Attending Physician: Rashard Guo MD History of Present Illness Ms. Redd presented to the emergency department yesterday after abdominal pain with nausea and vomiting following a laparoscopic cholecystectomy. She was found to be septic with an elevated lactic acid. She was tachycardic on presentation. This has resolved. She has remained normotensive. She had ischemic EKG changes and her troponin trended up to 8500. There was concern for pneumoperitoneum on her CT scan postsurgical versus perforated viscus. There were also several fluid collections thought to represent hematoma. This morning she is very tired and can hardly keep awake while we talk. She denies chest pain, sob or palpitations. She is in sinus rhythm on telemetry. She has a history of Alzheimers but can tell me she is in the hospital (though she thought it was [facility]) and that it is March. Allergies Allergy/AdvReac Type Severity Reaction Status Date / Time donepezil AdvReac Mild Nausea Verified 03/27/25 08:32 Home Medications Medication Instructions Recorded Confirmed Type aspirin 81 mg chewable tablet 81 mg PO HS 10/22/18 03/31/25 History Walking Cane #1 ea 04/16/24 02/12/25 Rx clopidogrel 75 mg tablet 75 mg PO DAILY 03/18/25 03/31/25 History losartan 25 mg tablet 25 mg PO DAILY 03/18/25 03/31/25 History metoprolol succinate 25 mg 25 mg PO QAM 03/18/25 03/31/25 History tablet,extended release 24 hr rosuvastatin 10 mg tablet 10 mg PO HS #90 tabs 03/25/25 03/31/25 Rx mirtazapine 15 mg tablet 15 mg PO HS PRN Sleep 03/27/25 03/31/25 History oxycodone 5 mg tablet 5 mg PO Q6H PRN pain #15 tabs 03/27/25 03/31/25 Rx ondansetron 4 mg disintegrating 4 mg PO Q8H PRN nausea and 03/31/25 03/31/25 Rx tablet vomiting 4 days #12 tabs Patient History Medical History PAD (peripheral artery disease) Right to left femorofemoral bypass (done at same time as EVAR 10/29/24) Abdominal aortic aneurysm (AAA) 7.9 cm s/p EVAR with two bifurcated endograft and a right to left femo rofemoral bypass 10/29/24 Prediabetes CAD (coronary artery disease) 4 vessel CABG 2014 SDAT (senile dementia of Alzheimer's type) per daughter "not really that bad" Pulmonary emphysema dtr denies "mother has no breathing problems" Carotid artery plaque hx, <50% carotid stenosis per 2021 carotid doppler Acute cholecystitis Admitted to [facility] 10/12/24-10/23/24; s/p cholecystostomy tube placed 10/14/24>still intact on 03/18/25 Not a surgical candidate for cholecystectomy until AAA repaired Hx of sepsis d/c [facility] 10/16/24 "infection coming from gallbladder, finished abx tx 10/23/24" Mild cognitive impairment "forgetful, and in the early stages of dementia" per dtr History of hypertension Hx of hyperlipidemia Myocardial Infarction per dtr "her mom didn't have a heart attack, abnormal stress test in 2014" Seasonal allergies Chronic kidney disease, stage 3 Pulmonary nodule, right monitoring? Surgical History Hx laparoscopic cholecystectomy (03/27/25) Laparoscopic Cholecystectomy with Removal of Her Percutaneous Cholecystectomy Tube - Kirk Fernandes DO History of tooth extraction History of cataract surgery right/left Status post endovascular aneurysm repair (EVAR) (10/29/24) Unilimb Endovascular Aortic Aneurysm Repair using Two Bifurcated endografts, Femoral To Femoral bypass right to left - Christoph Faye MD History of postoperative nausea and vomiting Family history of reaction to anesthesia dtr-N/V and shaking after hysterectomy History of surgical removal of skin lesion (01/13/22) Excision of Skin Lesion on Back- Tae Lopez DO, FACS History of dilatation and curettage ~1989 History of cardiac cath 2014 at [facility] --> transferred to [facility] History of cataract surgery right/left 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, 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, saphenous growing graft to OM2, saphenous vein graft to RCA-January 2015, [facility] Family History Brother Aortic aneurysm Hypertension Father Coronary heart disease Sister Hypertension Mother Diabetes Other No family history of adverse response to anesthesia Denies family history of Ovarian cancer Prostate cancer Breast cancer Colorectal cancer Social History Smoking Status: Former smoker Tobacco Type: Cigarettes Age Started Using Tobacco: 0; packs per day: 0; Cigarettes Per Day: 20; Second Hand Exposure: No; Do You Dip or Chew Tobacco: No; Hx Alcohol Use: No Hx Substance Use: No Preferred Language: German Communication Ability: Impaired Visual Impairment: No Limitations Hearing Ability: Normal Gunsmith Apprentice Required: No Beliefs That Will Affect Care: None marital status: / Current Living Situation: Family Current Living Situation Comment: lives with daughter>Natty (cares for mother/other daughter assists) current occupational status: retired current occupation: Housework/cleaning How many Children do You have: 5 Other Information That Helps Us Care for You: No Feels Safe at Home: Yes Safety Concerns: Feels Safe At This Time Childhood Exposure to Second-Hand Smoke: No Diet: regular caffeine: No during the past year weight has: decreased > 10 lbs Dental Care, Regularly: No Physical Activity Frequency: Does not Exercise Seatbelt Use: always Sunscreen Use: No Assistive Devices: Cane, Denture - Upper, Denture - Lower and Glasses Review of Systems Review of Systems: All systems reviewed & are unremarkable except as noted in HPI & below Physical Exam Constitutional: + ill appearing and + lethargic Respiratory: normal respiratory effort, lungs clear to auscultation Cardiovascular: RRR, no murmur, no edema Skin: no rashes, warm and dry Psychiatric: Orientation: alert and oriented x 3 Results & Data Vital Signs (Past 12 Hours) Vital Signs Temp Pulse Pulse Resp BP Pulse Ox O2 Del Method 04/01/25 08:16 36.8 C 76 17 131/61 94 Room Air 04/01/25 07:22 72 04/01/25 02:14 36.4 C L 78 18 104/62 96 Room Air 03/31/25 23:21 37.1 C 88 18 108/58 L 94 Room Air
[2025-04-01] MEDS: METOPROLOL SUCC 25MG EXT REL TAB PO ONE (10:49)
[2025-04-01 11:58] LABS: Hematocrit (blood only) 26.6 % (37.0-47.0); Hemoglobin 8.5 g/dL (12.0-16.0)
--- NOTE | 2025-04-01 12:38 | Hospitalist Progress Note ---
Date of Service April 01, 2025 Assessment & Plan (1) Post op infection: (2) JUNE (acute kidney injury): (3) Elevated troponin: (4) Nausea & vomiting: (5) H/O insertion of cholecystostomy tube: (6) SDAT (senile dementia of Alzheimer's type): (7) Carotid artery plaque: (8) Pulmonary emphysema: (9) PAD (peripheral artery disease): (10) Prediabetes: Plan #Vomiting #POD#5 laparoscopic cholecystectomy perc harry tube removal #Abdominal pain, abnormal CT findings #Lactic acidemia #Elevated procalcitonin -No jesus signs of abdominal peritonitis, surgical consultation completed, clinical exam improving, lactate has normalized -Continue Zosyn, OK to advance diet per surgery, no plan for OR at this time -MRSA screen positive add vanco until cultures return. #ACS #S/P EVAR #CABGx4 #Known CAD - Elevated troponin, extensive CAD Hx, s/p bypass x4, EVAR in October, now with dynamic T-wave changes, have now stabilized. - No chest pain or ongoing symptoms, markers downtrending, per cardiology she does appear to have had a cardiac event, now on the recovery side - Cardiology consult, DC heparin, start ASA, appreciate cardiology recs/mgmt #Anemia -Hematoma on CT, hgb stable at 8.5 this AM down from 11.5 baseline, thinners as above #JUNE - Baseline creatinine 0.9, currently 1.9, making good urine - Clinically consistent with hypovolemia, fluid resuscitation per emergency department and sepsis protocol - Serial monitoring #Pulmonary nodule - Noted on CT, outpatient follow-up #Senile Alzheimer's dementia - Mild to moderate,-high risk for cognitive decompensation/sundowning - Family at bedside, encouraged gentle redirection, minimize sedatives #Hypertension - Stable blood pressure remains at goal, continue antihypertensives #Hyperlipidemia -Statin #FEN -N.p.o., NS at 100 cc/h #CODE STATUS -DNR/DNI per her wishes, confirmed with the daughter over the telephone at the time of admission Admission and Anticipated Discharge Date Admission Date: March 31, 2025 Subjective Clinically doing better this morning. Abdominal pain has improved significantly. She denies any chest pain shortness of breath or diaphoresis. No PND or orthopnea. No more nausea or vomiting. Her mood and affect were bright this morning. She was appropriately interactive and pleasant this morning. No events per nursing staff. Briefly discussed with Nina her daughter at the troponin results, her current clinical examination and current plan as of this morning. Physical Exam Physical Exam: Cardiovascular: tachycardia with regular rhythm. No murmurs, rubs or gallops. Intact distal pulses. Pulmonary/Chest: No respiratory distress. Breath sounds clear and equal bilaterally. No wheezes or rales. Abdominal: Mild tenderness to palpation mostly on the right, no distention or rigidity, no rebound or referral. Musculoskeletal: 1+ pitting edema bilaterally,no tenderness or deformity noted. Skin: Warm and dry. No rash, erythema, pallor or cyanosis Psychiatric: Appropriate mood and affect for situation. Neurological: Alert and keenly responsive. confused, responses often do not follow with questioning, CN II-XII grossly intact, moving all extremities equally and fully. Results & Data Results & Data Vital Signs (Past 12 Hours) Vital Signs Temp Pulse Pulse Resp BP Pulse Ox O2 Del Method 04/01/25 10:53 36.9 C 77 24 126/56 L 94 Room Air 04/01/25 08:16 36.8 C 76 17 131/61 94 Room Air 04/01/25 07:22 72 04/01/25 02:14 36.4 C L 78 18 104/62 96 Room Air Laboratory Results 03/31/25 12:32 Aerobic Blood Culture - Pending Blood Anaerobic Blood Culture - Pending 03/31/25 12:30 Aerobic Blood Culture - Pending Blood Anaerobic Blood Culture - Pending 04/01/25 04/01/25 04/01/25 Unknown 11:38 07:25 WBC RBC Hgb 8.5 L Hct 26.6 L MCV MCH MCHC RDW Std Deviation RDW Coeff of Lea Plt Count MPV Immature Gran % (Auto) Neut % (Auto) Lymph % (Auto) Culberson % (Auto) Eos % (Auto) Baso % (Auto) Neut # (Auto) Lymph # (Auto) Culberson # (Auto) Eos # (Auto) Baso # (Auto) Immature Gran # (Auto) APTT PTT Ratio Heparin Anti-Xa, Unfract < 0.10 L Sodium Potassium Chloride Carbon Dioxide Anion Gap BUN Creatinine Est Cr Clr Drug Dosing eGFR BUN/Creatinine Ratio Glucose Lactate Calcium Magnesium Total Bilirubin AST ALT Alkaline Phosphatase Troponin I High Sens 6721.8 H* D C-Reactive Protein Total Protein Albumin Globulin Albumin/Globulin Ratio Procalcitonin Urine Color Dark Yellow Urine Appearance Cloudy A Urine pH 5.0 Ur Specific Irving > 1.045 H Urine Protein 2+ H Urine Glucose (UA) Negative Urine Ketones Trace H Urine Blood Negative Urine Nitrite Negative Urine Bilirubin Negative Urine Urobilinogen Negative Ur Leukocyte Esterase Trace H Urine WBC (Auto) 6-10 H Urine RBC (Auto) 3-5 H U Hyaline Cast (Auto) 3-5 H U Epithel Cells (Auto) 6-10 H Urine Bacteria (Auto) None Seen Urine Comment SARS-CoV-2 (PCR) Influenza Type A (PCR) Influenza Type B (PCR) RSV (RT-PCR) Blood Type Antibody Screen Crossmatch 04/01/25 03/31/25 03/31/25 04:46 Unknown 22:38 WBC 9.93 RBC 2.83 L Hgb 8.3 L Hct 25.5 L MCV 90.1 MCH 29.3 MCHC 32.5 RDW Std Deviation 49.0 H RDW Coeff of Lea 14.9 H Plt Count 160 MPV 10.5 Immature Gran % (Auto) 0.6 Neut % (Auto) 79.1 Lymph % (Auto) 10.4 Culberson % (Auto) 7.7 Eos % (Auto) 1.9 Baso % (Auto) 0.3 Neut # (Auto) 7.86 H Lymph # (Auto) 1.03 L Culberson # (Auto) 0.76 H Eos # (Auto) 0.19 Baso # (Auto) 0.03 Immature Gran # (Auto) 0.06 APTT PTT Ratio Heparin Anti-Xa, Unfract Sodium 141 Potassium 3.8 Chloride 109 H Carbon Dioxide 24 Anion Gap 8 BUN 31 H Creatinine 1.88 H Est Cr Clr Drug Dosing 19.6 eGFR 26.04 BUN/Creatinine Ratio 16.5 Glucose 86 Lactate Calcium 7.8 L Magnesium 1.8 Total Bilirubin 1.0 AST 33 ALT 19 Alkaline Phosphatase 60 Troponin I High Sens 8557.0 H* D C-Reactive Protein 24.40 H Total Protein 5.0 L Albumin 2.8 L Globulin 2.2 L Albumin/Globulin Ratio 1.3 Procalcitonin 36.30 H Urine Color Urine Appearance Urine pH Ur Specific Irving Urine Protein Urine Glucose (UA) Urine Ketones Urine Blood Urine Nitrite Urine Bilirubin Urine Urobilinogen Ur Leukocyte Esterase Urine WBC (Auto) Urine RBC (Auto) U Hyaline Cast (Auto) U Epithel Cells (Auto) Urine Bacteria (Auto) Urine Comment SARS-CoV-2 (PCR) NEGATIVE Influenza Type A (PCR) Negative Influenza Type B (PCR) Negative RSV (RT-PCR) Negative Blood Type A Positive Antibody Screen NEGATIVE Crossmatch See Detail 03/31/25 03/31/25 03/31/25 20:26 16:15 13:48 WBC 10.93 H RBC 3.12 L Hgb 9.2 L Hct 27.7 L MCV 88.8 MCH 29.5 MCHC 33.2 RDW Std Deviation 47.9 H RDW Coeff of Lea 15.0 H Plt Count 146 MPV 10.0 Immature Gran % (Auto) 0.4 Neut % (Auto) 81.9 Lymph % (Auto) 8.8 Culberson % (Auto) 8.4 Eos % (Auto) 0.1 Baso % (Auto) 0.4 Neut # (Auto) 8.96 H Lymph # (Auto) 0.96 L Culberson # (Auto) 0.92 H Eos # (Auto) 0.01 Baso # (Auto) 0.04 Immature Gran # (Auto) 0.04 APTT 33 H PTT Ratio 1.2 Heparin Anti-Xa, Unfract Sodium 140 Potassium 3.8 Chloride 108 H Carbon Dioxide 25 Anion Gap 7 BUN 30 H Creatinine 1.88 H Est Cr Clr Drug Dosing 19.6 eGFR 26.04 BUN/Creatinine Ratio 16.0 Glucose 115 H Lactate 1.5 Calcium 8.3 L Magnesium Total Bilirubin 1.2 H AST 28 ALT 21 Alkaline Phosphatase 69 Troponin I High Sens 5749.8 H* D 1329.2 H* D 867.4 H* D C-Reactive Protein Total Protein 5.7 L Albumin 2.9 L Globulin 2.8 Albumin/Globulin Ratio 1.0 Procalcitonin Urine Color Urine Appearance Urine pH Ur Specific Irving Urine Protein Urine Glucose (UA) Urine Ketones Urine Blood Urine Nitrite Urine Bilirubin Urine Urobilinogen Ur Leukocyte Esterase Urine WBC (Auto) Urine RBC (Auto) U Hyaline Cast (Auto) U Epithel Cells (Auto) Urine Bacteria (Auto) Urine Comment SARS-CoV-2 (PCR) Influenza Type A (PCR) Influenza Type B (PCR) RSV (RT-PCR) Blood Type Antibody Screen Crossmatch 03/31/25 11:53 WBC RBC Hgb Hct MCV MCH MCHC RDW Std Deviation RDW Coeff of Lea Plt Count MPV Immature Gran % (Auto) Neut % (Auto) Lymph % (Auto) Culberson % (Auto) Eos % (Auto) Baso % (Auto) Neut # (Auto) Lymph # (Auto) Cul[place]on # (Auto) Eos # (Auto) Baso # (Auto) Immature Gran # (Auto) APTT PTT Ratio Heparin Anti-Xa, Unfract Sodium Potassium Chloride Carbon Dioxide Anion Gap BUN Creatinine Est Cr Clr Drug Dosing eGFR BUN/Creatinine Ratio Glucose Lactate 3.7 H* Calcium Magnesium Total Bilirubin AST ALT Alkaline Phosphatase Troponin I High Sens C-Reactive Protein Total Protein Albumin Globulin Albumin/Globulin Ratio Procalcitonin Urine Color Urine Appearance Urine pH Ur Specific Irving Urine Protein Urine Glucose (UA) Urine Ketones Urine Blood Urine Nitrite Urine Bilirubin Urine Urobilinogen Ur Leukocyte Esterase Urine WBC (Auto) Urine RBC (Auto) U Hyaline Cast (Auto) U Epithel Cells (Auto) Urine Bacteria (Auto) Urine Comment SARS-CoV-2 (PCR) Influenza Type A (PCR) Influenza Type B (PCR) RSV (RT-PCR) Blood Type Antibody Screen Crossmatch PG Care Time/CCT Total # of Minutes Spent Total Time Spent with Patient: Total time spent is greater than 50% in coordination of care (as documented) at patient's floor/unit and/or counseling patient: Coding Level of Care Code 87384 SUB INP/OBS CARE 3/50MIN Diagnoses Post op infection T81.40XA JUNE (acute kidney injury) N17.9 Elevated troponin R79.89 Nausea & vomiting R11.2 H/O insertion of cholecystostomy tube Z98.890 SDAT (senile dementia of Alzheimer's type) G30.1; F02.80 Atherosclerosis of both carotid arteries I65.23 Laterality: bilateral Pulmonary emphysema J43.9 PAD (peripheral artery disease) I73.9 Prediabetes R73.03 (7) Carotid artery plaque Laterality: bilateral Qualified Code(s): I65.23 - Occlusion and stenosis of bilateral carotid arteries
[2025-04-01] MEDS ORDERED: VANCOMYCIN CONSULT ACTIVE PRN ×2 (13:23)
[2025-04-01] MEDS: ASPIRIN 81 MG ECTAB PO SCH (14:00)
[2025-04-01] MEDS: VANCOMYCIN HCL 1,250 MG in SODIUM CHLORIDE 0.9% 250 ML IV ONE (14:02)
[2025-04-01] MEDS: VANCOMYCIN HCL / NSS 1,000 MG/270 ML BAG IV SCH (14:16)
--- NOTE | 2025-04-01 14:58 | Pharmacy Report ---
Pharmacy PK ABX Note - Date of Service April 01, 2025 - Assessment and Plan Assessment 85 year old F receiving vancomycin and piperacillin/tazobactam for empiric treatment (potential post-op infection s/p cholecystectomy). Pertinent microbiologic data includes: blood cultures x2 pending. * Cholecystectomy on 03/27 * Presented to hospital 03/31 with chief complaint of chills, vomiting * No BM since surgery, passing gas * Afebrile so far * WBC 9.93 today from 12.94 on arrival * SCr 1.88 (estimated CrCl 19.6 mL/min) - baseline around 0.8-1.0 from October 2024 - JUNE Day #1 of vancomycin therapy. Plan Vancomycin * Loading dose: 1250 mg IV x 1 (given 04/01 @1400) * Maintenance dose: given current JUNE, will dose vancomycin by level * Random level ordered for: 04/02/25 with AM labs Pharmacy will continue to follow and will adjust dose/frequency as necessary. Thank you. Pharmacy has transitioned to AUC monitoring for vancomycin. AUC/DOMINGUEZ is the preferred PK/PD target and is associated with decreased risk of nephrotoxicity compared to traditional trough targets.
[2025-04-01 15:56] LABS: ANTI-Xa, UFH(UnfractionatedHep 0.14 IU/ml (0.3-0.7)
[2025-04-01 18:25] LABS: Hematocrit (blood only) 27.1 % (37.0-47.0); Hemoglobin 8.8 g/dL (12.0-16.0)
--- NOTE | 2025-04-01 18:47 | XCELERA ---
[id number] [id number]
[2025-04-02 06:05] LABS: Hematocrit (blood only) 25.5 % (37.0-47.0); Hemoglobin 8.2 g/dL (12.0-16.0); Immature Granulocytes # (auto) 0.11 K/uL (0.01-0.20); Immature Granulocytes % (auto) 1.1 %; Mean Corpuscular Hemoglobin 29.1 pg (25.0-34.0); Mean Corpuscular Volume 90.4 fL (80.0-100.0); Platelet Count 164 K/uL (130-400); RDW Standard Deviation 49.4 fL (36.4-46.3); Red Blood Count 2.82 M/uL (4.20-5.40); White Blood Count 9.91 K/ul (4.8-10.8)
[2025-04-02 06:24] LABS: Alanine Aminotransferase 15.0 U/L (7-52); Albumin Globulin Ratio 1.1 (0.9-2); Albumin Level 2.6 gm/dl (3.4-5.0); Alkaline Phosphatase 63.0 U/L (34-104); Anion Gap 7.0 (3-11); Bilirubin,Total 0.6 mg/dl (0.2-1.0); Blood Urea Nitrogen 26.0 mg/dl (6-23); Calcium 7.6 mg/dl (8.6-10.3); Carbon Dioxide 23.0 mmol/L (21-32); Chloride 113.0 mmol/L (98-107); Creatinine Clr Calc Pharmacy 22.7 ml/min; Globulin 2.3 gm/dl (2.5-4.0); Glucose 81.0 mg/dl (70-99(Fasting)); Magnesium 1.8 mg/dl (1.7-2.4); Potassium 3.7 mmol/L (3.5-5.1); Sodium 143.0 mmol/L (136-145); Total Protein 4.9 gm/dl (6.0-8.3)
[2025-04-02] MEDS: METOPROLOL SUCC 50MG EXT REL TAB PO SCH (07:46)
--- NOTE | 2025-04-02 08:28 | Electrocardiogram Report ---
Test Reason : Blood Pressure : */* mmHG Vent. Rate : 104 BPM Atrial Rate : * BPM P-R Int : * ms QRS Dur : 112 ms QT Int : 358 ms P-R-T Axes : * -18 -35 degrees QTcB Int : 470 ms Accelerated Junctional rhythm Inferior infarct (cited on or before 02-Feb-2015) early transition-consider posterio extension T wave abnormality, consider lateral ischemia Abnormal ECG When compared with ECG of 31-Mar-2025 11:36, (unconfirmed) PACs no longer present Confirmed by Hedy Carlos ([id number]) on 04/02/2025 8:27:50 AM Referred By: Kirk Fernandes Confirmed By: Hedy Carlos
--- NOTE | 2025-04-02 08:29 | Electrocardiogram Report ---
Test Reason : Blood Pressure : */* mmHG Vent. Rate : 106 BPM Atrial Rate : 107 BPM P-R Int : * ms QRS Dur : 114 ms QT Int : 360 ms P-R-T Axes : * -18 -32 degrees QTcB Int : 478 ms NSR with frequent PACs Minimal voltage criteria for LVH, may be normal variant ( Jasbir product ) Inferior infarct (cited on or before 02-Feb-2015) T wave abnormality, consider lateral ischemia Abnormal ECG When compared with ECG of 28-Feb-2025 10:03, HR has increased, PACs now present Confirmed by Hedy Carlos (Yamini) on 04/02/2025 8:29:17 AM Referred By: Kirk Fernandes Confirmed By: Hedy Carlos
--- NOTE | 2025-04-02 08:32 | Electrocardiogram Report ---
Test Reason : Blood Pressure : */* mmHG Vent. Rate : 85 BPM Atrial Rate : 85 BPM P-R Int : 156 ms QRS Dur : 110 ms QT Int : 418 ms P-R-T Axes : 65 -4 -15 degrees QTcB Int : 497 ms Normal sinus rhythm Inferior infarct (cited on or before 02-Feb-2015) T wave abnormality, consider anterior ischemia QTcB >= 480 msec Abnormal ECG When compared with ECG of 31-Mar-2025 15:06, (unconfirmed) HR has decreased Confirmed by Hedy Carlos (Yamini) on 04/02/2025 8:31:32 AM Referred By: Kirk Fernandes Confirmed By: Hedy aCrlos
--- NOTE | 2025-04-02 08:35 | Cardiology Progress Note ---
Date of Service April 02, 2025 Assessment & Plan (1) Elevated troponin: (2) Abnormal ECG: (3) Sepsis: Plan Past cardiac history: 1.Echo 10/2024 - Akinesis of the basal inferoseptum, basal inferior and basal-mid inferolateral LV dawson, EF 50-55%, Moderate concentric left ventricular hypertrophy 2. 7.9 cm infrarenal abdominal aortic aneurysm s/p PEVAR 10/2024 3. HTN 4. CAD s/p coronary artery bypass grafting in 2014 [facility] [place] 5. HLD Ms. eRdd does appear to have experienced a cardiac event but as her troponin is downtrending and her EKG has also improved, she appears to be on the other side of it. She is also not having any anginal symptoms. Her EKG on March 31 when she got to the emergency department did show ST segments in the lateral leads that were starting to elevate/become biphasic. Her EKG a few hours later showed resolution of the T wave elevations, now with T wave inversions. The Q waves with T wave inversions in the inferior leads are chronic and can be seen in earlier EKGs and correlate with the known prior wall motion abnormalities in her basal inferoseptum, basal inferior and basal mid inferior lateral LV dawson. Repeat echocardiogram today does not show new wall motion abnormalities and EF remains 50-55%. Given her drop in hgb of 3g with possible hematoma on imaging, her heparin should be discontinued. The anemia itself along with sepsis is contributing to the ischemic demand of her heart. She should be placed on aspirin. Plavix can be held for now. The drop in hgb, the infection, as well as stable echo and resolving troponin make the risk of cardiac catheterization outweigh the benefit. She is not in a position at present to tolerate DAPT should she need a stent. I have increased her metoprolol to 50 mg from 25. Her case was discussed with the hospitalist as well as Dr. Carlos and Dr. Mendez. Admission and Anticipated Discharge Date Admission Date: March 31, 2025 Subjective Clinically doing better this morning. Abdominal pain has improved significantly. She denies any chest pain shortness of breath or diaphoresis. No PND or orthopnea. No more nausea or vomiting. Her mood and affect were bright this morning. She was appropriately interactive and pleasant this morning. No events per nursing staff. Briefly discussed with Nina her daughter at the troponin results, her current clinical examination and current plan as of this morning. Review of Systems Review of Systems: All systems reviewed & are unremarkable except as noted in HPI & below Results & Data Vital Signs (Past 12 Hours) Vital Signs Temp Pulse Resp BP Pulse Ox O2 Del Method 04/02/25 08:15 37.5 C 60 18 153/77 H 92 Room Air 04/02/25 02:21 37.0 C 81 18 120/65 91 Room Air 04/01/25 23:32 36.8 C 83 18 124/62 93 Room Air Laboratory Results Abnormal lab results 04/01/25 04/01/25 04/01/25 Range/Units 11:38 14:16 18:02 RBC (4.20-5.40) M/uL Hgb 8.5 L 8.8 L (12.0-16.0) g/dL Hct 26.6 L 27.1 L (37.0-47.0) % RDW Std Deviation (36.4-46.3) fL RDW Coeff of Lea (11.5-14.5) % Neut # (Auto) (1.40-6.50) K/uL Lymph # (Auto) (1.20-3.40) K/uL [place] # (Auto) (0.11-0.59) K/uL Eos # (Auto) (0.00-0.50) K/uL Heparin Anti-Xa, Unfract 0.14 L (0.3-0.7) IU/ml Chloride (98-107) mmol/L BUN (6-23) mg/dl Creatinine (0.6-1.2) mg/dl Calcium (8.6-10.3) mg/dl Troponin I High Sens 4456.2 H* D 4271.1 H* (0-14) pg/ml C-Reactive Protein (0-0.5) mg/dl Total Protein (6.0-8.3) gm/dl Albumin (3.4-5.0) gm/dl Globulin (2.5-4.0) gm/dl Random Vancomycin (10-20) mcg/ml 04/01/25 04/02/25 04/02/25 Range/Units 23:19 02:20 05:22 RBC 2.82 L (4.20-5.40) M/uL Hgb 8.2 L (12.0-16.0) g/dL Hct 25.5 L (37.0-47.0) % RDW Std Deviation 49.4 H (36.4-46.3) fL RDW Coeff of Lea 14.9 H (11.5-14.5) % Neut # (Auto) 7.45 H (1.40-6.50) K/uL Lymph # (Auto) 0.96 L (1.20-3.40) K/uL [place] # (Auto) 0.72 H (0.11-0.59) K/uL Eos # (Auto) 0.65 H (0.00-0.50) K/uL Heparin Anti-Xa, Unfract (0.3-0.7) IU/ml Chloride 113 H (98-107) mmol/L BUN 26 H (6-23) mg/dl Creatinine 1.62 H (0.6-1.2) mg/dl Calcium 7.6 L (8.6-10.3) mg/dl Troponin I High Sens 3659.5 H* 4019.3 H* (0-14) pg/ml C-Reactive Protein 22.08 H (0-0.5) mg/dl Total Protein 4.9 L (6.0-8.3) gm/dl Albumin 2.6 L (3.4-5.0) gm/dl Globulin 2.3 L (2.5-4.0) gm/dl Random Vancomycin 9.0 L (10-20) mcg/ml Medications Administered Current Inpatient Medications Acetaminophen (Acetaminophen 325 Mg Tab) 650 mg PO Q4H PRN PRN Reason: Pain or Fever Stop: 04/30/25 18:50 Aspirin (Aspirin 81 Mg Ectab) 81 mg PO QAM [facility] Stop: 05/01/25 12:59 Last Admin: 04/02/25 07:46 Dose: 81 mg Sodium Chloride (Nss) 1,000 mls @ 100 mls/hr IV .Q10H [facility] Stop: 04/03/25 18:59 Last Admin: 04/02/25 01:59 Dose: 100 mls/hr Piperacillin Sod/Tazobactam Sod (Zosyn) 4.5 gm in 100 mls @ 25 mls/hr IV Q12H [facility]; Protocol Stop: 04/10/25 21:59 Last Infusion: 04/02/25 03:14 Dose: Infused Metoprolol Succinate (Metoprolol Succ 50mg Ext Rel Tab) 50 mg PO QAM [facility] Stop: 05/02/25 08:59 Last Admin: 04/02/25 07:46 Dose: 50 mg Mirtazapine (Mirtazapine Tab 15 Mg Tab) 15 mg PO HS PRN PRN Reason: Sleep Stop: 04/30/25 18:50 Miscellaneous Information (Vancomycin Consult Active) 1 each N/A UD PRN PRN Reason: Consult Stop: 05/01/25 13:22 Morphine Sulfate (Morphine Sulfate 2 Mg/Ml Carp) 2 mg IV Q2H PRN PRN Reason: Pain Stop: 04/14/25 18:50 Ondansetron HCl (Ondansetron Inj 2 Mg/Ml 2 Ml Vial) 4 mg IV Q6H PRN PRN Reason: Nausea Stop: 04/30/25 18:50 Pantoprazole Sodium (Pantoprazole 40 Mg Tab) 40 mg PO DAILY [facility] Stop: 05/01/25 12:59 Last Admin: 04/02/25 07:46 Dose: 40 mg
[2025-04-02] MEDS: VANCOMYCIN HCL / NSS 1,000 MG/270 ML BAG IV ONE (09:47)
--- NOTE | 2025-04-02 09:53 | Surgery Progress Note ---
<Statement entered by Luisana Vail MD - 04/03/25 09:21> I independently saw and examined the patient, and I agree with the assessment and plan of care. Date of Service April 02, 2025 Assessment & Plan (1) Nausea & vomiting: Plan: Pt here s/p lap harry on 03/27 with nausea/vomiting and abdominal pain CT scan x2 show some pneumoperitoneum and small fluid collections in surgical bed, likely hematoma and expected post op findings WBC 9.9, Hbg 8.2 (8.8). Vitals are stable. Troponin being watched and trended 4019 today, cardiology on board On clears. Remains with some abdominal discomfort to palpation. Would continue IV abx for now while in house May be able to advance to fulls, will check up on later this AM May benefit from bowel regimen as no BM since before surgery Encourage OOB/ambulation, IS/pulm toilet Following closely Admission and Anticipated Discharge Date Admission Date: March 31, 2025 Subjective Patient sleepy, but arousable and communicative. Reports abdominal pain with palpation, says slow improvement. Denies nausea/vomiting. Passing some gas. No BM yet. Physical Exam Physical Exam: sleeping, but arousable and communicative Respiratory: normal respiratory effort Gastrointestinal (Abdomen): Inspection/Auscultation: + abdominal surgical incision (c/d/i with some bruising across abdomen mostly around lap sites) Percussion/Palpation: + abdomen tender (tender across bilateral upper/mid abdomen to palpation ) and abdomen soft Results & Data Vital Signs (Past 12 Hours) Vital Signs Temp Pulse Resp BP Pulse Ox O2 Del Method 04/02/25 08:15 99.5 F 60 18 153/77 H 92 Room Air 04/02/25 02:21 98.6 F 81 18 120/65 91 Room Air 04/01/25 23:32 98.2 F 83 18 124/62 93 Room Air PG Care Time/CCT Total # of Minutes Spent Total Time Spent with Patient: Total time spent is greater than 50% in coordination of care (as documented) at patient's floor/unit and/or counseling patient: Coding Level of Care Code 42673 Post Operative Follow-Up Diagnoses Nausea & vomiting R11.2
[2025-04-02] MEDS: POLYETHYLENE (MIRALAX) 17 GM PACK PO SCH (12:06)
--- NOTE | 2025-04-02 14:02 | Pharmacy Report ---
Pharmacy PK ABX Note - Date of Service April 02, 2025 - Assessment and Plan Assessment 04/02 * WBC normal. Blood cultures pending. * Random level 9.0 mcg/ml- will redose * Continue dosing by levels for now- SCr improved but not significantly (1.88--> 1.66)- reassess in AM for continuation 04/01 85 year old F receiving vancomycin and piperacillin/tazobactam for empiric treatment (potential post-op infection s/p cholecystectomy). Pertinent microbiologic data includes: blood cultures x2 pending. * Cholecystectomy on 03/27 * Presented to hospital 03/31 with chief complaint of chills, vomiting * No BM since surgery, passing gas * Afebrile so far * WBC 9.93 today from 12.94 on arrival * SCr 1.88 (estimated CrCl 19.6 mL/min) - baseline around 0.8-1.0 from October 2024 - JUNE Plan Vancomycin * Loading dose: 1250 mg IV x 1 (given 04/01 @1400) * Maintenance dose: given current JUNE, will dose vancomycin by level * Redose with 1000 mg x 1 today (@ 0947) * Random level ordered for: 04/03/25 with AM labs Pharmacy will continue to follow and will adjust dose/frequency as necessary. Thank you. Pharmacy has transitioned to AUC monitoring for vancomycin. AUC/DOMINGUEZ is the preferred PK/PD target and is associated with decreased risk of nephrotoxicity compared to traditional trough targets.
[2025-04-02] MEDS: PIPERACILLIN/TAZOBACTAM 4.5 GM/100 ML BAG IV SCH (17:53)
[2025-04-03 06:24] LABS: Hematocrit (blood only) 26.3 % (37.0-47.0); Hemoglobin 8.5 g/dL (12.0-16.0); Immature Granulocytes # (auto) 0.09 K/uL (0.01-0.20); Immature Granulocytes % (auto) 0.9 %; Mean Corpuscular Hemoglobin 29.1 pg (25.0-34.0); Mean Corpuscular Volume 90.1 fL (80.0-100.0); Platelet Count 185 K/uL (130-400); RDW Standard Deviation 49.5 fL (36.4-46.3); Red Blood Count 2.92 M/uL (4.20-5.40); White Blood Count 9.53 K/ul (4.8-10.8)
[2025-04-03 06:41] LABS: Anion Gap 8.0 (3-11); Blood Urea Nitrogen 18.0 mg/dl (6-23); Calcium 7.5 mg/dl (8.6-10.3); Carbon Dioxide 21.0 mmol/L (21-32); Chloride 114.0 mmol/L (98-107); Creatinine Clr Calc Pharmacy 28.5 ml/min; Glucose 104.0 mg/dl (70-99(Fasting)); Potassium 3.2 mmol/L (3.5-5.1); Sodium 143.0 mmol/L (136-145)
--- NOTE | 2025-04-03 07:42 | Pharmacy Report ---
Pharmacy PK ABX Note - Date of Service April 03, 2025 - Assessment and Plan Assessment 04/03: * WBC 9.53 (from 9.91 yesterday) * Afebrile * SCr 1.29 (estimated CrCl 28.5) - much improved from yesterday, still a bit above baseline * Blood cultures NGTD after 48 hours * Continuing vancomycin for now - gave 1000mg this morning * Level ordered with 04/04 AM labs * If SCr continues to improve back to baseline, may be able to schedule vancomycin if continuing 04/02: * WBC normal. Blood cultures pending. * Random level 9.0 mcg/ml- will redose * Continue dosing by levels for now- SCr improved but not significantly (1.88--> 1.66)- reassess in AM for continuation 04/01: 85 year old F receiving vancomycin and piperacillin/tazobactam for empiric treatment (potential post-op infection s/p cholecystectomy). Pertinent microbiologic data includes: blood cultures x2 pending. * Cholecystectomy on 03/27 * Presented to hospital 03/31 with chief complaint of chills, vomiting * No BM since surgery, passing gas * Afebrile so far * WBC 9.93 today from 12.94 on arrival * SCr 1.88 (estimated CrCl 19.6 mL/min) - baseline around 0.8-1.0 from October 2024 - JUNE Plan Vancomycin * Loading dose: 1250 mg IV x 1 (given 04/01 @1400) * Maintenance dose: given current JUNE, will dose vancomycin by level * Redose with 1000 mg x 1 today (@ 0947) * Random level ordered for: 04/03/25 with AM labs Pharmacy will continue to follow and will adjust dose/frequency as necessary. Thank you. Pharmacy has transitioned to AUC monitoring for vancomycin. AUC/DOMINGUEZ is the preferred PK/PD target and is associated with decreased risk of nephrotoxicity compared to traditional trough targets.
--- NOTE | 2025-04-03 08:22 | Cardiology Progress Note ---
Date of Service April 03, 2025 Assessment & Plan (1) Elevated troponin: (2) Abnormal ECG: (3) Sepsis: Plan Past cardiac history: 1.Echo 10/2024 - Akinesis of the basal inferoseptum, basal inferior and basal-mid inferolateral LV dawson, EF 50-55%, Moderate concentric left ventricular hypertrophy 2. 7.9 cm infrarenal abdominal aortic aneurysm s/p PEVAR 10/2024 3. HTN 4. CAD s/p coronary artery bypass grafting in [place] [facility] [place] 5. HLD Ms. Redd does appear to have experienced a cardiac event but as her troponin is downtrending and her EKG has also improved, she appears to be on the other side of it. She is also not having any anginal symptoms. Her EKG on March 31 when she got to the emergency department did show ST segments in the lateral leads that were starting to elevate/become biphasic. Her EKG a few hours later showed resolution of the T wave elevations, now with T wave inversions. The Q waves with T wave inversions in the inferior leads are chronic and can be seen in earlier EKGs and correlate with the known prior wall motion abnormalities in her basal inferoseptum, basal inferior and basal mid inferior lateral LV dawson. Repeat echocardiogram today does not show new wall motion abnormalities and EF remains 50-55%. Given her drop in hgb of 3g with possible hematoma on imaging, her heparin should be discontinued. The anemia itself along with sepsis is contributing to the ischemic demand of her heart. She should be placed on aspirin. Plavix can be held for now. The drop in hgb, the infection, as well as stable echo and resolving troponin make the risk of cardiac catheterization outweigh the benefit. She is not in a position at present to tolerate DAPT should she need a stent. I have increased her metoprolol to 50 mg from 25. Her case was discussed with the hospitalist as well as Dr. Carlos and Dr. Mendez. Admission and Anticipated Discharge Date Admission Date: March 31, 2025 Subjective Patient sleepy, but arousable and communicative. Reports abdominal pain with palpation, says slow improvement. Denies nausea/vomiting. Passing some gas. No BM yet. Review of Systems Review of Systems: All systems reviewed & are unremarkable except as noted in HPI & below Results & Data Vital Signs (Past 12 Hours) Vital Signs Temp Pulse Pulse Resp BP Pulse Ox O2 Del Method 12/11/25 08:00 36.8 C 80 25 H 157/61 H 94 Room Air 04/03/25 03:23 37.0 C 72 21 144/65 H 94 Room Air 04/02/25 23:27 92 H 04/02/25 23:23 36.8 C 76 24 137/66 94 Room Air Laboratory Results Abnormal lab results 04/02/25 04/03/25 Range/Units 05:22 05:54 RBC 2.92 L (4.20-5.40) M/uL Hgb 8.5 L (12.0-16.0) g/dL Hct 26.3 L (37.0-47.0) % RDW Std Deviation 49.5 H (36.4-46.3) fL RDW Coeff of Lea 14.8 H (11.5-14.5) % Neut # (Auto) 7.20 H (1.40-6.50) K/uL Lymph # (Auto) 1.12 L (1.20-3.40) K/uL [place] # (Auto) 0.67 H (0.11-0.59) K/uL Potassium 3.2 L (3.5-5.1) mmol/L Chloride 114 H (98-107) mmol/L Creatinine 1.29 H D (0.6-1.2) mg/dl Glucose 104 H (70-99(Fasting)) mg/dl Calcium 7.5 L (8.6-10.3) mg/dl Procalcitonin 23.60 H (0-0.5) ng/ml Random Vancomycin 9.7 L (10-20) mcg/ml Medications Administered Current Inpatient Medications Acetaminophen (Acetaminophen 325 Mg Tab) 650 mg PO Q4H PRN PRN Reason: Pain or Fever Stop: 04/30/25 18:50 Aspirin (Aspirin 81 Mg Ectab) 81 mg PO QAM [facility] Stop: 05/01/25 12:59 Last Admin: 04/02/25 07:46 Dose: 81 mg Sodium Chloride (Nss) 1,000 mls @ 100 mls/hr IV .Q10H [facility] Stop: 04/03/25 18:59 Last Admin: 04/03/25 07:27 Dose: 100 mls/hr Piperacillin Sod/Tazobactam Sod (Zosyn) 4.5 gm in 100 mls @ 25 mls/hr IV Q8H [facility]; Protocol Stop: 04/10/25 21:59 Last Infusion: 04/03/25 07:27 Dose: Infused Vancomycin HCl (Vancomycin Hcl / Nss) 1,000 mg in 270 mls @ 200 mls/hr IV ONE ONE Stop: 04/03/25 09:20 Metoprolol Succinate (Metoprolol Succ 50mg Ext Rel Tab) 50 mg PO QAM [facility] Stop: 05/02/25 08:59 Last Admin: 04/02/25 07:46 Dose: 50 mg Mirtazapine (Mirtazapine Tab 15 Mg Tab) 15 mg PO HS PRN PRN Reason: Sleep Stop: 04/30/25 18:50 Miscellaneous Information (Vancomycin Consult Active) 1 each N/A UD PRN PRN Reason: Consult Stop: 05/01/25 13:22 Morphine Sulfate (Morphine Sulfate 2 Mg/Ml Carp) 2 mg IV Q2H PRN PRN Reason: Pain Stop: 04/14/25 18:50 Ondansetron HCl (Ondansetron Inj 2 Mg/Ml 2 Ml Vial) 4 mg IV Q6H PRN PRN Reason: Nausea Stop: 04/30/25 18:50 Pantoprazole Sodium (Pantoprazole 40 Mg Tab) 40 mg PO DAILY [facility] Stop: 05/01/25 12:59 Last Admin: 04/02/25 07:46 Dose: 40 mg Polyethylene Glycol (Polyethylene (Miralax) 17 Gm Pack) 17 gm PO DAILY [facility] Stop: 05/02/25 11:59 Last Admin: 04/02/25 12:06 Dose: 17 gm
--- NOTE | 2025-04-03 08:38 | Electrocardiogram Report ---
Test Reason : Blood Pressure : */* mmHG Vent. Rate : 76 BPM Atrial Rate : 76 BPM P-R Int : 144 ms QRS Dur : 108 ms QT Int : 456 ms P-R-T Axes : 47 -11 269 degrees QTcB Int : 513 ms Sinus rhythm with Premature supraventricular complexes and Premature ventricular complexes or Fusion complexes Inferior infarct (cited on or before 02-Feb-2015) T wave abnormality, consider anterolateral ischemia Prolonged QT Abnormal ECG When compared with ECG of 31-Mar-2025 21:51, (unconfirmed) Fusion complexes are now Present Premature ventricular complexes are now Present Premature supraventricular complexes are now Present Inverted T waves have replaced nonspecific T wave abnormality in Lateral leads Confirmed by Hedy Carlos (Yamini) on 04/03/2025 8:38:17 AM Referred By: Kirk Fernandes Confirmed By: Hedy Carlos
[2025-04-03] MEDS: VANCOMYCIN HCL / NSS 1,000 MG/270 ML BAG IV ONE (09:11)
--- NOTE | 2025-04-03 10:10 | Surgery Progress Note ---
Date of Service April 03, 2025 Assessment & Plan (1) Hx laparoscopic cholecystectomy: Plan: doing as expected from my standpoint. would be ok to restart anticoagulation...no evidence of post op bleeding f/u with me in office as scheduled Admission and Anticipated Discharge Date Admission Date: March 31, 2025 Subjective pt seen. looks well. only complaint is some soreness at umbilical incision. manny diet. +BM. Physical Exam Physical Exam: alert. nad abd: soft. mild/expected incisional soreness. wounds look good. Results & Data Vital Signs (Past 12 Hours) Vital Signs Temp Pulse Pulse Resp BP Pulse Ox O2 Del Method 04/03/25 08:00 36.8 C 80 25 H 157/61 H 94 Room Air 04/03/25 03:23 37.0 C 72 21 144/65 H 94 Room Air 04/02/25 23:27 92 H 04/02/25 23:23 36.8 C 76 24 137/66 94 Room Air PG Care Time/CCT Total # of Minutes Spent Total Time Spent with Patient: Total time spent is greater than 50% in coordination of care (as documented) at patient's floor/unit and/or counseling patient: Coding Level of Care Code 04249 Post Operative Follow-Up Diagnoses Hx laparoscopic cholecystectomy Z90.49
--- NOTE | 2025-04-03 11:53 | Hospitalist Progress Note ---
Date of Service April 03, 2025 Assessment & Plan (1) Post op infection: (2) JUNE (acute kidney injury): (3) Elevated troponin: (4) Nausea & vomiting: (5) H/O insertion of cholecystostomy tube: (6) SDAT (senile dementia of Alzheimer's type): (7) Carotid artery plaque: (8) Pulmonary emphysema: (9) PAD (peripheral artery disease): (10) Prediabetes: Plan #Vomiting #POD#5 laparoscopic cholecystectomy perc harry tube removal #Abdominal pain, abnormal CT findings #Lactic acidemia #Elevated procalcitonin -No jesus signs of abdominal peritonitis, surgical consultation completed, clinical exam improving, lactate has normalized -Continue Zosyn, OK to advance diet per surgery, no plan for OR at this time -MRSA screen positive, vancomycin added especially with setting where she has had recent hospitalization instrumentation. No definitive cultures from the source will be available. Slow but persistent recovery. Plan for short course of vancomycin, dosing per pharmacy. - Advancing diet but still not taking adequate p.o., continue IV fluids at maintenance rate until she is taking at least half of intended goal #ACS #S/P EVAR #CABGx4 #Known CAD - Elevated troponin, extensive CAD Hx, s/p bypass x4, EVAR in October, now with dynamic T-wave changes, have now stabilized. - No chest pain or ongoing symptoms, markers downtrending, per cardiology she does appear to have had a cardiac event, now on the recovery side - Cardiology consult, DC heparin, start ASA, appreciate cardiology recs/mgmt, medical management as above. High risk catheterization outweighs benefit at this time per cardiology #Anemia -Hematoma on CT, hgb stable at 8.5 this AM down from 11.5 baseline, thinners as above -Stable hemoglobin, will discuss with cardiology restarting the Plavix #JUNE - Baseline creatinine 0.9, currently 1.9, making good urine - Clinically consistent with hypovolemia, fluid resuscitation per emergency department and sepsis protocol - Serial monitoring #Pulmonary nodule - Noted on CT, outpatient follow-up #Senile Alzheimer's dementia - Mild to moderate,-high risk for cognitive decompensation/sundowning - Family at bedside, encouraged gentle redirection, minimize sedatives #Hypertension - Stable blood pressure remains at goal, continue antihypertensives #Hyperlipidemia -Statin #FEN -N.p.o., NS at 100 cc/h #CODE STATUS -DNR/DNI per her wishes, confirmed with the daughter over the telephone at the time of admission Admission and Anticipated Discharge Date Admission Date: March 31, 2025 Subjective Patient doing well this morning. Up sitting in bed. Does report some mild abdominal discomfort and dyspepsia but overall feeling better than she did yesterday. Slept okay. Tolerating the clears and advancing diet fine with no difficulties. No urinary or bowel changes. No new events or concerns per patient or nursing staff. Physical Exam Physical Exam: Cardiovascular: tachycardia with regular rhythm. No murmurs, rubs or gallops. Intact distal pulses. Pulmonary/Chest: No respiratory distress. Breath sounds clear and equal bilaterally. No wheezes or rales. Abdominal: Mild tenderness to palpation mostly on the right, no distention or rigidity, no rebound or referral. Unchanged compared to yesterday Musculoskeletal: 1+ pitting edema bilaterally,no tenderness or deformity noted. Skin: Warm and dry. No rash, erythema, pallor or cyanosis Psychiatric: Appropriate mood and affect for situation. Neurological: Alert and keenly responsive. confused, responses often do not follow with questioning, CN II-XII grossly intact, moving all extremities equally and fully. Results & Data Results & Data Vital Signs (Past 12 Hours) Vital Signs Temp Pulse Resp BP Pulse Ox O2 Del Method 04/03/25 11:44 36.9 C 69 18 152/78 H 04/03/25 08:00 36.8 C 80 25 H 157/61 H 94 Room Air 04/03/25 03:23 37.0 C 72 21 144/65 H 94 Room Air Laboratory Results 03/31/25 12:32 Aerobic Blood Culture - Preliminary Blood No growth in Aerobic bottle after 48 hours. Anaerobic Blood Culture - Final 03/31/25 12:30 Aerobic Blood Culture - Preliminary Blood No growth in Aerobic bottle after 48 hours. Anaerobic Blood Culture - Final 04/03/25 05:54 WBC 9.53 RBC 2.92 L Hgb 8.5 L Hct 26.3 L MCV 90.1 MCH 29.1 MCHC 32.3 RDW Std Deviation 49.5 H RDW Coeff of Lea 14.8 H Plt Count 185 MPV 10.3 Immature Gran % (Auto) 0.9 Neut % (Auto) 75.6 Lymph % (Auto) 11.8 [place] % (Auto) 7.0 Eos % (Auto) 4.6 Baso % (Auto) 0.1 Neut # (Auto) 7.20 H Lymph # (Auto) 1.12 L [place] # (Auto) 0.67 H Eos # (Auto) 0.44 Baso # (Auto) 0.01 Immature Gran # (Auto) 0.09 Sodium 143 Potassium 3.2 L Chloride 114 H Carbon Dioxide 21 Anion Gap 8 BUN 18 Creatinine 1.29 H D Est Cr Clr Drug Dosing 28.5 eGFR 40.93 BUN/Creatinine Ratio 14.0 Glucose 104 H Calcium 7.5 L Random Vancomycin 9.7 L PG Care Time/CCT Total # of Minutes Spent Total Time Spent with Patient: Total time spent is greater than 50% in coordination of care (as documented) at patient's floor/unit and/or counseling patient: Coding Level of Care Code 77360 SUB INP/OBS CARE 2/35MIN Diagnoses Post op infection T81.40XA JUNE (acute kidney injury) N17.9 Elevated troponin R79.89 Nausea & vomiting R11.2 H/O insertion of cholecystostomy tube Z98.890 SDAT (senile dementia of Alzheimer's type) G30.1; F02.80 Atherosclerosis of both carotid arteries I65.23 Laterality: bilateral Pulmonary emphysema J43.9 PAD (peripheral artery disease) I73.9 Prediabetes R73.03 (7) Carotid artery plaque Laterality: bilateral Qualified Code(s): I65.23 - Occlusion and stenosis of bilateral carotid arteries
[2025-04-03] MEDS: POTASSIUM CHLORIDE / WTR 10 MEQ/100 ML PLCT IV SCH (16:37)
[2025-04-04 06:19] LABS: Hematocrit (blood only) 25.7 % (37.0-47.0); Hemoglobin 8.3 g/dL (12.0-16.0); Immature Granulocytes # (auto) 0.04 K/uL (0.01-0.20); Immature Granulocytes % (auto) 0.4 %; Mean Corpuscular Hemoglobin 28.8 pg (25.0-34.0); Mean Corpuscular Volume 89.2 fL (80.0-100.0); Platelet Count 178 K/uL (130-400); RDW Standard Deviation 48.2 fL (36.4-46.3); Red Blood Count 2.88 M/uL (4.20-5.40); White Blood Count 9.44 K/ul (4.8-10.8)
[2025-04-04 06:34] LABS: Albumin Level 2.4 gm/dl (3.4-5.0); Anion Gap 7.0 (3-11); Bilirubin,Total 0.5 mg/dl (0.2-1.0); Calcium 7.6 mg/dl (8.6-10.3); Carbon Dioxide 20.0 mmol/L (21-32); Chloride 116.0 mmol/L (98-107); Magnesium 1.6 mg/dl (1.7-2.4); Potassium 3.4 mmol/L (3.5-5.1); Sodium 143.0 mmol/L (136-145)
[2025-04-04 06:41] LABS: Alanine Aminotransferase 9.0 U/L (7-52); Albumin Globulin Ratio 1.1 (0.9-2); Alkaline Phosphatase 58.0 U/L (34-104); Blood Urea Nitrogen 12.0 mg/dl (6-23); Creatinine Clr Calc Pharmacy 34.8 ml/min; Globulin 2.2 gm/dl (2.5-4.0); Glucose 102.0 mg/dl (70-99(Fasting)); Total Protein 4.6 gm/dl (6.0-8.3)
--- NOTE | 2025-04-04 09:15 | Cardiology Progress Note ---
Date of Service April 04, 2025 Assessment & Plan (1) Elevated troponin: (2) Abnormal ECG: (3) Sepsis: Plan Past cardiac history: 1.Echo 10/2024 - Akinesis of the basal inferoseptum, basal inferior and basal-mid inferolateral LV dawson, EF 50-55%, Moderate concentric left ventricular hypertrophy 2. 7.9 cm infrarenal abdominal aortic aneurysm s/p PEVAR 10/2024 3. HTN 4. CAD s/p coronary artery bypass grafting in 2014 [facility] [place] 5. HLD Ms. Redd does appear to have experienced a cardiac event. Her troponin down trended and ischemic ekg changes improved. She is also not having any anginal symptoms. Her EKG on March 31 when she got to the emergency department did show ST segments in the lateral leads that were starting to elevate/become biphasic. Her EKG a few hours later showed resolution of the T wave elevations, now with T wave inversions. The Q waves with T wave inversions in the inferior leads are chronic and can be seen in earlier EKGs and correlate with the known prior wall motion abnormalities in her basal inferoseptum, basal inferior and basal mid inferior lateral LV dawson. Her risk outweighed the benefit of invasive intervention and she has been managed medically. However today her EKG re-demonstrated ST elevation in the anterior leads and given her now normal kidney function and stable hgb, a decision was made to take her to the pipelines laborer. Her grafts remain open and she did not require intervention. Repeat echocardiogram this admission does not show new wall motion abnormalities and EF remains 50-55%. Plavix can be resumed per surgery recommendation. Her case was discussed with Dr. Mendez. I also called her daughter prior to the cath to discuss risks and benefits and she was in agreement with the plan. Admission and Anticipated Discharge Date Admission Date: March 31, 2025 Subjective Ms. Redd appears comfortable eating breakfast this morning. She notes that she does not have much appetite. She denies pain. No sob or chest pain or palpitations Review of Systems Review of Systems: All systems reviewed & are unremarkable except as noted in HPI & below Physical Exam Constitutional: WD/WN, vitals as above Respiratory: normal respiratory effort, lungs clear to auscultation Cardiovascular: Rate/Rhythm: + abnormal rate and + abnormal rhythm Heart Sounds: normal S1 and normal S2 Extremities: + edema (mild bilateral LE edema) Skin: no rashes, warm and dry Neurologic: moves all extremities and awake Psychiatric: A+Ox3, euthymic affect Results & Data Vital Signs (Past 12 Hours) Vital Signs Temp Pulse Pulse Resp BP Pulse Ox O2 Del Method 04/04/25 08:14 36.7 C 78 18 151/74 H 93 Room Air 04/04/25 03:18 36.5 C 76 20 147/74 H 94 Room Air 04/03/25 23:20 82 04/03/25 23:06 36.4 C L 85 22 154/72 H 98 Room Air
--- NOTE | 2025-04-04 09:20 | Infectious Disease Consult ---
Date of Consultation April 04, 2025 Assessment & Plan (1) Leukocytosis: (2) JUNE (acute kidney injury): (3) Elevated troponin: (4) Sepsis: Plan Problems: #Leukocytosis: resolved #Abd pain, N/V #Elevated troponin, abnormal EKG #JUNE: improving Micro: 03/31 BCx x2: NGTD Abx: Zosyn 03/31 - present Vanc 04/01 - present 85 yo F with history of MCI, emphysema, CAD, HTN, HLD, stage 3 CKD, abdominal aneurysm s/p endovascular repair (10/29/24), cholecystitis s/p cholecystostomy tube (09/2024) then laparoscopic cholecystectomy with removal of per harry (03/27/25), who presented on 03/31 with N/V, abdominal pain, not feeling well. Denied fevers. On presentation, pt was afebrile, HR 128, BP 98/62. Labs showed WBC 12.94, Hb 11.3, Cr 1.89, lactate 3.7, procal 10.4. COVID-19/flu/RSV negative. CTAP with IV contrast showed moderate pneumoperitoneum, likely postsurgical, although perforated viscus difficult to completely exclude. Several operative bed fluid collections, not unexpected in early postop setting. Lateral most collection likely represents small hematoma. Wall thickening of distal stomach, proximal duodenum and hepatic flexure of colon, nonspecific but likely postsurgical. Stable appearance of large infrarenal abdominal aortic aneurysm s/p placement of bifurcated aortoiliac stent graft. Surgery was consulted, noted her incisions were c/d/i without signs of infection, and pt was tender across upper/mid abd regions with voluntary guarding. Recommended NPO, IVF, IV antibiotics, and subsequent CT for monitoring. Pt was started on Zosyn. Pt noted to have EKG changes 03/31 and rising troponin. CTAP repeated 03/31 PM, which showed no acute findings, massive amount of free air in abdomen unchanged from prior. Cardiology consulted on 04/01. Talmo pt had a cardiac event, but her troponin was then downtrending and EKG improved. Was noted to have drop in Hb of 3, so heparin was discontinued. Pt's abd pain has improved. Leukocytosis resolved 04/01. Pt has remained afebrile. Discussion: Pt presented with N/V and abd pain, leukocytosis, tachycardia, soft BP, elevated lactate. Concern for abdominal source of infection, but CTAP x 2 on 03/31 seeming to only show postoperative changes, no abscess. Did have cardiac event with elevated troponin and EKG changes, which appears resolved. Pt now clinically improved, without leukocytosis, abd pain resolved. Unclear whether pt had an intra-abd infection, but reasonable to give short course of antibiotics given initial presentation. Recommendations: - Discontinued vanc - Can complete a 7 day course of antibiotics. Can continue Zosyn and on discharge transition to amox/clav 875 mg PO BID through 04/07 Discussed with surgery and primary team. Will sign off. Consultation Information Consultation was provided via telemedicine using two-way real-time interactive telecommunication between the patient and the telemedicine provider. For the duration of the visit, the provider was performing the assessment from a different facility than the patient. This includesuse of bluetooth stethoscope forauscultationperformed by the telepresenter that the telemedicine provider can hear if described in the physical exam. Power Machine Operator contact information: Please call [facility] . (Phone Number For Physician Use Only) After establishing a telemedicine visit, patient was: Patient was verified with two unique identifiers, Patient/authorized rep acknowledged consent and unde rstanding and Gave permission to continue telehealth session Time Spent with Patient: Initial => 55 min History of Present Illness Reason for Consultation: Deescalate antibiotics Attending Physician: Rashard Guo MD History of Present Illness 85 yo F with history of MCI, emphysema, CAD, HTN, HLD, stage 3 CKD, abdominal aneurysm s/p endovascular repair (10/29/24), cholecystitis s/p cholecystostomy tube (09/2024) then laparoscopic cholecystectomy with removal of per harry (03/27/25), who presented on 03/31 with N/V, abdominal pain, not feeling well. Denied fevers. On presentation, pt was afebrile, HR 128, BP 98/62. Labs showed WBC 12.94, Hb 11.3, Cr 1.89, lactate 3.7, procal 10.4. COVID-19/flu/RSV negative. CTAP with IV contrast showed moderate pneumoperitoneum, likely postsurgical, although perforated viscus difficult to completely exclude. Several operative bed fluid collections, not unexpected in early postop setting. Lateral most collection likely represents small hematoma. Wall thickening of distal stomach, proximal duodenum and hepatic flexure of colon, nonspecific but likely postsurgical. Stable appearance of large infrarenal abdominal aortic aneurysm s/p placement of bifurcated aortoiliac stent graft. Surgery was consulted, noted her incisions were c/d/i without signs of infection, and pt was tender across upper/mid abd regions with voluntary guarding. Recommended NPO, IVF, IV antibiotics, and subsequent CT for monitoring. Pt was started on Zosyn. Pt noted to have EKG changes 03/31 and rising troponin. CTAP repeated 03/31 PM, which showed no acute findings, massive amount of free air in abdomen unchanged from prior. Cardiology consulted on 04/01. Talmo pt had a cardiac event, but her troponin was then downtrending and EKG improved. Was noted to have drop in Hb of 3, so heparin was discontinued. Pt's abd pain has improved. Leukocytosis resolved 04/01. Pt has remained afebrile. Allergies Allergy/AdvReac Type Severity Reaction Status Date / Time donepezil AdvReac Mild Nausea Verified 03/27/25 08:32 Home Medications Medication Instructions Recorded Confirmed Type aspirin 81 mg chewable tablet 81 mg PO HS 10/22/18 03/31/25 History Walking Cane #1 ea 04/16/24 02/12/25 Rx clopidogrel 75 mg tablet 75 mg PO DAILY 03/18/25 03/31/25 History losartan 25 mg tablet 25 mg PO DAILY 03/18/25 03/31/25 History metoprolol succinate 25 mg 25 mg PO QAM 03/18/25 03/31/25 History tablet,extended release 24 hr rosuvastatin 10 mg tablet 10 mg PO HS #90 tabs 03/25/25 03/31/25 Rx mirtazapine 15 mg tablet 15 mg PO HS PRN Sleep 03/27/25 03/31/25 History oxycodone 5 mg tablet 5 mg PO Q6H PRN pain #15 tabs 03/27/25 03/31/25 Rx ondansetron 4 mg disintegrating 4 mg PO Q8H PRN nausea and 03/31/25 03/31/25 Rx tablet vomiting 4 days #12 tabs Patient History Medical History PAD (peripheral artery disease) Right to left femorofemoral bypass (done at same time as EVAR 10/29/24) Abdominal aortic aneurysm (AAA) 7.9 cm s/p EVAR with two bifurcated endograft and a right to left femorofemoral bypass 10/29/24 Prediabetes CAD (coronary artery disease) 4 vessel CABG 2014 SDAT (senile dementia of Alzheimer's type) per daughter "not really that bad" Pulmonary emphysema dtr denies "mother has no breathing problems" Carotid artery plaque hx, <50% carotid stenosis per 2021 carotid doppler Acute cholecystitis Admitted to [facility] 10/12/24-10/23/24; s/p cholecystostomy tube placed 10/14/24>still intact on 03/18/25 Not a surgical candidate for cholecystectomy until AAA repaired Hx of sepsis d/c [facility] 10/16/24 "infection coming from gallbladder, finished abx tx 10/23/24" Mild cognitive impairment "forgetful, and in the early stages of dementia" per dtr History of hypertension Hx of hyperlipidemia Myocardial Infarction per dtr "her mom didn't have a heart attack, abnormal stress test in 2014" Seasonal allergies Chronic kidney disease, stage 3 Pulmonary nodule, right monitoring? Surgical History Hx laparoscopic cholecystectomy (03/27/25) Laparoscopic Cholecystectomy with Removal of Her Percutaneous Cholecystectomy Tube - Kirk Fernandes DO History of tooth extraction History of cataract surgery right/left Status post endovascular aneurysm repair (EVAR) (10/29/24) Unilimb Endovascular Aortic Aneurysm Repair using Two Bifurcated endografts, Femoral To Femoral bypass right to left - Christoph Faye MD History of postoperative nausea and vomiting Family history of reaction to anesthesia dtr-N/V and shaking after hysterectomy History of surgical removal of skin lesion (01/13/22) Excision of Skin Lesion on Back- Tae Lopez DO, FACS History of dilatation and curettage ~1989 History of cardiac cath 2014 at [facility] --> transferred to [facility] History of cataract surgery right/left 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, 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, saphenous growing graft to OM2, saphenous vein graft to RCA-January 2015, [facility] Family History Brother Aortic aneurysm Hypertension Father Coronary heart disease Sister Hypertension Mother Diabetes Other No family history of adverse response to anesthesia Denies family history of Ovarian cancer Prostate cancer Breast cancer Colorectal cancer Social History Smoking Status: Former smoker Tobacco Type: Cigarettes Age Started Using Tobacco: 0; packs per day: 0; Cigarettes Per Day: 20; Second Hand Exposure: No; Do You Dip or Chew Tobacco: No; Hx Alcohol Use: No Hx Substance Use: No Preferred Language: Sami Communication Ability: Effective Visual Impairment: No Limitations Hearing Ability: Normal Developmental Mathematics Instructor Required: No Beliefs That Will Affect Care: None marital status: / Current Living Situation: Family Current Living Situation Comment: lives with daughter>Natty (cares for mother/other daughter assists) current occupational status: retired current occupation: Housework/cleaning How many Children do You have: 5 Other Information That Helps Us Care for You: No Feels Safe at Home: Yes Safety Concerns: Feels Safe At This Time Childhood Exposure to Second-Hand Smoke: No Diet: regular caffeine: No during the past year weight has: decreased > 10 lbs Dental Care, Regularly: No Physical Activity Frequency: Does not Exercise Seatbelt Use: always Sunscreen Use: No Assistive Devices: Cane Review of System A complete ROS was performed and is negative except as mentioned in the HPI. Physical Exam Physical Exam: GEN: laying in bed in NAD. HEENT: Normocephalic, atraumatic. RESP: No increased work of breathing ABD: Soft, non-distended. Non-tender to palpation. NEURO: Alert and oriented. PSYCH: Normal mood, affect appropriate. Results & Data Vital Signs (Past 12 Hours) Vital Signs Temp Pulse Pulse Resp BP Pulse Ox O2 Del Method 04/04/25 08:14 36.7 C 78 18 151/74 H 93 Room Air 04/04/25 03:18 36.5 C 76 20 147/74 H 94 Room Air 04/03/25 23:20 82 04/03/25 23:06 36.4 C L 85 22 154/72 H 98 Room Air Laboratory Results Short CBC 04/04/25 Range/Units 05:55 WBC 9.44 (4.8-10.8) K/ul Hgb 8.3 L (12.0-16.0) g/dL Hct 25.7 L (37.0-47.0) % Plt Count 178 (130-400) K/uL BMP 04/04/25 05:55 Sodium 143 Potassium 3.4 L Chloride 116 H Carbon Dioxide 20 L BUN 12 Creatinine 1.11 Glucose 102 H Calcium 7.6 L Liver Function 04/04/25 Range/Units 05:55 Total Bilirubin 0.5 (0.2-1.0) mg/dl AST 11 L (13-39) U/L ALT 9 (7-52) U/L Alkaline Phosphatase 58 (34-104) U/L Albumin 2.4 L (3.4-5.0) gm/dl
[2025-04-04] MEDS: VANCOMYCIN HCL / NSS 1,000 MG/270 ML BAG IV SCH (09:40)
--- NOTE | 2025-04-04 10:02 | Electrocardiogram Report ---
Test Reason : Blood Pressure : */* mmHG Vent. Rate : 86 BPM Atrial Rate : 86 BPM P-R Int : 150 ms QRS Dur : 106 ms QT Int : 418 ms P-R-T Axes : 69 2 7 degrees QTcB Int : 500 ms Sinus rhythm with Premature supraventricular complexes and with frequent , and consecutive Premature ventricular complexes Cannot rule out Inferior infarct (cited on or before 02-Feb-2015) T wave abnormality, consider anterolateral ischemia Prolonged QT Abnormal ECG When compared with ECG of 01-Apr-2025 08:03, Serial changes of evolving anterior injury Confirmed by Jerry Flores ([id number]) on 04/04/2025 10:02:05 AM Referred By: Kirk Fernandes Confirmed By: Jerry Flores
--- NOTE | 2025-04-04 14:54 | Pre Anesthesia Assessment ---
Date of Service April 04, 2025 Pre Sedation Assessment Vital Signs Temp Pulse Pulse Resp BP BP Pulse Ox 04/04/25 14:39 77 18 151/95 H 90 04/04/25 11:50 97.9 F 85 18 156/88 H 97 04/04/25 09:05 04/04/25 08:14 98.1 F 78 18 151/74 H 93 04/04/25 07:00 72 04/04/25 03:18 97.7 F 76 20 147/74 H 94 04/03/25 23:20 82 04/03/25 23:06 97.5 F L 85 22 154/72 H 98 04/03/25 19:20 97.9 F 73 20 136/69 93 04/03/25 15:20 98.1 F 77 18 151/63 H 96 O2 Del Method 04/04/25 14:39 Room Air 04/04/25 11:50 Room Air 04/04/25 09:05 Room Air 04/04/25 08:14 Room Air 04/04/25 07:00 04/04/25 03:18 Room Air 04/03/25 23:20 04/03/25 23:06 Room Air 04/03/25 19:20 Room Air 04/03/25 15:20 Room Air Cardiovascular + regular rate Respiratory + respiratory effort normal Pre-Sedation Airway Assessment Smoking Status: Former smoker Hx Sleep Apnea: No Hx Difficult Intubation: No Short, Thick Neck: No Thyromental Distance: < 3.5 Finger Breadths Oral Cavity: + WNL Mallampati Class: II ASA: ASA2E NPO Status Date of Last Intake of Fluids: 04/04/25 Time of Last Intake of Fluids: 08:30 Date of Last Intake of Solid Food: 04/04/25 Time of Last Intake of Solid Foods: 08:30 Procedure Planning Contraindications for Sedation: none Current Medications Reviewed: Yes Notes The planned sedation has been discussed with the patient. Informed Consent was obtained. I have identified the patient, determined the appropriateness of sedation and have assessed the patient immediately prior to the procedure. All medicine(s) and interventions are by my order.
--- NOTE | 2025-04-04 15:45 | Electrocardiogram Report ---
Test Reason : Blood Pressure : */* mmHG Vent. Rate : 72 BPM Atrial Rate : 72 BPM P-R Int : 156 ms QRS Dur : 106 ms QT Int : 468 ms P-R-T Axes : 39 -3 -86 degrees QTcB Int : 512 ms Normal sinus rhythm Inferior infarct (cited on or before 02-Feb-2015) T wave abnormality, consider anterolateral ischemia Prolonged QT Abnormal ECG When compared with ECG of 04-Apr-2025 14:17, (unconfirmed) Premature atrial complexes are no longer Present Confirmed by Jerry Flores ([id number]) on 04/04/2025 3:45:04 PM Referred By: Kirk Fernandes Confirmed By: Jerry Flores
--- NOTE | 2025-04-04 15:45 | Electrocardiogram Report ---
Test Reason : Blood Pressure : */* mmHG Vent. Rate : 79 BPM Atrial Rate : 79 BPM P-R Int : 148 ms QRS Dur : 104 ms QT Int : 450 ms P-R-T Axes : 32 -5 -49 degrees QTcB Int : 516 ms Sinus rhythm with Premature atrial complexes Inferior infarct (cited on or before 02-Feb-2015) T wave abnormality, consider anterolateral ischemia Prolonged QT Abnormal ECG When compared with ECG of 04-Apr-2025 09:29, Premature ventricular complexes are no longer Present Confirmed by Jerry Flores ([id number]) on 04/04/2025 3:45:23 PM Referred By: Kirk Fernandes Confirmed By: Jerry Flores
[2025-04-04] MEDS: OPTIRAY 350 ONE (16:28)
[2025-04-04] MEDS: HEPARIN (PORCINE) 1000 UNIT/ML 10 ML (CATH LAB USE ONLY) ONE (16:28)
[2025-04-04] MEDS: IODIXANOL (VISIPAQUE) 320 MG/ML 100ML IV ONE (16:28)
[2025-04-04] MEDS: niCARdipine 2,000 MCG/20 ML SYR ONE (16:29)
[2025-04-04] MEDS: MIDAZOLAM HCL 1 MG/ML 2ML VIAL ONE (16:29)
[2025-04-04] MEDS: NITROGLYCERIN/D5W 100MCG/ML 20ML SYR ONE (16:29)
--- NOTE | 2025-04-04 16:35 | Post Anesthesia Assessment ---
Date of Service April 04, 2025 Post Sedation Assessment Vital Signs Temp Pulse Pulse Resp BP BP Pulse Ox 04/04/25 15:13 73 04/04/25 14:39 77 18 151/95 H 90 04/04/25 11:50 97.9 F 85 18 156/88 H 97 04/04/25 09:05 04/04/25 08:14 98.1 F 78 18 151/74 H 93 04/04/25 07:00 72 04/04/25 03:18 97.7 F 76 20 147/74 H 94 04/03/25 23:20 82 04/03/25 23:06 97.5 F L 85 22 154/72 H 98 04/03/25 19:20 97.9 F 73 20 136/69 93 O2 Del Method 04/04/25 15:13 04/04/25 14:39 Room Air 04/04/25 11:50 Room Air 04/04/25 09:05 Room Air 04/04/25 08:14 Room Air 04/04/25 07:00 04/04/25 03:18 Room Air 04/03/25 23:20 04/03/25 23:06 Room Air 04/03/25 19:20 Room Air Recovery Score Activity: Moves 4 extremities Respiration: Deep Breath/Cough Circulation: +/-20% PreAnes Value Consciousness: Fully Awake Oxygen Saturation: O2 needed for >90% Discharge Sedation Level of Care: Fast Track Phase II
--- NOTE | 2025-04-04 16:37 | Cardiac Catheterization ---
[facility] Data: Tool Smith Cardiac Status Clinical evaluation leading to the procedure CAD Presenation: Non STEMI Diagnostic Physicians Name: Alexander Jane MD Closure Device Recommendations: Medical Therapy and/or Counseling Cardiac Cath Procedure Full Procedure Date April 04, 2025 Pre-Procedure Diagnosis Pre-Procedure Diagnosis: Non STEMI and CAD AUC Score AUC Score: 7 Post-Procedure Diagnosis Post-Procedure Diagnosis: Severe CAD and Normal Intracardiac Pressures Procedure(s) Performed Procedure(s) Performed: Coronary Angiography, Left Heart Cath, Ultrasound Guided Vascular Access and Bypass Graft Angiography Wafer Substrate Tester Alexander Jane MD Chestnut Tanner(s) Epi Estimated Blood Loss Estimated Blood Loss: 15 Medication(s) Medication(s): Fentanyl, Heparin, Lidocaine 1%, Nicardipine, Nitroglycerin and Versed Summary of Findings Indication: NSTEMI Access: 6 Fr left ulnar artery under ultrasound guidance Catheters: JL 3.5, JR4, pigtail, YULIYA Findings: LM -no significant stenosis, ectatic at bifurcation LAD -50% proximal stenosis at takeoff of first septal. 100% earlymid chronic total occlusion just after small first diagonal. D1 without significant disease. Circumflex -medium caliber, 100% earlymid chronic total occlusion Small ramus without significant disease. RCA -dominant, 100% proximal chronic total occlusion. SALINAS to LADpatent, angulated approximately with 40% stenosis proximal graft stenosis. 60 to 70% stenosis at LAD anastomosis. LAD after anastomosis without significant disease and OLGA-3 flow. SVG to VE1ppthpa patent. OM after anastomosis without disease. SVG to OM2--widely patent without significant disease. SVG to distal RCApatent with 50 to 60% stenosis at anastomosis. PDA medium caliber without significant disease and provides faint collaterals to LAD. LVEDP -15 Arterial Closure: TR band Summary: 1. Patent bypass grafts SALINAS to LAD with 40% proximal graft and 60 to 70% stenosis at anastomosis. LAD after anastomosis without disease and OLGA-3 flow SVGOM1 and SVGOM2 both widely patent SVGdistal LDJ22-93% stenosis at anastomosis. PDA without disease and OLGA-3 flow. 2. Severe chronic chitimacha coronary artery disease 50% proximal, 100% earlymid LAD chronic total occlusion 100% earlymid circumflex chronic total occlusion 100% proximal RCA chronic total occlusion 3. Normal intracardiac filling pressure Recommendations: Patient chest pain free with patent bypass grafts and no acute disease to explain patient's symptoms. Recommend continued medical management of CAD per Dr. Vanessa Vance Intervention to SALINAS to LAD or SVG to distal RCA anastomosis would be difficult and high risk. Hemodynamics Rest Ao:: 141/69/96 Final Ao: 154/67/100 LV: 164/15 Recommendations Recommendations: Medical Therapy and/or Counseling Radiation Exposure (mGy) 825 Contrast (mls) 130 Anesthesia Moderate [id number] Procedural Complication(s) None Disposition PCU I attest to the content of the Intraoperative Record and any orders documented therein. Any exceptions are noted below. [employer] Card Cath Procedure Codes Cardiac Catheterization Procedure 1: Cardiovascular Cath Procedures: 33503 Coronaries & LHC (+/-LV) & Grafts/IM (arterial & venous) Therapeutic Services & Ancillary Procedure 1: Cardiovascular Tx and Anc Procedures: 93871 Ultrasonic Guidance Vascular Access Moderate Sedation Procedure 1: Sedation/Anesthesia: 59349 Mod Sedation by the same physician;Init15 Min Child Age 5 & Up Procedure 2: Sedation/Anesthesia: 96241 Mod Sedation by the same physician; Ea [id number] Minutes PG Care Time/CCT Total # of Minutes Spent Total Time Spent with Patient: Total time spent is greater than 50% in coordination of care (as documented) at patient's floor/unit and/or counseling patient:
--- NOTE | 2025-04-04 17:14 | Hospitalist Progress Note ---
Date of Service April 04, 2025 Assessment & Plan (1) Post op infection: (2) JUNE (acute kidney injury): (3) Elevated troponin: (4) Nausea & vomiting: (5) H/O insertion of cholecystostomy tube: (6) SDAT (senile dementia of Alzheimer's type): (7) Carotid artery plaque: (8) Pulmonary emphysema: (9) PAD (peripheral artery disease): (10) Prediabetes: Plan #Vomiting #POD#5 laparoscopic cholecystectomy perc harry tube removal #Abdominal pain, abnormal CT findings #Lactic acidemia #Elevated procalcitonin -No jesus signs of abdominal peritonitis, surgical consultation completed, clinical exam improving, lactate has normalized -Continue Zosyn, OK to advance diet per surgery, no plan for OR at this time -MRSA screen positive, vancomycin added especially with setting where she has had recent hospitalization instrumentation. No definitive cultures from the source will be available. Slow but persistent recovery. Plan for short course of vancomycin, dosing per pharmacy. - Advancing diet improving but not at goal, start PT and OT #ACS #S/P EVAR #CABGx4 #Known CAD - Elevated troponin, extensive CAD Hx, s/p bypass x4, EVAR in October, now with dynamic T-wave changes, have now stabilized. - No chest pain or ongoing symptoms, markers downtrending, per cardiology she does appear to have had a cardiac event, now on the recovery side - Cardiology consult, DC heparin, start ASA, appreciate cardiology recs/mgmt, medical management as above. High risk catheterization outweighs benefit at this time per cardiology - Frequent Ectopy, ST chagnes concerning, take to rags laborer by cardiology, no acute disease final report pending, back to PCU #Anemia -Hematoma on CT, hgb stable at 8.5 this AM down from 11.5 baseline, thinners as above -Stable hemoglobin, will discuss with cardiology restarting the Plavix - hgb stable at 8.3 #JUNE - Baseline creatinine 0.9, currently 1.9, making good urine - Clinically consistent with hypovolemia, fluid resuscitation per emergency department and sepsis protocol -a tbaseline #Pulmonary nodule - Noted on CT, outpatient follow-up #Senile Alzheimer's dementia - Mild to moderate,-high risk for cognitive decompensation/sundowning - Family at bedside, encouraged gentle redirection, minimize sedatives #Hypertension - Stable blood pressure remains at goal, continue antihypertensives #Hyperlipidemia -Statin #FEN -advnace diet as above, slow improviement, OK to DC IVF #CODE STATUS -DNR/DNI per her wishes, confirmed with the daughter over the telephone at the time of admission Admission and Anticipated Discharge Date Admission Date: March 31, 2025 Subjective Doing very well this morning. Interval and ongoing improvement in her abdominal pain. Increased oral intake and appetite. Positive bowel movements. No chest pain palpitations or shortness of breath. She was alert and is engaging as she has been during this hospitalization was started this morning. Physical Exam Physical Exam: Cardiovascular: tachycardia with regular rhythm. No murmurs, rubs or gallops. Intact distal pulses. Pulmonary/Chest: No respiratory distress. Breath sounds clear and equal bilaterally. No wheezes or rales. Abdominal: Mild tenderness to palpation mostly on the right, no distention or rigidity, no rebound or referral. Again essentially unchanged compared to yesterday Musculoskeletal: 1+ pitting edema bilaterally,no tenderness or deformity noted. Skin: Warm and dry. No rash, erythema, pallor or cyanosis Psychiatric: Appropriate mood and affect for situation. Neurological: Alert and keenly responsive. confused, responses often do not follow with questioning, CN II-XII grossly intact, moving all extremities equally and fully. Results & Data Results & Data Vital Signs (Past 12 Hours) Vital Signs Temp Pulse Pulse Resp BP BP Pulse Ox 04/04/25 15:13 73 04/04/25 14:39 77 18 151/95 H 90 04/04/25 11:50 36.6 C 85 18 156/88 H 97 04/04/25 09:05 04/04/25 08:14 36.7 C 78 18 151/74 H 93 04/04/25 07:00 72 O2 Del Method 04/04/25 15:13 04/04/25 14:39 Room Air 04/04/25 11:50 Room Air 04/04/25 09:05 Room Air 04/04/25 08:14 Room Air 04/04/25 07:00 Laboratory Results 04/04/25 03/31/25 05:55 22:38 WBC 9.44 RBC 2.88 L Hgb 8.3 L Hct 25.7 L MCV 89.2 MCH 28.8 MCHC 32.3 RDW Std Deviation 48.2 H RDW Coeff of Lea 14.9 H Plt Count 178 MPV 10.2 Immature Gran % (Auto) 0.4 Neut % (Auto) 72.3 Lymph % (Auto) 14.1 [place] % (Auto) 8.8 Eos % (Auto) 4.1 Baso % (Auto) 0.3 Neut # (Auto) 6.82 H Lymph # (Auto) 1.33 [place] # (Auto) 0.83 H Eos # (Auto) 0.39 Baso # (Auto) 0.03 Immature Gran # (Auto) 0.04 Sodium 143 Potassium 3.4 L Chloride 116 H Carbon Dioxide 20 L Anion Gap 7 BUN 12 Creatinine 1.11 Est Cr Clr Drug Dosing 34.8 eGFR 49.01 BUN/Creatinine Ratio 10.8 Glucose 102 H Calcium 7.6 L Magnesium 1.6 L Total Bilirubin 0.5 AST 11 L ALT 9 Alkaline Phosphatase 58 C-Reactive Protein 9.20 H Total Protein 4.6 L Albumin 2.4 L Globulin 2.2 L Albumin/Globulin Ratio 1.1 Random Vancomycin 9.5 L Crossmatch See Detail PG Care Time/CCT Total # of Minutes Spent Total Time Spent with Patient: Total time spent is greater than 50% in coordination of care (as documented) at patient's floor/unit and/or counseling patient: Coding Level of Care Code 91444 SUB INP/OBS CARE 2/35MIN Diagnoses Post op infection T81.40XA JUNE (acute kidney injury) N17.9 Elevated troponin R79.89 Nausea & vomiting R11.2 H/O insertion of cholecystostomy tube Z98.890 SDAT (senile dementia of Alzheimer's type) G30.1; F02.80 Atherosclerosis of both carotid arteries I65.23 Laterality: bilateral Pulmonary emphysema J43.9 PAD (peripheral artery disease) I73.9 Prediabetes R73.03 (7) Carotid artery plaque Laterality: bilateral Qualified Code(s): I65.23 - Occlusion and stenosis of bilateral carotid arteries
[2025-04-05 06:42] LABS: Hematocrit (blood only) 26.4 % (37.0-47.0); Hemoglobin 8.6 g/dL (12.0-16.0); Immature Granulocytes # (auto) 0.07 K/uL (0.01-0.20); Immature Granulocytes % (auto) 0.6 %; Mean Corpuscular Hemoglobin 29.2 pg (25.0-34.0); Mean Corpuscular Volume 89.5 fL (80.0-100.0); Platelet Count 223 K/uL (130-400); RDW Standard Deviation 49.2 fL (36.4-46.3); Red Blood Count 2.95 M/uL (4.20-5.40); White Blood Count 10.84 K/ul (4.8-10.8)
[2025-04-05 07:12] LABS: Anion Gap 8.0 (3-11); Blood Urea Nitrogen 9.0 mg/dl (6-23); Calcium 7.7 mg/dl (8.6-10.3); Carbon Dioxide 21.0 mmol/L (21-32); Chloride 114.0 mmol/L (98-107); Creatinine Clr Calc Pharmacy 31.4 ml/min; Glucose 108.0 mg/dl (70-99(Fasting)); Magnesium 1.6 mg/dl (1.7-2.4); Potassium 3.2 mmol/L (3.5-5.1); Sodium 143.0 mmol/L (136-145)
[2025-04-05] MEDS: POTASSIUM CHLORIDE / WTR 10 MEQ/100 ML PLCT IV SCH (08:22)
--- NOTE | 2025-04-05 14:47 | Hospitalist Progress Note ---
Date of Service April 05, 2025 Assessment & Plan (1) Post op infection: (2) JUNE (acute kidney injury): (3) Elevated troponin: (4) Nausea & vomiting: (5) H/O insertion of cholecystostomy tube: (6) SDAT (senile dementia of Alzheimer's type): (7) Carotid artery plaque: (8) Pulmonary emphysema: (9) PAD (peripheral artery disease): (10) Prediabetes: Plan #Vomiting #POD#5 laparoscopic cholecystectomy perc harry tube removal #Abdominal pain, abnormal CT findings #Lactic acidemia #Elevated procalcitonin -No jesus signs of abdominal peritonitis, surgical consultation completed, clinical exam improving, lactate has normalized -Continue Zosyn, OK to advance diet per surgery, no plan for OR at this time -MRSA screen positive, vancomycin added especially with setting where she has had recent hospitalization instrumentation. No definitive cultures from the source will be available. Slow but persistent recovery. Plan for short course of vancomycin, dosing per pharmacy. - Advancing diet improving but not at goal, start PT and OT - Consider mirtazapine versus Megace for appetite stimulant. Recovery from a GI standpoint just no interest in food #ACS #S/P EVAR #CABGx4 #Known CAD - Elevated troponin, extensive CAD Hx, s/p bypass x4, EVAR in October, now with dynamic T-wave changes, have now stabilized. - No chest pain or ongoing symptoms, markers downtrending, per cardiology she does appear to have had a cardiac event, now on the recovery side - Cardiology consult, DC heparin, start ASA, appreciate cardiology recs/mgmt, medical management as above. High risk catheterization outweighs benefit at this time per cardiology - Frequent Ectopy, ST chagnes concerning, take to stores laborer by cardiology, no acute disease final report pending, back to PCU slight tenderness along the ventral forearm. Ultrasound to rule out thrombophlebitis, #Hypokalemia -IV repletion x 2 doses, recheck in AM #Anemia -Hematoma on CT, hgb stable at 8.5 this AM down from 11.5 baseline, thinners as above -Stable hemoglobin, will discuss with cardiology restarting the Plavix - hgb stable at 8.6 #JUNE - Baseline creatinine 0.9, currently 1.9, making good urine - Clinically consistent with hypovolemia, fluid resuscitation per emergency department and sepsis protocol -at baseline, stable after cath #Pulmonary nodule - Noted on CT, outpatient follow-up #Senile Alzheimer's dementia - Mild to moderate,-high risk for cognitive decompensation/sundowning - Family at bedside, encouraged gentle redirection, minimize sedatives #Hypertension - Stable blood pressure remains at goal, continue antihypertensives #Hyperlipidemia -Statin #FEN -advnace diet as above, slow improviement, OK to DC IVF #CODE STATUS -DNR/DNI per her wishes, confirmed with the daughter over the telephone at the time of admission Admission and Anticipated Discharge Date Admission Date: March 31, 2025 Subjective Doing well this morning. Has not had much of an appetite. Complaining of pain along the left arm from the catheterization site. Otherwise no palpitations, chest pain. Nausea vomiting or shortness of breath. Abdominal pain is nearly completely resolved. She does states that her appetite is low she is really just not hungry for anything. No loose stools. Has not been up walking much at this point. No other events or new concerns per nursing staff or patient Physical Exam Physical Exam: Cardiovascular: tachycardia with regular rhythm. No murmurs, rubs or gallops. Intact distal pulses. Pulmonary/Chest: No respiratory distress. Breath sounds clear and equal bilaterally. No wheezes or rales. Abdominal: Mild tenderness to palpation mostly on the right, no distention or rigidity, no rebound or referral. Again essentially unchanged compared to yesterday Musculoskeletal: 1+ pitting edema bilaterally,no tenderness or deformity noted. Skin: Warm and dry. No rash, erythema, pallor or cyanosis Psychiatric: Appropriate mood and affect for situation. EXTR: Mild tenderness along the ventral aspect of the left forearm proximal cath site. There is no palpable cord tenderness does not track along vasculature is fairly diffuse. No overlying bruise, hematoma or induration Neurological: Alert and keenly responsive. confused, responses often do not follow with questioning, CN II-XII grossly intact, moving all extremities equally and fully. Results & Data Results & Data Vital Signs (Past 12 Hours) Vital Signs Temp Pulse Pulse Resp BP Pulse Ox O2 Del Method 04/05/25 11:57 36.6 C 79 18 160/82 H 97 Room Air 04/05/25 10:07 Room Air 04/05/25 08:08 36.5 C 81 18 160/82 H 96 Room Air 04/05/25 06:05 95 Room Air 04/05/25 05:58 76 Laboratory Results 03/31/25 12:32 Aerobic Blood Culture - Final Blood No growth in Aerobic bottle after 5 days. Anaerobic Blood Culture - Final 03/31/25 12:30 Aerobic Blood Culture - Final Blood No growth in Aerobic bottle after 5 days. Anaerobic Blood Culture - Final 04/05/25 05:53 WBC 10.84 H RBC 2.95 L Hgb 8.6 L Hct 26.4 L MCV 89.5 MCH 29.2 MCHC 32.6 RDW Std Deviation 49.2 H RDW Coeff of Lea 15.1 H Plt Count 223 MPV 10.4 Immature Gran % (Auto) 0.6 Neut % (Auto) 75.1 Lymph % (Auto) 12.4 [place] % (Auto) 7.7 Eos % (Auto) 4.0 Baso % (Auto) 0.2 Neut # (Auto) 8.15 H Lymph # (Auto) 1.34 [place] # (Auto) 0.83 H Eos # (Auto) 0.43 Baso # (Auto) 0.02 Immature Gran # (Auto) 0.07 Sodium 143 Potassium 3.2 L Chloride 114 H Carbon Dioxide 21 Anion Gap 8 BUN 9 Creatinine 1.19 Est Cr Clr Drug Dosing 31.4 eGFR 45.09 BUN/Creatinine Ratio 7.6 L Glucose 108 H Calcium 7.7 L Magnesium 1.6 L PG Care Time/CCT Total # of Minutes Spent Total Time Spent with Patient: Total time spent is greater than 50% in coordination of care (as documented) at patient's floor/unit and/or counseling patient: Coding Level of Care Code 77302 SUB INP/OBS CARE 2/35MIN Diagnoses Post op infection T81.40XA JUNE (acute kidney injury) N17.9 Elevated troponin R79.89 Nausea & vomiting R11.2 H/O insertion of cholecystostomy tube Z98.890 SDAT (senile dementia of Alzheimer's type) G30.1; F02.80 Atherosclerosis of both carotid arteries I65.23 Laterality: bilateral Pulmonary emphysema J43.9 PAD (peripheral artery disease) I73.9 Prediabetes R73.03 (7) Carotid artery plaque Laterality: bilateral Qualified Code(s): I65.23 - Occlusion and stenosis of bilateral carotid arteries
--- NOTE | 2025-04-05 19:49 | Ultrasound Report ---
INDICATION: Left arm pain COMPARISON: None TECHNIQUE: Duplex ultrasound scanning of the left jugular, subclavian, axillary, branchial, radial, and ulnar veins was performed. FINDINGS: The left upper extremity venous system was evaluated using grayscale, color, and spectral Doppler ultrasound. The left internal jugular, subclavian, axillary, branchial, basilic, cephalic, and right subclavian veins proved to be patent and compressible, and displayed no evidence of deep vein thrombosis. Incidentally noted is diffuse plaque formation in the distal aspect of the radial artery. Small amount of arterial flow noted. IMPRESSION: No evidence of deep vein thrombosis found in the left upper extremity venous system. Incidentally noted is diffuse plaque formation in the distal aspect of the radial artery with diminished blood flow. Further evaluation of the radial artery showed be considered with CT angiogram if clinically warranted. Electronically signed by Tyrone Robbins 04-05-2025 7:49 PM
--- NOTE | 2025-04-05 22:07 | Cardiology Progress Note ---
Date of Service April 05, 2025 Assessment & Plan (1) Non-ST elevation (NSTEMI) myocardial infarction: (2) CAD (coronary artery disease): (3) S/P CABG x 4: (4) Hyperlipidemia: (5) Hypertension: Plan ASSESSMENT/PLAN: 1. NSTEMI: May be due to demand ischemia in the setting of possible sepsis, and her abdominal complaints days after cholecystectomy. No acute lesion for which intervention was recommended by interventional cardiology on 04/04/2025 cath. Continue aspirin 81 mg daily. Consider resuming Plavix when safe from a surgical standpoint. Consider cardiac rehab on discharge. Resume statin therapy when okay from a hospital/surgical standpoint. 2. CAD s/p CABG x 4: Patent bypass grafts on 04/04/2025 cath. Moderate to severe anastomotic lesions involving the SALINAS to LAD and SVG to distal RCA. Medical therapy recommended. Continue aspirin, beta-geneva. Resume statin therapy as above. 3. Hypertension: Blood pressure has been mostly elevated today. Resume losartan 25 mg daily, her home medication. Continue beta-geneva. 4. Dyslipidemia: Resume statin therapy. 5. Disposition: Cardiology will sign off at this time. Please arrange follow- up with [facility] cardiology on discharge. Admission and Anticipated Discharge Date Admission Date: March 31, 2025 Subjective Patient was seen earlier this afternoon. She denies chest pain, shortness of breath, syncope, near syncope, palpitations, edema, or bleeding. She was asking when she could go home. She was still receiving intravenous antibiotics at that time. She has no significant complaints from her cath site. She was unaccompanied. Physical Exam Physical Exam: Gen.: No acute distress. Alert. HEENT: Anicteric sclera. Neck: No JVD. Cardiac: Regular with ectopy. Normal S1-S2. 1/6 systolic murmur. Pulmonary: Clear to auscultation bilaterally without wheezes, rales, or rhonchi. Abdomen: Soft, nontender, nondistended, with normoactive bowel sounds. No bruits noted. Extremities: 2+ radial pulses bilaterally. Left ulnar cath site is clean, dry, and intact without erythema or discharge. 2+ posterior tibialis pulses bilaterally. Trace bilateral lower extremity edema. No cyanosis. Results & Data Vital Signs (Past 12 Hours) Vital Signs Temp Pulse Pulse Resp BP Pulse Ox O2 Del Method 12/13/25 20:02 36.7 C 69 17 156/67 H 96 Room Air 04/05/25 16:11 77 04/05/25 15:29 36.7 C 73 18 162/63 H 96 Room Air 04/05/25 11:57 36.6 C 79 18 160/82 H 97 Room Air 04/05/25 10:07 Room Air Intake & Output 04/03/25 04/04/25 04/05/25 04/06/25 06:59 06:59 06:59 06:59 Intake Total 2267.917 / 2267.917 4453.333 / 4453.333 910.000 / 910.000 748.333 / 748.333 Output Total 600 / 600 475 / 475 1300 / 1300 402 / 402 Balance 1667.917 / 1844.693 7645.333 / 3978.333 -390.000 / -390.000 346.333 / 346.333 Weight 147 lb 11.355 oz 156 lb 4.924 oz 146 lb Laboratory Results Laboratory Results - last 24 hr 04/05/25 05:53 WBC 10.84 H RBC 2.95 L Hgb 8.6 L Hct 26.4 L MCV 89.5 MCH 29.2 MCHC 32.6 RDW Std Deviation 49.2 H RDW Coeff of Lea 15.1 H Plt Count 223 MPV 10.4 Immature Gran % (Auto) 0.6 Neut % (Auto) 75.1 Lymph % (Auto) 12.4 [place] % (Auto) 7.7 Eos % (Auto) 4.0 Baso % (Auto) 0.2 Neut # (Auto) 8.15 H Lymph # (Auto) 1.34 [place] # (Auto) 0.83 H Eos # (Auto) 0.43 Baso # (Auto) 0.02 Immature Gran # (Auto) 0.07 Sodium 143 Potassium 3.2 L Chloride 114 H Carbon Dioxide 21 Anion Gap 8 BUN 9 Creatinine 1.19 Est Cr Clr Drug Dosing 31.4 eGFR 45.09 BUN/Creatinine Ratio 7.6 L Glucose 108 H Calcium 7.7 L Magnesium 1.6 L Diagnostic Findings Labs reviewed and notable for peak high-sensitivity troponin 8557 on 04/01/2025, mild hypokalemia, stable renal function, nonelevated transaminase levels, stable anemia over the past several days. Mild leukocytosis. Negative blood cultures x 2 from 03/31/2025. Telemetry personally reviewed: Sinus rhythm with nonsustained SVT and ventricular triplets. Cath report reviewed from 04/04/2025: LM -no significant stenosis, ectatic at bifurcation LAD -50% proximal stenosis at takeoff of first septal. 100% earlymid chronic total occlusion just after small first diagonal. D1 without significant disease. Circumflex -medium caliber, 100% earlymid chronic total occlusion Small ramus without significant disease. RCA -dominant, 100% proximal chronic total occlusion. SALINAS to LADpatent, angulated approximately with 40% stenosis proximal graft stenosis. 60 to 70% stenosis at LAD anastomosis. LAD after anastomosis without significant disease and OLGA-3 flow. SVG to [id number] patent. OM after anastomosis without disease. SVG to OM2--widely patent without significant disease. SVG to distal RCApatent with 50 to 60% stenosis at anastomosis. PDA medium caliber without significant disease and provides faint collaterals to LAD. LVEDP -15 Left arm Doppler 04/05/2025: No DVT in left upper extremity. Diffuse plaque formation in the distal aspect of the left radial artery. CT abdomen/pelvis 03/31/2025: Massive amount of free air within the abdomen unchanged from prior exam. Stable infrarenal AAA status post endovascular repair. Postoperative changes of right to left femorofemoral bypass graft. Postoperative changes from prior cholecystectomy. Infectious disease consultation report reviewed from 04/04/2025. Medications Administered Current Inpatient Medications Acetaminophen (Acetaminophen 325 Mg Tab) 650 mg PO Q4H PRN PRN Reason: Pain or Fever Stop: 04/30/25 18:50 Aspirin (Aspirin 81 Mg Ectab) [facility] [place] Stop: 05/01/25 12:59 Last Admin: 04/05/25 08:13 Dose: 81 mg Piperacillin Sod/Tazobactam Sod (Zosyn) 4.5 gm in 100 mls @ 25 mls/hr IV Q8H [facility]; Protocol Stop: 04/10/25 21:59 Last Admin: 04/05/25 18:34 Dose: 25 mls/hr Metoprolol Succinate (Metoprolol Succ 50mg Ext Rel Tab) 50 [facility] [place] Stop: 05/02/25 08:59 Last Admin: 12/13/25 08:13 Dose: 50 mg Mirtazapine (Mirtazapine Tab 15 Mg Tab) 15 mg PO HS PRN PRN Reason: Sleep Stop: 04/30/25 18:50 Morphine Sulfate (Morphine Sulfate 2 Mg/Ml Carp) 2 mg IV Q2H PRN PRN Reason: Pain Stop: 04/14/25 18:50 Ondansetron HCl (Ondansetron Inj 2 Mg/Ml 2 Ml Vial) 4 mg IV Q6H PRN PRN Reason: Nausea Stop: 04/30/25 18:50 Pantoprazole Sodium (Pantoprazole 40 Mg Tab) 40 mg PO DAILY LEMUEL Stop: 05/01/25 12:59 Last Admin: 04/05/25 08:13 Dose: 40 mg Polyethylene Glycol (Polyethylene (Miralax) 17 Gm Pack) 17 gm PO DAILY LEMUEL Stop: 05/02/25 11:59 Last Admin: 04/05/25 08:13 Dose: Not Given PG Care Time/CCT Total # of Minutes Spent Total Time Spent with Patient: Total time spent is greater than 50% in coordination of care (as documented) at patient's floor/unit and/or counseling patient: Coding Level of Care Code 35512 SUB INP/OBS CARE 3/50MIN Diagnoses Non-ST elevation (NSTEMI) myocardial infarction I21.4 CAD (coronary artery disease) I25.10 S/P CABG x 4 Z95.1 Pure hypercholesterolemia E78.00 Hyperlipidemia type: pure hypercholesterolemia Primary hypertension I10 Hypertension type: primary hypertension (4) Hyperlipidemia Hyperlipidemia type: pure hypercholesterolemia Qualified Code(s): E78.00 - Pure hypercholesterolemia, unspecified (5) Hypertension Hypertension type: primary hypertension Qualified Code(s): I10 - Essential (primary) hypertension
[2025-04-06 06:14] LABS: Hematocrit (blood only) 26.5 % (37.0-47.0); Hemoglobin 8.7 g/dL (12.0-16.0); Immature Granulocytes # (auto) 0.10 K/uL (0.01-0.20); Immature Granulocytes % (auto) 1.0 %; Mean Corpuscular Hemoglobin 28.9 pg (25.0-34.0); Mean Corpuscular Volume 88.0 fL (80.0-100.0); Platelet Count 259 K/uL (130-400); RDW Standard Deviation 48.5 fL (36.4-46.3); Red Blood Count 3.01 M/uL (4.20-5.40); White Blood Count 10.31 K/ul (4.8-10.8)
[2025-04-06 06:44] LABS: Alanine Aminotransferase 7.0 U/L (7-52); Albumin Globulin Ratio 1.0 (0.9-2); Albumin Level 2.4 gm/dl (3.4-5.0); Alkaline Phosphatase 64.0 U/L (34-104); Anion Gap 6.0 (3-11); Bilirubin,Total 0.5 mg/dl (0.2-1.0); Blood Urea Nitrogen 7.0 mg/dl (6-23); Calcium 7.4 mg/dl (8.6-10.3); Carbon Dioxide 23.0 mmol/L (21-32); Chloride 113.0 mmol/L (98-107); Creatinine Clr Calc Pharmacy 32.9 ml/min; Globulin 2.3 gm/dl (2.5-4.0); Glucose 98.0 mg/dl (70-99(Fasting)); Magnesium 1.6 mg/dl (1.7-2.4); Potassium 3.2 mmol/L (3.5-5.1); Sodium 142.0 mmol/L (136-145); Total Protein 4.7 gm/dl (6.0-8.3)
[2025-04-06] MEDS: LOSARTAN POTASSIUM 25 MG TAB PO SCH (09:02)
--- NOTE | 2025-04-06 11:28 | Hospitalist Progress Note ---
Date of Service April 06, 2025 Assessment & Plan (1) Post op infection: (2) JUNE (acute kidney injury): (3) Elevated troponin: (4) Nausea & vomiting: (5) H/O insertion of cholecystostomy tube: (6) SDAT (senile dementia of Alzheimer's type): (7) Carotid artery plaque: (8) Pulmonary emphysema: (9) PAD (peripheral artery disease): (10) Prediabetes: Plan #Vomiting #POD#10 laparoscopic cholecystectomy perc harry tube removal #Abdominal pain, abnormal CT findings #Lactic acidemia #Elevated procalcitonin -No jesus signs of abdominal peritonitis, surgical consultation completed, clinical exam improving, lactate has normalized -Continue Zosyn, OK to advance diet per surgery, no plan for OR at this time -MRSA screen positive, vancomycin added especially with setting where she has had recent hospitalization instrumentation. No definitive cultures from the [facility] will be available. Slow but persistent recovery. Plan for short course of vancomycin, dosing per pharmacy. Home -Reviewed with ID, discontinue vancomycin, will continue Zosyn, coverage for a full 7-day course. No definitive cultures. Tolerating antibiotics thus far. -Marked improvement in CRP and procalcitonin, follow clinically consideration for Augmentin although has been reluctant because her oral intake is still limited thus far. - Advancing diet improving but not at goal, start PT and OT - Consider mirtazapine versus Megace for appetite stimulant. Recovery from a GI standpoint just no interest in food #ACS #S/P EVAR #CABGx4 #Known CAD - Elevated troponin, extensive CAD Hx, s/p bypass x4, EVAR in October, now with dynamic T-wave changes, have now stabilized. - No chest pain or ongoing symptoms, markers downtrending, per cardiology she does appear to have had a cardiac event, now on the recovery side - Cardiology consult, DC heparin, start ASA, appreciate cardiology recs/mgmt, medical management as above. High risk catheterization outweighs benefit at this time per cardiology - See cardiology consult, losartan added for blood pressure control, surgery previously okay with restarting anticoagulants, Plavix was restarted -No lesions on angiogram 04/04 underlying disease noted, medical management advised, #Hypertension - BP had been trending upward, losartan was restarted at 25, may need to increase to 50 depending upon response #Hypokalemia -IV repletion x 2 doses, recheck in AM - Repeat repletion, daily checks #Anemia -Hematoma on CT, hgb stable at 8.5 this AM down from 11.5 baseline, thinners as above -Stable hemoglobin, will discuss with cardiology restarting the Plavix - hgb stable at 8.6 #JUNE - Baseline creatinine 0.9, currently 1.9, making good urine - Clinically consistent with hypovolemia, fluid resuscitation per emergency department and sepsis protocol -at baseline, stable after cath #Pulmonary nodule - Noted on CT, outpatient follow-up #Senile Alzheimer's dementia - Mild to moderate,-high risk for cognitive decompensation/sundowning - Family at bedside, encouraged gentle redirection, minimize sedatives #Hyperlipidemia -Statin #FEN -advnace diet as above, slow improviement, OK to DC IVF #CODE STATUS -DNR/DNI per her wishes, confirmed with the daughter over the telephone at the time of admission Admission and Anticipated Discharge Date Admission Date: March 31, 2025 Subjective Doing a bit better today. Still slow oral intake. Only limited appetite overall. No increased abdominal pain or discomfort. Reports passing gas. No issues with bowel or bladder function. No chest pain or palpitations. She was sitting up at the chair at the bedside eating breakfast or trying to at least when I saw her. Only a very limited amount of her tray have been consumed. Physical Exam Physical Exam: Cardiovascular: tachycardia with regular rhythm. No murmurs, rubs or gallops. Intact distal pulses. Pulmonary/Chest: No respiratory distress. Breath sounds clear and equal bilaterally. No wheezes or rales. Abdominal: Mild tenderness to palpation mostly on the right, no distention or rigidity, no rebound or referral. Again essentially unchanged compared to yesterday Musculoskeletal: 1+ pitting edema bilaterally,no tenderness or deformity noted. Skin: Warm and dry. No rash, erythema, pallor or cyanosis Psychiatric: Appropriate mood and affect for situation. EXTR: Mild tenderness along the ventral aspect of the left forearm proximal cath site. There is no palpable cord tenderness does not track along vasculature is fairly diffuse. No overlying bruise, hematoma or induration Neurological: Alert and keenly responsive. confused, responses often do not follow with questioning, CN II-XII grossly intact, moving all extremities equally and fully. Results & Data Results & Data Vital Signs (Past 12 Hours) Vital Signs Temp Pulse Resp BP Pulse Ox O2 Del Method 04/06/25 07:50 36.7 C 89 18 185/67 H 95 Room Air 04/06/25 04:02 36.9 C 75 23 166/72 H 94 Room Air Laboratory Results 03/31/25 12:32 Aerobic Blood Culture - Final Blood No growth in Aerobic bottle after 5 days. Anaerobic Blood Culture - Final 03/31/25 12:30 Aerobic Blood Culture - Final Blood No growth in Aerobic bottle after 5 days. Anaerobic Blood Culture - Final 04/06/25 05:58 WBC 10.31 RBC 3.01 L Hgb 8.7 L Hct 26.5 L MCV 88.0 MCH 28.9 MCHC 32.8 RDW Std Deviation 48.5 H RDW Coeff of Lea 15.1 H Plt Count 259 MPV 10.0 Immature Gran % (Auto) 1.0 Neut % (Auto) 66.9 Lymph % (Auto) 17.7 Emanuel % (Auto) 9.0 Eos % (Auto) 5.0 Baso % (Auto) 0.4 Neut # (Auto) 6.89 H Lymph # (Auto) 1.83 Emanuel # (Auto) 0.93 H Eos # (Auto) 0.52 H Baso # (Auto) 0.04 Immature Gran # (Auto) 0.10 Sodium 142 Potassium 3.2 L Chloride 113 H Carbon Dioxide 23 Anion Gap 6 BUN 7 Creatinine 1.12 Est Cr Clr Drug Dosing 32.9 eGFR 48.49 BUN/Creatinine Ratio 6.3 L Glucose 98 Calcium 7.4 L Magnesium 1.6 L Total Bilirubin 0.5 AST 9 L ALT 7 Alkaline Phosphatase 64 C-Reactive Protein 5.24 H Total Protein 4.7 L Albumin 2.4 L Globulin 2.3 L Albumin/Globulin Ratio 1.0 Procalcitonin 2.69 H PG Care Time/CCT Total # of Minutes Spent Total Time Spent with Patient: Total time spent is greater than 50% in coordination of care (as documented) at patient's floor/unit and/or counseling patient: Coding Level of Care Code 78353 SUB INP/OBS CARE 2/35MIN Diagnoses Post op infection T81.40XA JUNE (acute kidney injury) N17.9 Elevated troponin R79.89 Nausea & vomiting R11.2 H/O insertion of cholecystostomy tube Z98.890 SDAT (senile dementia of Alzheimer's type) G30.1; F02.80 Atherosclerosis of both carotid arteries I65.23 Laterality: bilateral Pulmonary emphysema J43.9 PAD (peripheral artery disease) I73.9 Prediabetes R73.03 (7) Carotid artery plaque Laterality: bilateral Qualified Code(s): I65.23 - Occlusion and stenosis of bilateral carotid arteries
[2025-04-06] MEDS: POTASSIUM CHLORIDE / WTR 10 MEQ/100 ML PLCT IV SCH (12:39)
[2025-04-07 05:57] LABS: Hematocrit (blood only) 26.7 % (37.0-47.0); Hemoglobin 8.5 g/dL (12.0-16.0); Immature Granulocytes # (auto) 0.07 K/uL (0.01-0.20); Immature Granulocytes % (auto) 0.8 %; Mean Corpuscular Hemoglobin 28.3 pg (25.0-34.0); Mean Corpuscular Volume 89.0 fL (80.0-100.0); Platelet Count 294 K/uL (130-400); RDW Standard Deviation 49.1 fL (36.4-46.3); Red Blood Count 3.00 M/uL (4.20-5.40); White Blood Count 8.31 K/ul (4.8-10.8)
[2025-04-07 06:15] LABS: Alanine Aminotransferase 6.0 U/L (7-52); Albumin Globulin Ratio 1.0 (0.9-2); Albumin Level 2.5 gm/dl (3.4-5.0); Alkaline Phosphatase 54.0 U/L (34-104); Anion Gap 6.0 (3-11); Bilirubin,Total 0.5 mg/dl (0.2-1.0); Blood Urea Nitrogen 6.0 mg/dl (6-23); Calcium 7.8 mg/dl (8.6-10.3); Carbon Dioxide 25.0 mmol/L (21-32); Chloride 112.0 mmol/L (98-107); Creatinine Clr Calc Pharmacy 34.8 ml/min; Globulin 2.5 gm/dl (2.5-4.0); Glucose 105.0 mg/dl (70-99(Fasting)); Magnesium 1.7 mg/dl (1.7-2.4); Potassium 3.2 mmol/L (3.5-5.1); Sodium 143.0 mmol/L (136-145); Total Protein 5.0 gm/dl (6.0-8.3)
[2025-04-07] MEDS: CLOPIDOGREL BISULFATE 75 MG TAB PO SCH (08:32)
[2025-04-07] MEDS: POTASSIUM CHLORIDE / WTR 10 MEQ/100 ML PLCT IV SCH (08:37)
[2025-04-07] MEDS: MAGNESIUM SULFATE / D5W 1 GM/100 ML BAG IV ONE (12:05)
--- NOTE | 2025-04-07 12:10 | Hospitalist Progress Note ---
Date of Service April 07, 2025 Assessment & Plan (1) Post op infection: (2) JUNE (acute kidney injury): (3) Elevated troponin: (4) Nausea & vomiting: (5) H/O insertion of cholecystostomy tube: (6) SDAT (senile dementia of Alzheimer's type): (7) Carotid artery plaque: (8) Pulmonary emphysema: (9) PAD (peripheral artery disease): (10) Prediabetes: Plan #Vomiting #POD#11 laparoscopic cholecystectomy perc harry tube removal #Abdominal pain, abnormal CT findings #Lactic acidemia #Elevated procalcitonin -No jesus signs of abdominal peritonitis, surgical consultation completed, clinical exam improving, lactate has normalized -Continue Zosyn, OK to advance diet per surgery, no plan for OR at this time -MRSA screen positive, vancomycin added especially with setting where she has had recent hospitalization instrumentation. No definitive cultures from the [facility] will be available. Slow but persistent recovery. Plan for short course of vancomycin, dosing per pharmacy. Home -Reviewed with ID, discontinue vancomycin, will continue Zosyn, coverage for a full 7-day course. No definitive cultures. Tolerating antibiotics thus far. -Marked improvement in CRP and procalcitonin, follow clinically consideration for Augmentin although has been reluctant because her oral intake is still limited thus far. - Advancing diet improving but not at goal, continue PT and OT - likely discharge home tomorrow with 14/11 care #ACS #S/P EVAR #CABGx4 #Known CAD - Elevated troponin, extensive CAD Hx, s/p bypass x4, EVAR in October, now with dynamic T-wave changes, have now stabilized. - No chest pain or ongoing symptoms, markers downtrending, per cardiology she does appear to have had a cardiac event, now on the recovery side - Cardiology consult, DC heparin, start ASA, appreciate cardiology recs/mgmt, medical management as above. High risk catheterization outweighs benefit at this time per cardiology - See cardiology consult, losartan added for blood pressure control, surgery previously okay with restarting anticoagulants, Plavix was restarted -No lesions on angiogram 04/04 underlying disease noted, medical management advised, #Hypertension - BP had been trending upward, losartan was restarted at 25 #Hypokalemia -Continue IV repletion #Anemia -Hematoma on CT, hgb stable at 8.5 this AM down from 11.5 baseline, thinners as above -Stable hemoglobin, will discuss with cardiology restarting the Plavix - hgb stable at 8.6 #JUNE - Baseline creatinine 0.9, currently 1.9, making good urine - Clinically consistent with hypovolemia, fluid resuscitation per emergency department and sepsis protocol -at baseline, stable after cath #Pulmonary nodule - Noted on CT, outpatient follow-up #Senile Alzheimer's dementia - Mild to moderate,-high risk for cognitive decompensation/sundowning - Family at bedside, encouraged gentle redirection, minimize sedatives #Hyperlipidemia -Statin #FEN -advance diet as above, slow improvement, OK to DC IVF #CODE STATUS -DNR/DNI per her wishes, confirmed with the daughter over the telephone at the time of admission VTE Prophylaxis - ideally would start Lovenox which was discussed with the patient but since she is ongly going to be here another night, just encouraged amublation for today Disposition - continue on med/tele overnight, likely home tomorrow Admission and Anticipated Discharge Date Admission Date: March 31, 2025 Subjective Still eating only small amounts but generally feeling better and feels like she can manage at home. Discussed with daughter over the phone Physical Exam Respiratory: normal respiratory effort, lungs clear to auscultation Cardiovascular: RRR, no murmur, no edema Gastrointestinal (Abdomen): normal bowel sounds, soft, nontender, no hepatosplenomegaly Results & Data Results & Data Vital Signs (Past 12 Hours) Vital Signs Temp Pulse Resp BP Pulse Ox O2 Del Method 04/07/25 10:57 36.3 C L 74 26 H 117/72 97 Room Air 04/07/25 07:43 36.7 C 82 18 156/68 H 93 Room Air 04/07/25 03:55 36.7 C 71 17 177/69 H 95 Room Air 04/07/25 00:22 36.7 C 70 16 173/65 H 95 Room Air PG Care Time/CCT Total # of Minutes Spent Total Time Spent with Patient: Total time spent is greater than 50% in coordination of care (as documented) at patient's floor/unit and/or counseling patient: Coding Level of Care Code 26294 SUB INP/OBS CARE 2/35MIN Diagnoses Post op infection T81.40XA JUNE (acute kidney injury) N17.9 Elevated troponin R79.89 Nausea & vomiting R11.2 H/O insertion of cholecystostomy tube Z98.890 SDAT (senile dementia of Alzheimer's type) G30.1; F02.80 Atherosclerosis of both carotid arteries I65.23 Laterality: bilateral Pulmonary emphysema J43.9 PAD (peripheral artery disease) I73.9 Prediabetes R73.03 (7) Carotid artery plaque Laterality: bilateral Qualified Code(s): I65.23 - Occlusion and stenosis of bilateral carotid arteries
[2025-04-07] MEDS ORDERED: ENOXAPARIN INJ 40 MG/0.4 ML SYR SQ SCH (21:00)
[2025-04-07] MEDS: ROSUVASTATIN CALCIUM 10 MG TAB PO SCH (21:55)
[2025-04-08 04:11] VITALS: TEMP 97.9
[2025-04-08 08:01] VITALS: BP 156/79; PULSE 71; RESP 16; O2SAT 96
[2025-04-08 09:53] LABS: Anion Gap 7.0 (3-11); Blood Urea Nitrogen 7.0 mg/dl (6-23); Calcium 8.1 mg/dl (8.6-10.3); Carbon Dioxide 25.0 mmol/L (21-32); Chloride 111.0 mmol/L (98-107); Creatinine Clr Calc Pharmacy 32.4 ml/min; Glucose 114.0 mg/dl (70-99(Fasting)); Magnesium 1.9 mg/dl (1.7-2.4); Potassium 3.3 mmol/L (3.5-5.1); Sodium 143.0 mmol/L (136-145)
--- NOTE | 2025-04-08 12:51 | Discharge Summary ---
Discharge Summary Date of Service April 08, 2025 Principal Dx & Hospital Course #1 = Principal Diagnosis (1) Post op infection: (2) JUNE (acute kidney injury): (3) Elevated troponin: (4) Nausea & vomiting: (5) H/O insertion of cholecystostomy tube: (6) SDAT (senile dementia of Alzheimer's type): (7) Carotid artery plaque: (8) Pulmonary emphysema: (9) PAD (peripheral artery disease): (10) Prediabetes: Ai Redd is an 85 year old female admitted to [facility] from March 31 - 2024 due to nausea and vomiting following cholecystectomy. She was diagnosed with possible post operative infection with elevated procalcitonin treated with 7 days of intravenous Zosyn during her hospitalization with no further antibiotics required on discharge. Blood cultures and imaging was negative however. She was also diagnosed with acute kidney injury which improved with intravenous fluids. She also had a significant troponin increase with concern for NSTEMI however cardiac catheterization showed patent bypass grafts and no intervention was required therefore suspect this was demand-ischemia (type 2 NSTEMI). Notes For Next Care Provider Routine surgery follow up Medication Changes From Visit Metoprolol succinate was increased to 50mg daily to medically optimize coronary artery disease Admission HPI Per Admitting Provider 85 Y/o F POD#4 Lap chol hx of MCI, Epmhysema, CAD, HTN, HLD, Stage 3 CKD, presents with 24 hour hxdecreaased appetite and vomiting. Some of history obtained from patient with assistance of her daughter and POA over the telephone at the bedside. Doing well Monday after surgery, then decreased appetite, not eating much/feeling unwell and then had vomiting multiple times today with + abdominal pain. In the ER the patient underwent a CT a/p that showed evidence of moderate pneumoperitoneum, likely postsurgical. In addition to several operative bed fluid collections, not unexpected in the early postoperative setting, likely hematoma. Patient reports chills. No BM since surgery, but passing some gas. She denies any fevers, chest pain, shortness of breath. Not much appetite. Surgical consult supportive of admission, NPO, bowel rest, IV abx, serial exams and repeat CT with any decompensation. Discharge Exam Respiratory normal respiratory effort, lungs clear to auscultation Cardiovascular RRR, no murmur, no edema Gastrointestinal (Abdomen) normal bowel sounds, soft, nontender, no hepatosplenomegaly Discharge Plan Discharge Items Patient Disposition: Home - Self-Care Reason For Visit: VOMITING, JUST HAD GALLBLADDER REMOVED, DOC REF Discharge Diagnosis: Nausea and vomiting status post cholecystectomy Non ST elevation myocardial infarction - suspected demand-ischemia in setting of sepsis Condition on Discharge: Fair Activity: Resume your previous activity Non-emergency contact: Surgeon Call non-emergency contact if: you have any medication questions, your symptoms worsen, you have a fever and your wound has increased redness Follow-up/Referrals: Alexander Salguero MD [Primary Care Provider] - 04/15/25 2:00 pm Kirk Fernandes, [Surgeon] - Diet: Low Fiber Addtl Attending Provider Instructions: You were admitted to [facility] from March 31 - 2024 due to nausea and vomiting following cholecystectomy. You were additionally diagnosed with possible post operative infection, acute kidney injury and non ST elevation myocardial infarction (although suspect this was from demand ischemia rather than true heart attack). You were treated with intravenous fluids and antibiotics and made a slow recovery and now tolerating increased diet. No further antibiotics required on discharge. You underwent cardiac catheterization which showed patent bypass grafts and recommend continued medical management for this. Pending Studies at Discharge: No Stand-Alone Forms: My [facility], Smoking Cessation Medications and DC Order Prescriptions: Continued rosuvastatin 10 mg tablet 10 mg PO HS Qty: 90 3RF aspirin 81 mg tablet,chewable 81 mg PO HS (DME) [facility] See Rx Instructions .MEDSUPPLY Qty: 1 0RF Rx Instructions: As directed losartan 25 mg Tablet 25 mg PO DAILY clopidogrel 75 mg tablet 75 mg PO DAILY Patient Comments: aware to get holding instructions from surgeon mirtazapine 15 mg tablet 15 mg PO HS PRN (Reason: Sleep) oxycodone 5 mg tablet 5 mg PO Q6H PRN (Reason: pain) Qty: 15 0RF Rx Instructions: Initial therapy post surgery Changed metoprolol succinate 25 mg Tablet Extended Release 24 Hr 50 mg PO QAM Qty: 0 0RF Discharge Orders: Discharge Order (Routine); Ordered 04/08/25 Ordered By: Cordell Ruby Admission Data Admit Date/Time: 03/31/25 16:13 Attending Provider: Cordell Ruby Admit Provider: Rashard Guo Primary Care Provider: Alexander Salguero Other Providers: Franco Gracia; Rashard Guo; Guerrero [place]; Hedy Carlos; Alexander Jane Other Interventions: Discharge Summary Assessment (RN) Last Done: 04/08/25 12:55 Hospital Stay Data Consultations 03/31/25 14:22 Consult General Surgery Stat 03/31/25 14:31 ED Decision to Admit Stat 03/31/25 18:51 Consult Cardiology Routine 04/01/25 08:45 Consult Cardiology Stat 04/04/25 07:31 Consult Infectious Diseases Routine 04/04/25 14:34 Consult Cardiology Stat Procedures Performed Operation Date: 04/04/25 14:15 Actual Procedures p Cineradiography w/Routine Exam - Alexander Jane MD p Cath, Left w/Cors Vent Grafts - Alexander Jane MD Diagnostic Imagining Performed 03/31/25 12:02 CT Abd and Pelvis [CT abd pelvis IV con only] Stat 03/31/25 22:10 CT abd pelvis wo con Stat 04/04/25 14:54 CL Cath Imgs for PACS use only Routine 04/05/25 14:47 US arm [US venous doppler UE LT] Urgent Pending Results Patient Have Any Pending Studies at Discharge: No Discharge Instructions Given to Patient (Per Discharging Provider) You were admitted to [facility] from March 31 - 2024 due to nausea and vomiting following cholecystectomy. You were additionally diagnosed with possible post operative infection, acute kidney injury and non ST elevation myocardial infarction (although suspect this was from demand ischemia rather than true heart attack). You were treated with intravenous fluids and antibiotics and made a slow recovery and now tolerating increased diet. No further antibiotics required on discharge. You underwent cardiac catheterization which showed patent bypass grafts and recommend continued medical management for this. Total Time Total Time Spent Total Time Spent (In Minutes): 40 Coding Level of Care Code 78390 INP/OBS DISCH >30 MIN Diagnoses Post op infection T81.40XA JUNE (acute kidney injury) N17.9 Elevated troponin R79.89 Nausea & vomiting R11.2 H/O insertion of cholecystostomy tube Z98.890 SDAT (senile dementia of Alzheimer's type) G30.1; F02.80 Atherosclerosis of both carotid arteries I65.23 Laterality: bilateral Pulmonary emphysema J43.9 PAD (peripheral artery disease) I73.9 Prediabetes R73.03
== END 2025-04-08 13:48 | disposition home or self-care (01) | DRG 862 ==
LOC: ED 11:11 → SUATTDRO 16:13 → 2E 16:13 → 2N 04-07 16:24
DX: J43.9 Emphysema, unspecified; I21.A1 Myocardial infarction type 2; E87.6 Hypokalemia; E87.20 Acidosis, unspecified; A41.9 Sepsis, unspecified organism; I25.10 Atherosclerotic heart disease of native coronary artery without angina pectoris; Z95.1 Presence of aortocoronary bypass graft; Q25.0 Patent ductus arteriosus; R73.03 Prediabetes; T81.43XA Infection following a procedure, organ and space surgical site, initial encounter; Z66 Do not resuscitate; F02.80 Dementia in other diseases classified elsewhere, unspecified severity, without behavioral disturbance, psychotic disturbance, mood disturbance, and anxiety; N17.9 Acute kidney failure, unspecified; R91.1 Solitary pulmonary nodule; E78.5 Hyperlipidemia, unspecified; K66.8 Other specified disorders of peritoneum; Y83.8 Other surgical procedures as the cause of abnormal reaction of the patient, or of later complication, without mention of misadventure at the time of the procedure; N18.9 Chronic kidney disease, unspecified; G30.9 Alzheimer's disease, unspecified; R11.2 Nausea with vomiting, unspecified; I10 Essential (primary) hypertension; D64.9 Anemia, unspecified